=== PATIENT | male | born 1950 | race Caucasian/White ===

== ENCOUNTER 2017-04-10 00:20 | Inpatient (IN) | payer MEDICARE, OTHER ==
[~2017-04-10] VITALS: Ht 185.4 cm; Wt 66.2 kg
[2017-04-10] MEDS ORDERED: PROSCAR5 MG ORAL (00:21)
[2017-04-10] MEDS ORDERED: CRESTOR10 M2 ORAL (00:21)
[2017-04-10] MEDS ORDERED: DONEPEZIL HCL5 M2 ORAL (00:21)
[2017-04-10] MEDS ORDERED: CANDESARTAN CIL16 MG PO (00:21)
[2017-04-10] MEDS ORDERED: TAMSULOSIN HCL0.4 MG ORAL (00:21)
[2017-04-10] MEDS ORDERED: LEVETIRACETAM500 MG ORAL (00:21)
[2017-04-10] MEDS ORDERED: LEXAPRO10 MG ORAL (00:21)
[2017-04-10 00:22] VITALS: BP 146/58
--- NOTE | 2017-04-10 00:45 | Emergency Room Report ---
History of Present Illness General Chief Complaint: Altered Mental Status Source: Family Member, EMS Present Illness HPI 58-year-old male, history of hypertension hyperlipidemia, history of seizures, presenting with altered mental status. Patient currently only oriented to person, history is obtained by his sister at bedside. Patient lives with his sister, there is no industrial services worker, baseline is ANO x4, ambulatory, performs ADLs on his own, sister stated that she witnessed him sliding down the couch, having some upper extremity shaking, possible seizure-like activity, lasted for 3-4 minutes, patient altered afterwards and continues to be altered at this time. No head trauma. No tongue biting or urinary or fecal incontinence. Patient's sister states that he maybe had a seizure 6 years ago, is on keppra, does not otherwise know when his last one was as he just moved in to her apt. Otherwise sister states that he has been in his usual state of health today. Eating and drinking normally, no nausea vomiting diarrhea Allergies: Coded Allergies: No Known Allergies (Unverified , 04/10/17) Patient History Past Medical History: see triage record Past Surgical History: unable to obtain Pertinent Family History: unable to obtain Reviewed Nursing Documentation: PMH: Agreed, PSxH: Agreed Nursing Documentation-PMH Hx Seizures: Yes Review of Systems All Other Systems: limited - not giving hx at this time Physical Exam Vital Signs Date Time Temp Pulse Resp B/P (MAP) Pulse Ox O2 Delivery O2 Flow Rate FiO2 04/10/17 00:09 97.9 72 16 146/58 98 Room Air Sp02 EP Interpretation: reviewed, normal General Appearance: mild distress, other - Away, however appears drowsy, can say his name and random phrases, however not giving appropriate history Head: normocephalic, atraumatic Eyes: bilateral eye normal inspection, bilateral eye PERRL, bilateral eye EOMI ENT: normal ENT inspection, normal pharynx, normal voice, moist mucus membranes Neck: normal inspection, full range of motion, supple Respiratory: normal inspection, lungs clear, normal breath sounds, no respiratory distress, no retraction, no wheezing, speaking full sentences, chest symmetrical Cardiovascular #1: normal inspection, regular rate, rhythm, normal capillary refill Cardiovascular #2: 2+ radial (R), 2+ radial (L) Gastrointestinal: normal inspection, non tender, soft, non-distended, no guarding Musculoskeletal: normal inspection, back normal, normal range of motion, non- tender Neurologic: other - Awake, looking around, oriented to person only, motor strength is intact throughout, Babinski negative bilaterally, sensory is intact , cranial nerves are grossly intact, unable to assess gait Psychiatric: other - Not providing history Skin: normal inspection, normal color, no rash, warm/dry, well hydrated, normal turgor Medical Decision Making Diagnostic Impression: Primary Impression: Altered mental status Additional Impressions: Seizure Bradycardia UTI (urinary tract infection) ER Course 66-year-old male with p/w seizure DDX: Primary seizure, triggered by infection UTI/PNA vs. dehydration vs. medication non compliance Electrolyte disturbance: hypoglycemia vs. hyponatremia vs. hypocalcemia vs. hypomagnesemia Cardiac: Arrythmia/acs Intracranial pathology: intracranial bleed, stroke Plan: BGM EKG Labs, seizure medication levels Consider CT Ativan PRN / anti seizure meds ER course: Patient noted to have 2 episodes of bradycardia, heart rate in the 30s to 40s, blood pressure normal, during that time he was sleeping, when he wakes up due to alarms HR cmoes back up to 60s-70s. patient has not quite come back to his baseline mental status per her sister CT head negative - pending final read +UTI - ceftriaxone given keppra given Disposition: Patient requires admission to telemetry. D/W hospitalist Dr Joseph Please note that this Emergency Department Report was dictated using [employer] helper technology software, occasionally this can lead to erroneous entry secondary to interpretation by the dictation equipment EKG Diagnostic Results EP Interpretation: Yes Rate: normal Rhythm: NSR ST Segments: Right bundle branch block, T wave inversion noted in lead 3 only ASA given to patient: No Rhythm Strip EP Interpretation: Yes Rate: 70 Rhythm: NSR, no PVCs, no ectopy Chest X-ray CXR: Ordered: Yes 1 view Indication: Altered mental status EP interpretation: Yes Interpretation: No consolidation, no effusion, no PTX, no acute cardiopulmonary disease Impression: No acute disease Electronically signed by Calista Ramires MD Laboratory Tests Test 04/10/17 00:35 04/10/17 00:42 Urine Color Pale yellow Urine Appearance Slightly cloudy Urine pH 7 (4.5-8.0) Urine Specific [place] 1.015 (1.005-1.035) Urine Protein 2+ (NEGATIVE) H Urine Glucose (UA) Negative (NEGATIVE) Urine Ketones Negative (NEGATIVE) Urine Occult Blood 3+ (NEGATIVE) H Urine Nitrite Positive (NEGATIVE) H Urine Bilirubin Negative (NEGATIVE) Urine Urobilinogen Normal MG/DL (0.0-1.0) Urine Leukocyte Esterase 3+ (NEGATIVE) H Urine RBC 5-10 /HPF (0 - 0) H Urine WBC Tntc /HPF (0 - 0) H Urine Squamous Epithelial Cells None /LPF (NONE/OCC) Urine Bacteria Many /HPF (NONE) H White Blood Count 5.9 K/UL (4.8-10.8) Red Blood Count 3.69 M/UL (4.70-6.10) L Hemoglobin 11.5 G/DL (14.2-18.0) L Hematocrit 35.4 % (42.0-52.0) L Mean Corpuscular Volume 96 FL (80-99) Mean Corpuscular Hemoglobin 31.0 PG (27.0-31.0) Mean Corpuscular Hemoglobin Concent 32.3 G/DL (32.0-36.0) Red Cell Distribution Width 16.4 % (11.6-14.8) H Platelet Count 316 K/UL (150-450) Mean Platelet Volume 5.3 FL (6.5-10.1) L Neutrophils (%) (Auto) % (45.0-75.0) Lymphocytes (%) (Auto) % (20.0-45.0) Monocytes (%) (Auto) % (1.0-10.0) Eosinophils (%) (Auto) % (0.0-3.0) Basophils (%) (Auto) % (0.0-2.0) Sodium Level 139 MMOL/L (136-145) Potassium Level 4.1 MMOL/L (3.5-5.1) Chloride Level 104 MMOL/L (98-107) Carbon Dioxide Level 28 MMOL/L (21-32) Anion Gap 7 mmol/L (5-15) Blood Urea Nitrogen 27 mg/dL (7-18) H Creatinine 1.5 MG/DL (0.55-1.30) H Estimate Glomerular Filtration Rate 46.5 mL/min (>60) Glucose Level 126 MG/DL (74-106) H Calcium Level 8.8 MG/DL (8.5-10.1) Total Bilirubin 0.3 MG/DL (0.2-1.0) Aspartate Amino Transferase (AST) 21 U/L (15-37) Alanine Aminotransferase (ALT) 23 U/L (12-78) Alkaline Phosphatase 78 U/L (46-116) Total Creatine Kinase 52 U/L (26-308) Troponin I 0.007 ng/mL (0.000-0.056) Pro-B-Type Natriuretic Peptide 408 pg/mL (0-125) H Total Protein 7.1 G/DL (6.4-8.2) Albumin 3.3 G/DL (3.4-5.0) L Globulin 3.8 g/dL Albumin/Globulin Ratio 0.9 (1.0-2.7) L Last Vital Signs Date Time Temp Pulse Resp B/P (MAP) Pulse Ox O2 Delivery O2 Flow Rate FiO2 04/10/17 00:22 97.9 66 17 146/58 95 Room Air Disposition: ADMITTED INPATIENT Condition: Serious Calista Ramires M.D. Apr 10, 2017 00:45
[2017-04-10 00:56] LABS: HEMATOCRIT 35.4 % (42.0-52.0); HEMOGLOBIN 11.5 G/DL (14.2-18.0); MEAN CORPUSCULAR VOLUME 96 FL (80-99); PLATELET COUNT 316 K/UL (150-450); RED BLOOD COUNT 3.69 M/UL (4.70-6.10); RED CELL DISTRIBUTION WIDTH 16.4 % (11.6-14.8); WHITE BLOOD COUNT 5.9 K/UL (4.8-10.8)
[2017-04-10 01:11] LABS: ANION GAP 7 mmol/L (5-15); BLOOD UREA NITROGEN 27 mg/dL (7-18); CALCIUM 8.8 MG/DL (8.5-10.1); CARBON DIOXIDE 28 MMOL/L (21-32); CHLORIDE 104 MMOL/L (98-107); CREATININE 1.5 MG/DL (0.55-1.30); POTASSIUM 4.1 MMOL/L (3.5-5.1); SODIUM 139 MMOL/L (136-145)
[2017-04-10 01:22] LABS: ALANINE AMINOTRANSFERASE 23 U/L (12-78); ALBUMIN 3.3 G/DL (3.4-5.0); ALBUMIN/GLOBULIN RATIO 0.9 (1.0-2.7); ALKALINE PHOSPHATASE 78 U/L (46-116); ASPARTATE AMINO TRANSFERASE 21 U/L (15-37); BILIRUBIN,TOTAL 0.3 MG/DL (0.2-1.0); CREATINE KINASE 52 U/L (26-308)
[2017-04-10 01:47] LABS: APPEARANCE,URINE SLIGHTLY CLOUDY; BILIRUBIN, URINE NEGATIVE (NEGATIVE); COLOR,URINE PALE YELLOW; GLUCOSE, URINE (UA) NEGATIVE (NEGATIVE); KETONES,URINE NEGATIVE (NEGATIVE); LEUKOCYTE ESTERASE ,URINE 3+ (NEGATIVE); NITRITE,URINE POSITIVE (NEGATIVE); PH,URINE 7 (4.5-8.0); PROTEIN,URINE 2+ (NEGATIVE); UROBILINOGEN,URINE NORMAL MG/DL (0.0-1.0)
[2017-04-10] MEDS ORDERED: cefTRIAXone 1 GM in NS 55 ML IVPB ONE (02:00)
[2017-04-10] MEDS ORDERED: levETIRAcetam 1,500 MG in D5W 95 ML IVPB ONE (02:15)
[2017-04-10 02:22] VITALS: BP 125/68
[2017-04-10] MEDS ORDERED: levETIRAcetam 500mg vial IV ONE (02:38)
[2017-04-10] MEDS: LORazepam Inj 2mg/ml 1ml IV PRN ×2 (06:25→16:17)
[2017-04-10 08:24] VITALS: BP 105/54
[2017-04-10 08:51] LABS: HEMATOCRIT 34.2 % (42.0-52.0); HEMOGLOBIN 10.5 G/DL (14.2-18.0); MEAN CORPUSCULAR VOLUME 96 FL (80-99); PLATELET COUNT 197 K/UL (150-450); RED BLOOD COUNT 3.57 M/UL (4.70-6.10); WHITE BLOOD COUNT 9.6 K/UL (4.8-10.8)
[2017-04-10 09:07] LABS: ALANINE AMINOTRANSFERASE 17 U/L (12-78); ALBUMIN 2.8 G/DL (3.4-5.0); ALBUMIN/GLOBULIN RATIO 0.8 (1.0-2.7); ALKALINE PHOSPHATASE 66 U/L (46-116); ANION GAP 10 mmol/L (5-15); ASPARTATE AMINO TRANSFERASE 22 U/L (15-37); BILIRUBIN,TOTAL 0.5 MG/DL (0.2-1.0); BLOOD UREA NITROGEN 23 mg/dL (7-18); CALCIUM 8.3 MG/DL (8.5-10.1); CARBON DIOXIDE 24 MMOL/L (21-32); CHLORIDE 107 MMOL/L (98-107); CREATININE 1.5 MG/DL (0.55-1.30); POTASSIUM 3.6 MMOL/L (3.5-5.1); SODIUM 141 MMOL/L (136-145)
--- NOTE | 2017-04-10 10:45 | Diagnostic Imaging Report ---
Indication: Shortness of breath Technique: One view of the chest Comparison: none Findings: The heart size is normal. The lungs and pleural spaces are clear. The aorta is ectatic and tortuous and calcified Impression: No acute process
--- NOTE | 2017-04-10 10:48 | Diagnostic Imaging Report ---
Indications: Altered mental status Technique: Spiral acquisitions obtained through the brain. Angled axial and coronal 5 x 5 mm slices were reconstructed. Total dose length product 1407 mGycm. CTDI vol(s) 70 mGy. Dose reduction achieved using automated exposure control Comparison: None. Findings: No acute intracranial hemorrhage or edema. No mass effect or midline shift. There is encephalomalacia of the right occipital lobe. There is some focal deep subcortical white matter low attenuation in the left anterior parietal lobe. There is extensive chronic periosteal thickening of the right maxillary sinus. There is some ethmoid sinus disease. The mastoids are clear. The visualized orbits are unremarkable except for evidence of prior bilateral cataract surgery. 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 The CT scanner at [facility] is accredited by the [employer] and the scans are performed using protocols designed to limit radiation exposure to as low as reasonably achievable to attain images of sufficient resolution adequate for diagnostic evaluation.
--- NOTE | 2017-04-10 10:59 | Neurology Progress Note ---
Objective Physical Exam Last Vital Signs Date Time Temp Pulse Resp B/P (MAP) Pulse Ox O2 Delivery O2 Flow Rate FiO2 04/10/17 08:24 97.6 102 20 105/54 91 Room Air Laboratory Tests Test 04/10/17 00:35 04/10/17 00:42 04/10/17 08:45 Urine Color Pale yellow Urine Appearance Slightly cloudy Urine pH 7 (4.5-8.0) Urine Specific [place] 1.015 (1.005-1.035) Urine Protein 2+ (NEGATIVE) H Urine Glucose (UA) Negative (NEGATIVE) Urine Ketones Negative (NEGATIVE) Urine Occult Blood 3+ (NEGATIVE) H Urine Nitrite Positive (NEGATIVE) H Urine Bilirubin Negative (NEGATIVE) Urine Urobilinogen Normal MG/DL (0.0-1.0) Urine Leukocyte Esterase 3+ (NEGATIVE) H Urine RBC 5-10 /HPF (0 - 0) H Urine WBC Tntc /HPF (0 - 0) H Urine Squamous Epithelial Cells None /LPF (NONE/OCC) Urine Bacteria Many /HPF (NONE) H White Blood Count 5.9 K/UL (4.8-10.8) 9.6 K/UL (4.8-10.8) # Red Blood Count 3.69 M/UL (4.70-6.10) L 3.57 M/UL (4.70-6.10) L Hemoglobin 11.5 G/DL (14.2-18.0) L 10.5 G/DL (14.2-18.0) L Hematocrit 35.4 % (42.0-52.0) L 34.2 % (42.0-52.0) L Mean Corpuscular Volume 96 FL (80-99) 96 FL (80-99) Mean Corpuscular Hemoglobin 31.0 PG (27.0-31.0) 29.4 PG (27.0-31.0) Mean Corpuscular Hemoglobin Concent 32.3 G/DL (32.0-36.0) 30.7 G/DL (32.0-36.0) L Red Cell Distribution Width 16.4 % (11.6-14.8) H 16.0 % (11.6-14.8) H Platelet Count 316 K/UL (150-450) 197 K/UL (150-450) Mean Platelet Volume 5.3 FL (6.5-10.1) L 5.5 FL (6.5-10.1) L Neutrophils (%) (Auto) % (45.0-75.0) % (45.0-75.0) Lymphocytes (%) (Auto) % (20.0-45.0) % (20.0-45.0) Monocytes (%) (Auto) % (1.0-10.0) % (1.0-10.0) Eosinophils (%) (Auto) % (0.0-3.0) % (0.0-3.0) Basophils (%) (Auto) % (0.0-2.0) % (0.0-2.0) Sodium Level 139 MMOL/L (136-145) 141 MMOL/L (136-145) Potassium Level 4.1 MMOL/L (3.5-5.1) 3.6 MMOL/L (3.5-5.1) Chloride Level 104 MMOL/L (98-107) 107 MMOL/L (98-107) Carbon Dioxide Level 28 MMOL/L (21-32) 24 MMOL/L (21-32) Anion Gap 7 mmol/L (5-15) 10 mmol/L (5-15) Blood Urea Nitrogen 27 mg/dL (7-18) H 23 mg/dL (7-18) H Creatinine 1.5 MG/DL (0.55-1.30) H 1.5 MG/DL (0.55-1.30) H Estimat Glomerular Filtration Rate 46.5 mL/min (>60) 46.5 mL/min (>60) Glucose Level 126 MG/DL (74-106) H 122 MG/DL (74-106) H Calcium Level 8.8 MG/DL (8.5-10.1) 8.3 MG/DL (8.5-10.1) L Total Bilirubin 0.3 MG/DL (0.2-1.0) 0.5 MG/DL (0.2-1.0) Aspartate Amino Transf (AST/SGOT) 21 U/L (15-37) 22 U/L (15-37) Alanine Aminotransferase (ALT/SGPT) 23 U/L (12-78) 17 U/L (12-78) Alkaline Phosphatase 78 U/L (46-116) 66 U/L (46-116) Total Creatine Kinase 52 U/L (26-308) Troponin I 0.007 ng/mL (0.000-0.056) Pro-B-Type Natriuretic Peptide 408 pg/mL (0-125) H Total Protein 7.1 G/DL (6.4-8.2) 6.2 G/DL (6.4-8.2) L Albumin 3.3 G/DL (3.4-5.0) L 2.8 G/DL (3.4-5.0) L Globulin 3.8 g/dL 3.4 g/dL Albumin/Globulin Ratio 0.9 (1.0-2.7) L 0.8 (1.0-2.7) L Differential Total Cells Counted 100 Neutrophils % (Manual) 77 % (45-75) H Lymphocytes % (Manual) 3 % (20-45) L Monocytes % (Manual) 2 % (1-10) Eosinophils % (Manual) 0 % (0-3) Basophils % (Manual) 0 % (0-2) Band Neutrophils 18 % (0-8) H Platelet Estimate Adequate Platelet Morphology Normal Hypochromasia 1+ Anisocytosis 1+ Impression/Recommendations Problems: (1) seizure disorder, exacerbation (2) persistant unresponciveness, r/o urosepsis r/o nonconvulsive sz activity (3) UTI (urinary tract infection) (4) Bradycardia Status: unchanged Recommendations # [id number] NICKI CALLAHAN Apr 10, 2017 10:59
[2017-04-10 11:25] LABS: CHOLESTEROL 242 MG/DL (< 200); HDL CHOLESTEROL 78 MG/DL (40-60); TRIGLYCERIDES 44 MG/DL (30-150)
[2017-04-10] MEDS ORDERED: cefTRIAXone 1 GM in D5W 55 ML IVPB SCH (12:00)
[2017-04-10 12:03] VITALS: BP 125/67
[2017-04-10 16:00] VITALS: BP 110/70
--- NOTE | 2017-04-10 18:00 | Consultation ---
DATE OF CONSULTATION: 04/10/2017 INFECTIOUS DISEASES CONSULTATION CONSULTING PHYSICIAN: Stefano Kline M.D. PRIMARY ATTENDING PHYSICIAN: Nicolle Guerra M.D. REASON FOR CONSULTATION: Pyuria and urinary tract infection. HISTORY OF PRESENT ILLNESS: This 66-year-old white male is admitted today from home with altered mental status. According to family member, he was sliding along the couch with a seizure-like activity for 3 to 4 minutes. He was confused in the ER. According to the ER doctor, he was bradycardic with heart rate decreasing from 30 to 40 during sleep. The patient is not a source of the history. PAST MEDICAL HISTORY: He has a history of hypertension and dyslipidemia. MEDICATIONS: Home medications are none known, but he is currently getting Ativan and sodium chloride. He received a dose of Keppra and ceftriaxone. ALLERGIES: No known drug allergy. SOCIAL HISTORY: The patient is single. No other history was obtainable from the patient. Currently sedated and sleeping. PHYSICAL EXAMINATION: VITAL SIGNS: Temperature 97.6, pulse 102, and blood pressure 105/54. HEAD AND NECK: Slightly dry mouth. HEART: Tachycardic. LUNGS: Clear. ABDOMEN: Soft and nontender. EXTREMITIES: Has no edema. GENITOURINARY: Has a condom catheter. LABORATORY AND DIAGNOSTIC DATA: WBC 9.6, hemoglobin 10.5, hematocrit 34.2, and platelets 197. Sodium 141, potassium 3.6, chloride 107, bicarbonate 24, BUN 23, creatinine 1.5, and glucose 122. Albumin is 2.8. Chest x-ray was negative. CT scan of the head shows chronic changes including chronic right maxillary sinus disease. UA showed WBC too numerous to count, RBCs 5 to 10, leukocyte esterase 3+ and nitrite positive. IMPRESSION: Pyuria, likely urinary tract infection. The patient was symptomatic with altered mental status and seizure-like activity. He has a history of hypertension. He had bradycardia and dyslipidemia. RECOMMENDATION: Continue with Rocephin. At the end of my exam, I thank Dr. Guerra for involving me in the care of this patient. We will follow up the cultures. Stefano Kline M.D. DR: ORALIA JOB#: [id number] CC:
--- NOTE | 2017-04-10 18:31 | Consultation ---
DATE OF CONSULTATION: 04/10/2017 NEUROLOGICAL CONSULTATION CONSULTING PHYSICIAN: Rudy Vasquez M.D. REQUESTING PHYSICIAN: Nicolle Guerra M.D. HISTORY OF PRESENT ILLNESS: This 66-year-old man seen in neurological consultation to evaluate the recurrence of seizure activity, persistent unresponsiveness. The patient is unable to provide with history. This was obtained from medical records. Apparently since admission till present time, the patient was in the presence of a sitter, who described that he remained unresponsive. No seizure activities noted since his admission. Apparently, the patient, who has a baseline of being oriented x4, ambulatory, performing all activities of daily living, lives with his sister and has no health care marketing specialist, witnessed to have an episode when he was sitting in his couch. He started to slide down with upper extremity shaking. It lasted three or four minutes. He became alert afterwards. There was no tongue biting. No urine or bowel incontinence. Following event, he was eating and drinking normal. He had no nausea, vomiting, or diarrhea. He was brought to emergency room being confused, oriented to his name only. He was drowsy. He would say random phrases, but not able to give any appropriate history. His blood pressure was 146/58 and temperature 97.9 degrees. There were no lateralizing deficits otherwise. His laboratory studies included CBC with mild anemia, hemoglobin 11.5 and hematocrit 35.4. There were 18 bands. His chemistry panel with BUN of 27, creatinine 1.5, and blood sugar 126. BNP of 408. Normal troponin. Urinalysis with WBC too numerous to count, 3+ leukocyte esterase, and 2+ protein. CAT scan of the brain was obtained and reported with no intracranial abnormalities, no bleed, no evidence of stroke. His EKG, normal sinus rhythm, right bundle-branch block. No PVC. No ectopy. Chest x-ray, no acute disease noted. While under observation, he had two episodes of bradycardia with heart rate down to 30-40 while blood pressure remained normal. While this occurred, he was sleeping. His heart rate went back to normal 60 to 70. PAST MEDICAL HISTORY: The patient has a history of seizure disorder for the last six years. He is on Keppra 500 mg b.i.d. His sister indicated that he just moved to her apartment and she is not sure if he had some other seizures recently. MEDICATIONS: His treatment prior to admission included Keppra 500 mg b.i.d., Crestor 10 mg daily, tamsulosin, Proscar, Lexapro, Aricept 5 mg at bedtime, and candesartan. ALLERGIES: None reported. SOCIAL HISTORY: As mentioned, the patient lives with his sister. No evidence of previous alcohol or drug abuse. FAMILY HISTORY: Unavailable. REVIEW OF SYMPTOMS: Unable to obtain due to the patient's status. PHYSICAL EXAMINATION: GENERAL: He is a well-developed, somewhat malnourished, pale, and ill-appearing man, not in acute distress. VITAL SIGNS: Stable. Blood pressure 105/54 and heart rate of 102. He is afebrile. HEENT: Head, normocephalic. There are no visible signs of trauma. NECK: Rigid in all directions. MUSCULOSKELETAL: Unremarkable. There are no deformities. SKIN: Unremarkable. No rash. No petechia. Carotids are 1+, bilaterally symmetric. MENTAL STATUS: The patient is unresponsive to voice or stimulation. Does not open eyes. Does not follow commands. CRANIAL NERVES II: 2 mm on the right and 3 mm on the left, sluggishly responding to the light on the left. The patient has history of "blind eye". Extraocular movements, full range on doll maneuver. CRANIAL NERVES V: Normal corneal responses. CRANIAL NERVES VII: No facial asymmetry. CRANIAL NERVES VIII: Unable to test. The patient was not responding to voice command. CRANIAL NERVES IX THROUGH XII: Reduced gag response. Tongue is in midline. MOTOR EXAMINATION: Slight diffuse rigidity, but unable to hold arms and legs against the gravity. No asymmetry in responses. Deep tendon reflexes depressed bilaterally. Plantar response is mute. No pathological responses noted. SENSORY EXAMINATION: No response to pin stimulation. IMPRESSION: 1. Persistent verbal unresponsiveness. Rule out postictal state. Rule out urosepsis. Rule out nonconvulsive seizure activity. 2. History of chronic seizure disorder exacerbation. 3. Incomplete data. 4. Paroxysmal bradycardia. 5. Sinus tachycardia. 6. Renal insufficiency. 7. Urinary tract infection, rule out urosepsis. RECOMMENDATIONS: 1. Stat MRI of the brain without contrast. 2. Reload with Keppra 1000 mg now, followed by 1000 mg b.i.d. 3. EEG. 4. IV fluids, antibiotics to cover underlying infection. 5. Monitored bed. 6. If no improvement, we will obtain spinal tap. Rudy Lin Vasquez DR: Esdras JOB#: [id number] CC:
--- NOTE | 2017-04-10 19:31 | Consultation ---
History of Present Illness General Chief Complaint: Altered Mental Status Present Illness HPI 66-year-old white male is admitted from home with altered mental status. According to family member, he was sliding along the couch with a seizure-like activity for 3 to 4 minutes. He was confused in the ER. the pt was agitated and was given medications. the pt pw waxing and waning of consciousness. Allergies: Coded Allergies: No Known Allergies (Unverified , 04/10/17) Medication History Scheduled Candesartan Cilexetil (Candesartan Cilexetil), 16 MG PO DAILY, (Reported) Donepezil Hcl* (Donepezil Hcl*), 5 MG ORAL BEDTIME, (Reported) Escitalopram Oxalate* (Lexapro*), 5 MG ORAL DAILY, (Reported) Finasteride* (Proscar*), 1 MG ORAL DAILY, (Reported) Levetiracetam* (Levetiracetam*), 500 MG ORAL TWICE A DAY, (Reported) Rosuvastatin Calcium* (Crestor*), 10 MG ORAL DAILY, (Reported) Tamsulosin Hcl (Tamsulosin Hcl*), 0.4 MG ORAL BEDTIME, (Reported) Patient History Limited by: medical condition History Provided By: Patient, Significant Other, PMD Healthcare decision maker Resuscitation status Full Code Advanced Directive on File Past Medical/Surgical History Past Medical/Surgical History: (1) UTI (urinary tract infection) (2) Bradycardia (3) Seizure (4) Altered mental status (5) seizure disorder, exacerbation (6) persistant unresponciveness, r/o urosepsis r/o nonconvulsive sz activity Review of Systems Psychiatric: Reports: prior hx, anxiety, depressed feelings, emotional problems Physical Exam General Appearance: WD/WN, no apparent distress, alert, confused, agitated Neurologic: disoriented, depressed affect Last 24 Hour Vital Signs Date Time Temp Pulse Resp B/P (MAP) Pulse Ox O2 Delivery O2 Flow Rate FiO2 04/10/17 16:00 98.2 82 20 110/70 94 Room Air 04/10/17 16:00 86 04/10/17 12:03 98.0 94 21 125/67 94 Room Air 04/10/17 12:00 95 04/10/17 08:24 97.6 102 20 105/54 91 Room Air 04/10/17 08:00 102 12/13/17 04:00 111 04/10/17 03:25 97.9 80 21 115/63 99 Room Air 04/10/17 02:22 98.1 78 20 125/68 98 Room Air 04/10/17 00:22 97.9 66 17 146/58 95 Room Air 04/10/17 00:09 97.9 72 16 146/58 98 Room Air Intake and Output 04/10/17 04/11/17 19:00 07:00 Intake Total 700 ml Balance 700 ml IV Total 700 ml # Voids 3 Laboratory Tests Test 04/10/17 00:35 04/10/17 00:42 04/10/17 08:45 Urine Color Pale yellow Urine Appearance Slightly cloudy Urine pH 7 (4.5-8.0) Urine Specific [place] 1.015 (1.005-1.035) Urine Protein 2+ (NEGATIVE) H Urine Glucose (UA) Negative (NEGATIVE) Urine Ketones Negative (NEGATIVE) Urine Occult Blood 3+ (NEGATIVE) H Urine Nitrite Positive (NEGATIVE) H Urine Bilirubin Negative (NEGATIVE) Urine Urobilinogen Normal MG/DL (0.0-1.0) Urine Leukocyte Esterase 3+ (NEGATIVE) H Urine RBC 5-10 /HPF (0 - 0) H Urine WBC Tntc /HPF (0 - 0) H Urine Squamous Epithelial Cells None /LPF (NONE/OCC) Urine Bacteria Many /HPF (NONE) H White Blood Count 5.9 K/UL (4.8-10.8) 9.6 K/UL (4.8-10.8) # Red Blood Count 3.69 M/UL (4.70-6.10) L 3.57 M/UL (4.70-6.10) L Hemoglobin 11.5 G/DL (14.2-18.0) L 10.5 G/DL (14.2-18.0) L Hematocrit 35.4 % (42.0-52.0) L 34.2 % (42.0-52.0) L Mean Corpuscular Volume 96 FL (80-99) 96 FL (80-99) Mean Corpuscular Hemoglobin 31.0 PG (27.0-31.0) 29.4 PG (27.0-31.0) Mean Corpuscular Hemoglobin Concent 32.3 G/DL (32.0-36.0) 30.7 G/DL (32.0-36.0) L Red Cell Distribution Width 16.4 % (11.6-14.8) H 16.0 % (11.6-14.8) H Platelet Count 316 K/UL (150-450) 197 K/UL (150-450) Mean Platelet Volume 5.3 FL (6.5-10.1) L 5.5 FL (6.5-10.1) L Neutrophils (%) (Auto) % (45.0-75.0) % (45.0-75.0) Lymphocytes (%) (Auto) % (20.0-45.0) % (20.0-45.0) Monocytes (%) (Auto) % (1.0-10.0) % (1.0-10.0) Eosinophils (%) (Auto) % (0.0-3.0) % (0.0-3.0) Basophils (%) (Auto) % (0.0-2.0) % (0.0-2.0) Sodium Level 139 MMOL/L (136-145) 141 MMOL/L (136-145) Potassium Level 4.1 MMOL/L (3.5-5.1) 3.6 MMOL/L (3.5-5.1) Chloride Level 104 MMOL/L (98-107) 107 MMOL/L (98-107) Carbon Dioxide Level 28 MMOL/L (21-32) 24 MMOL/L (21-32) Anion Gap 7 mmol/L (5-15) 10 mmol/L (5-15) Blood Urea Nitrogen 27 mg/dL (7-18) H 23 mg/dL (7-18) H Creatinine 1.5 MG/DL (0.55-1.30) H 1.5 MG/DL (0.55-1.30) H Estimat Glomerular Filtration Rate 46.5 mL/min (>60) 46.5 mL/min (>60) Glucose Level 126 MG/DL (74-106) H 122 MG/DL (74-106) H Calcium Level 8.8 MG/DL (8.5-10.1) 8.3 MG/DL (8.5-10.1) L Total Bilirubin 0.3 MG/DL (0.2-1.0) 0.5 MG/DL (0.2-1.0) Aspartate Amino Transf (AST/SGOT) 21 U/L (15-37) 22 U/L (15-37) Alanine Aminotransferase (ALT/SGPT) 23 U/L (12-78) 17 U/L (12-78) Alkaline Phosphatase 78 U/L (46-116) 66 U/L (46-116) Total Creatine Kinase 52 U/L (26-308) Troponin I 0.007 ng/mL (0.000-0.056) Pro-B-Type Natriuretic Peptide 408 pg/mL (0-125) H Total Protein 7.1 G/DL (6.4-8.2) 6.2 G/DL (6.4-8.2) L Albumin 3.3 G/DL (3.4-5.0) L 2.8 G/DL (3.4-5.0) L Globulin 3.8 g/dL 3.4 g/dL Albumin/Globulin Ratio 0.9 (1.0-2.7) L 0.8 (1.0-2.7) L Differential Total Cells Counted 100 Neutrophils % (Manual) 77 % (45-75) H Lymphocytes % (Manual) 3 % (20-45) L Monocytes % (Manual) 2 % (1-10) Eosinophils % (Manual) 0 % (0-3) Basophils % (Manual) 0 % (0-2) Band Neutrophils 18 % (0-8) H Platelet Estimate Adequate Platelet Morphology Normal Hypochromasia 1+ Anisocytosis 1+ Triglycerides Level 44 MG/DL (30-150) Cholesterol Level 242 MG/DL (< 200) H LDL Cholesterol 161 mg/dL (<100) H HDL Cholesterol 78 MG/DL (40-60) H Cholesterol/HDL Ratio 3.1 (3.3-4.4) L Vitamin B12 Level 445 PG/ML (193-986) Height (Feet): 6 Height (Inches): 1.00 Weight (Pounds): 146 Medications Current Medications Medications (Trade) Dose Ordered Sig/Miguel Angel Route PRN Reason Start Time Stop Time Status Last Admin Dose Admin Acetaminophen (Tylenol) 650 mg Q4H PRN ORAL Mild Pain/Temp > 100.5 04/10/17 13:45 05/10/17 13:44 Ceftriaxone Sodium 1 gm/ Dextrose 55 ml @ 110 mls/hr Q24H IVPB 04/10/17 12:00 04/17/17 11:59 04/10/17 13:01 Levetiracetam 1500 mg/Dextrose 110 ml @ 440 mls/hr Q12HR IV 04/10/17 21:00 05/10/17 20:59 Lorazepam (Ativan 2mg/ml 1ml) 1 mg Q4H PRN IV For Anxiety 04/10/17 06:15 04/17/17 06:14 04/10/17 16:17 Sodium Chloride 1,000 ml @ 70 mls/hr [id number] IV 04/10/17 06:15 05/10/17 06:14 04/10/17 06:30 Assessment/Plan Status: not improved, unchanged Assessment/Plan encephalopathy low dose antipsychotics Fiordaliza Koehler M.D. Apr 10, 2017 19:31
[2017-04-10] MEDS ORDERED: Haloperidol 5mg/ml Inj IM PRN (19:45)
[2017-04-10 20:28] VITALS: BP 115/56
[2017-04-10] MEDS ORDERED: levETIRAcetam 1,500 MG in D5W 95 ML IV SCH (21:00)
--- NOTE | 2017-04-10 22:02 | History and Physical Report ---
DATE OF ADMISSION: 04/10/2017 HISTORY OF PRESENT ILLNESS: The patient has had a 10-day witnessed seizure, on Keppra, likely triggering factor could be also UTI. The patient is kind of lethargic, however, responsive to noxious stimuli. He is altered and a sitter has already been ordered due to confusion and altered mental status. According to the ER doctor, CT scan initially was grossly negative. The patient is nonverbal, very confused, cannot give any history. PAST MEDICAL HISTORY: We cannot obtain much history. We are not sure whether the patient has dementia at baseline or whether had seizure at baseline. We will try to contact family member. According to medications that the patient takes, apparently the patient does have dementia and seizures. Hyperlipidemia, dementia, depression, BPH, and seizure disorder. MEDICATIONS: Benazepril, Lexapro, finasteride, Keppra, Crestor, and Flomax. ALLERGIES: No known allergies. FAMILY HISTORY: Unable to obtain. SOCIAL HISTORY: Unable to obtain. REVIEW OF SYSTEMS: Unable to obtain. PHYSICAL EXAMINATION: VITAL SIGNS: Temperature 97.9, pulse is 80, and blood pressure 115/63. HEENT: PERRLA. NECK: Supple. No lymphadenopathy. CHEST: Clear to auscultation. GASTROINTESTINAL: Soft and nontender. No organomegaly. EXTREMITIES: No edema. Reflexes in both sides. Opens eyes to noxious stimuli, otherwise, sleeping for most of the day, postictal most likely. He is able to move extremities. However, he does not follow neurological exam. LABORATORY DATA: WBC of 5.9, hemoglobin 11.5, and platelets of 316. Sodium 139, potassium 4.1, BUN of 27, and creatinine 1.5. The patient has UTI. ASSESSMENT AND PLAN: 1. Breakthrough seizure. 2. Urinary tract infection. 3. Azotemia. 4. Dehydration. 5. I have asked Dr. Vasquez, Dr. Aguilera, Dr. Horvath, and Dr. Koehler to see the patient for the agitation and the above-mentioned diagnoses and treatment. Nicolle Guerra M.D. DR: PETE JOB#: [id number] CC:
[2017-04-11] VITALS: BP 114/55
[2017-04-11 04:00] VITALS: BP 106/57
[2017-04-11 08:15] VITALS: BP 108/59
--- NOTE | 2017-04-11 08:50 | Infectious Diseases Prog Note ---
Assessment/Plan Assessment/Plan A; UTI AMS Encephalopathy Seizure disorder HPN P; Continue Rocephin will f/u MRI will try to contact family for more information Subjective ROS Limited/Unobtainable: Yes Allergies: Coded Allergies: No Known Allergies (Unverified , 04/10/17) Objective Vital Signs Last 24 Hour Vital Signs Date Time Temp Pulse Resp B/P (MAP) Pulse Ox O2 Delivery O2 Flow Rate FiO2 04/11/17 08:15 97.2 65 18 108/59 96 Room Air 04/11/17 04:00 71 04/11/17 04:00 98.4 82 20 106/57 97 Room Air 04/11/17 00:00 98.7 80 20 114/55 96 Room Air 04/11/17 00:00 78 04/10/17 20:28 99.0 77 20 115/56 97 Room Air 04/10/17 20:00 77 04/10/17 16:00 98.2 82 20 110/70 94 Room Air 04/10/17 16:00 86 04/10/17 12:03 98.0 94 21 125/67 94 Room Air 04/10/17 12:00 95 Height (Feet): 6 Height (Inches): 1.00 Weight (Pounds): 146 General Appearance: no acute distress HEENT: mucous membranes moist Respiratory/Chest: lungs clear Cardiovascular: normal rate Abdomen: soft, non tender Extremities: no edema Neurologic/Psychiatric: other - opens eyes, sleeps Microbiology Date/Time Source Procedure Growth Status 04/10/17 00:35 Urine,Clean Catch Urine Culture - Preliminary Gram Negative Bacillus 1 Resulted Laboratory Tests Test 04/10/17 08:45 White Blood Count 9.6 K/UL (4.8-10.8) # Red Blood Count 3.57 M/UL (4.70-6.10) L Hemoglobin 10.5 G/DL (14.2-18.0) L Hematocrit 34.2 % (42.0-52.0) L Mean Corpuscular Volume 96 FL (80-99) Mean Corpuscular Hemoglobin 29.4 PG (27.0-31.0) Mean Corpuscular Hemoglobin Concent 30.7 G/DL (32.0-36.0) L Red Cell Distribution Width 16.0 % (11.6-14.8) H Platelet Count 197 K/UL (150-450) Mean Platelet Volume 5.5 FL (6.5-10.1) L Neutrophils (%) (Auto) % (45.0-75.0) Lymphocytes (%) (Auto) % (20.0-45.0) Monocytes (%) (Auto) % (1.0-10.0) Eosinophils (%) (Auto) % (0.0-3.0) Basophils (%) (Auto) % (0.0-2.0) Differential Total Cells Counted 100 Neutrophils % (Manual) 77 % (45-75) H Lymphocytes % (Manual) 3 % (20-45) L Monocytes % (Manual) 2 % (1-10) Eosinophils % (Manual) 0 % (0-3) Basophils % (Manual) 0 % (0-2) Band Neutrophils 18 % (0-8) H Platelet Estimate Adequate Platelet Morphology Normal Hypochromasia 1+ Anisocytosis 1+ Sodium Level 141 MMOL/L (136-145) Potassium Level 3.6 MMOL/L (3.5-5.1) Chloride Level 107 MMOL/L (98-107) Carbon Dioxide Level 24 MMOL/L (21-32) Anion Gap 10 mmol/L (5-15) Blood Urea Nitrogen 23 mg/dL (7-18) H Creatinine 1.5 MG/DL (0.55-1.30) H Estimat Glomerular Filtration Rate 46.5 mL/min (>60) Glucose Level 122 MG/DL (74-106) H Calcium Level 8.3 MG/DL (8.5-10.1) L Total Bilirubin 0.5 MG/DL (0.2-1.0) Aspartate Amino Transf (AST/SGOT) 22 U/L (15-37) Alanine Aminotransferase (ALT/SGPT) 17 U/L (12-78) Alkaline Phosphatase 66 U/L (46-116) Total Protein 6.2 G/DL (6.4-8.2) L Albumin 2.8 G/DL (3.4-5.0) L Globulin 3.4 g/dL Albumin/Globulin Ratio 0.8 (1.0-2.7) L Triglycerides Level 44 MG/DL (30-150) Cholesterol Level 242 MG/DL (< 200) H LDL Cholesterol 161 mg/dL (<100) H HDL Cholesterol 78 MG/DL (40-60) H Cholesterol/HDL Ratio 3.1 (3.3-4.4) L Vitamin B12 Level 445 PG/ML (193-986) Current Medications Medications (Trade) Dose Ordered Sig/Miguel Angel Route PRN Reason Start Time Stop Time Status Last Admin Dose Admin Acetaminophen (Tylenol) 650 mg Q4H PRN ORAL Mild Pain/Temp > 100.5 04/11/17 01:45 05/10/17 13:44 Ceftriaxone Sodium 1 gm/ Dextrose 55 ml @ 110 mls/hr Q24H IVPB 04/11/17 12:00 04/17/17 11:59 Haloperidol Lactate (Haldol) 5 mg Q8H PRN IM Agitation 04/11/17 03:45 05/10/17 19:44 Levetiracetam 1500 mg/Dextrose 110 ml @ 440 mls/hr Q12HR IV 04/11/17 10:00 05/10/17 09:59 Olanzapine (ZyPREXA) 5 mg BEDTIME ORAL 04/11/17 21:00 05/10/17 20:59 Sodium Chloride 1,000 ml @ 70 mls/hr [id number] IV 04/11/17 00:00 05/10/17 06:14 04/11/17 00:03 LUCRETIA MURPHY Apr 11, 2017 08:50
[2017-04-11] MEDS ORDERED: NORVASC10 MG ORAL (09:18)
[2017-04-11] MEDS: levETIRAcetam 1,500 MG in D5W 95 ML IV SCH ×2 (11:00→21:20)
--- NOTE | 2017-04-11 11:00 | Cardiology Report ---
APPROVED REPORT EKG Measurement Heart [id number] Normal sinus rhythm Right bundle branch block Voltage criteria for left ventricular hypertrophy Abnormal ECG
[2017-04-11] MEDS ORDERED: cefTRIAXone 1 GM in D5W 55 ML IVPB SCH (12:00)
[2017-04-11] MEDS: Haloperidol 5mg/ml Inj IM PRN ×2 (12:19→21:21)
[2017-04-11 12:49] VITALS: BP 135/62
[2017-04-11] MEDS ORDERED: Haloperidol 5mg/ml Inj IM ONE ×3 (15:15→18:30)
[2017-04-11 16:04] VITALS: BP 141/56
[2017-04-11] MEDS ORDERED: 1/2 NS 1000ml IV ONE (17:24)
[2017-04-11] MEDS ORDERED: DiphenhydrAMINE 50mg/ml Inj IM ONE (18:30)
[2017-04-11] MEDS ORDERED: LORazepam 1mg tab ORAL ONE (18:30)
[2017-04-11] MEDS ORDERED: LORazepam Inj 2mg/ml 1ml IM ONE (18:45)
[2017-04-11 20:00] VITALS: BP 140/69
--- NOTE | 2017-04-11 21:13 | General Progress Note ---
Assessment/Plan Problem List: (1) UTI (urinary tract infection) ICD Codes: N39.0 - Urinary tract infection, site not specified SNOMED: 54804841 (2) Seizure ICD Codes: R56.9 - Unspecified convulsions SNOMED: 04727324 (3) persistant unresponciveness, r/o urosepsis r/o nonconvulsive sz activity (4) Altered mental status ICD Codes: R41.82 - Altered mental status, unspecified SNOMED: 689864326 Status: progressing Assessment/Plan confused seizure disorder anti epliptic per neurologist afeberile uti and sepsis improving Subjective ROS Limited/Unobtainable: Yes Allergies: Coded Allergies: No Known Allergies (Unverified , 04/10/17) Objective Last 24 Hour Vital Signs Date Time Temp Pulse Resp B/P (MAP) Pulse Ox O2 Delivery O2 Flow Rate FiO2 04/11/17 20:00 97.5 69 21 140/69 96 04/11/17 16:04 97.5 72 20 141/56 94 Room Air 04/11/17 16:00 78 04/11/17 12:49 98.0 77 18 135/62 98 Room Air 04/11/17 12:00 64 04/11/17 08:15 97.2 65 18 108/59 96 Room Air 04/11/17 08:00 67 04/11/17 04:00 71 04/11/17 04:00 98.4 82 20 106/57 97 Room Air 04/11/17 00:00 98.7 80 20 114/55 96 Room Air 04/11/17 00:00 78 Intake and Output 04/11/17 04/12/17 19:00 07:00 Intake Total 165 ml Balance 165 ml IV Total 165 ml # Voids 2 Height (Feet): 6 Height (Inches): 1.00 Weight (Pounds): 146 Respiratory/Chest: lungs clear Nicolle Guerra MD Apr 11, 2017 21:13
[2017-04-12] VITALS: BP 156/73
[2017-04-12] MEDS: Haloperidol 5mg/ml Inj IM PRN ×4 (02:44→23:20)
[2017-04-12 04:00] VITALS: BP 147/67
--- NOTE | 2017-04-12 06:45 | Progress Note ---
DATE: 04/11/2017 SUBJECTIVE: The patient continues to be confused, easily agitated. He received multiple shots of Haldol and has not been calmed down. The patient is easily agitated, pulling on his IV. MENTAL STATUS EXAMINATION: The patient is confused, disoriented, not able to be engaged during the evaluation. Mood is agitated. Affect is constricted. Congruent with mood. Thought process is concrete. Thought content, no suicidal or homicidal ideation. ASSESSMENT: 1. Encephalopathy. 2. Agitation. PLAN: 1. We will increase the Haldol to 5 mg every six hours p.r.n. for agitation. 2. We will increase the olanzapine to 10 mg p.o. nightly. 3. Discontinue the Ativan. 4. We will continue to follow and readjust the medications. Fiordaliza Koehler M.D. DR: Angelica JOB#: [id number] CC:
[2017-04-12 08:00] VITALS: BP 125/57
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
[2017-04-12] MEDS: levETIRAcetam 1,500 MG in D5W 95 ML IV SCH ×2 (09:30→21:10)
[2017-04-12 09:59] LABS: HEMOGLOBIN 11.2 G/DL (14.2-18.0); MEAN CORPUSCULAR VOLUME 95 FL (80-99); PLATELET COUNT 191 K/UL (150-450); RED BLOOD COUNT 3.69 M/UL (4.70-6.10); RED CELL DISTRIBUTION WIDTH 15.8 % (11.6-14.8); WHITE BLOOD COUNT 17.4 K/UL (4.8-10.8)
[2017-04-12 10:10] LABS: ANION GAP 9 mmol/L (5-15); BLOOD UREA NITROGEN 28 mg/dL (7-18); CALCIUM 8.4 MG/DL (8.5-10.1); CARBON DIOXIDE 25 MMOL/L (21-32); CHLORIDE 111 MMOL/L (98-107); CREATININE 1.5 MG/DL (0.55-1.30); POTASSIUM 3.3 MMOL/L (3.5-5.1); SODIUM 145 MMOL/L (136-145)
[2017-04-12 12:00] VITALS: BP 140/91
[2017-04-12] MEDS: Meropenem 500 MG in NS 55 ML IVPB SCH ×2 (12:25→17:15)
--- NOTE | 2017-04-12 12:35 | Neurology Progress Note ---
Interim History Interim History ROS Limited/Unobtainable: Yes Complaints: sedated with [id number] Events: episodes of agitation , psychotic behavior Objective Physical Exam Last Vital Signs Date Time Temp Pulse Resp B/P (MAP) Pulse Ox O2 Delivery O2 Flow Rate FiO2 04/12/17 08:00 64 04/12/17 08:00 97.3 20 125/57 94 04/11/17 16:04 Room Air Laboratory Tests Test 04/12/17 09:28 White Blood Count 17.4 K/UL (4.8-10.8) H Red Blood Count 3.69 M/UL (4.70-6.10) L Hemoglobin 11.2 G/DL (14.2-18.0) L Hematocrit 35.0 % (42.0-52.0) L Mean Corpuscular Volume 95 FL (80-99) Mean Corpuscular Hemoglobin 30.5 PG (27.0-31.0) Mean Corpuscular Hemoglobin Concent 32.2 G/DL (32.0-36.0) Red Cell Distribution Width 15.8 % (11.6-14.8) H Platelet Count 191 K/UL (150-450) Mean Platelet Volume 6.2 FL (6.5-10.1) L Neutrophils (%) (Auto) % (45.0-75.0) Lymphocytes (%) (Auto) % (20.0-45.0) Monocytes (%) (Auto) % (1.0-10.0) Eosinophils (%) (Auto) % (0.0-3.0) Basophils (%) (Auto) % (0.0-2.0) Differential Total Cells Counted 100 Neutrophils % (Manual) 93 % (45-75) H Lymphocytes % (Manual) 3 % (20-45) L Monocytes % (Manual) 3 % (1-10) Eosinophils % (Manual) 0 % (0-3) Basophils % (Manual) 0 % (0-2) Band Neutrophils 1 % (0-8) Platelet Estimate Adequate Platelet Morphology Normal Hypochromasia 1+ Anisocytosis 1+ Sodium Level 145 MMOL/L (136-145) Potassium Level 3.3 MMOL/L (3.5-5.1) L Chloride Level 111 MMOL/L (98-107) H Carbon Dioxide Level 25 MMOL/L (21-32) Anion Gap 9 mmol/L (5-15) Blood Urea Nitrogen 28 mg/dL (7-18) H Creatinine 1.5 MG/DL (0.55-1.30) H Estimat Glomerular Filtration Rate 46.5 mL/min (>60) Glucose Level 74 MG/DL (74-106) Calcium Level 8.4 MG/DL (8.5-10.1) L General: well developed, well nourished, no acute distress, other - asleep Head: normocophalic, atraumatic Neck: no rigidity Neurologic Exam Mental Status: other - sedated Speech: other Language: other Cranial Nerve II: no papilledema Cranial Nerves III, IV, : pupils Cranial Nerve V: masseters function normal Cranial Nerve VII: normal facial expressions Cranial Nerve VIII: no nystagmus Cranial Nerve IX: gag response Cranial Nerve XI: trapezii function normal Cranial Nerve XII: no tongue atrophy/fasciculations Motor System: no involuntary movement, no muscle wasting Sensory: other Coordination: other Deep Tendon Reflexes: 0 bicep (L), 0 bicep (R), 0 tricep (L), 0 tricep (R), 0 brachioradialis (L), 0 brachioradialis (R), 0 knee (L), 0 knee (R), 0 ankle (L) , 0 ankle (R) Reflexes: mute plantar (L), mute plantar (R) Impression/Recommendations Problems: (1) seizure disorder, exacerbation (2) persistant unresponciveness, r/o urosepsis r/o nonconvulsive sz activity (3) UTI (urinary tract infection) (4) Bradycardia Status: progressing, not improved, unchanged Recommendations # [id number] sz activity R T/P lobe add Depakote 500mg bid ivpb [id number] per ID --- get LP MRI brain NICKI CALLAHAN Apr 12, 2017 12:35
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
[2017-04-12] MEDS ORDERED: LORazepam Inj 2mg/ml 1ml IV ONE (13:45)
[2017-04-12] MEDS: Valproate Sodium INJ 500 MG in D5W 55 ML IVPB SCH ×2 (14:47→21:09)
--- NOTE | 2017-04-12 15:57 | General Progress Note ---
Assessment/Plan Assessment/Plan confused seizure disorder anti epliptic per neurologist uti sepsis assuming care per insurance MRI just done start clears ST eval cont abx Subjective ROS Limited/Unobtainable: Yes Allergies: Coded Allergies: No Known Allergies (Unverified , 04/10/17) Objective Last 24 Hour Vital Signs Date Time Temp Pulse Resp B/P (MAP) Pulse Ox O2 Delivery O2 Flow Rate FiO2 04/12/17 12:00 97.5 70 20 140/91 95 04/12/17 12:00 64 04/12/17 08:00 64 04/12/17 08:00 97.3 72 20 125/57 94 04/12/17 04:00 69 04/12/17 04:00 97.5 65 21 147/67 97 04/12/17 00:00 97.3 77 21 156/73 97 04/12/17 00:00 70 04/11/17 20:00 97.5 69 21 140/69 96 04/11/17 20:00 73 04/11/17 16:04 97.5 72 20 141/56 94 Room Air 04/11/17 16:00 78 Intake and Output 04/12/17 04/13/17 19:00 07:00 Intake Total 497 ml Balance 497 ml IV Total 497 ml Laboratory Tests 04/12/17 09:28: White Blood Count 17.4H, Red Blood Count 3.69L, Hemoglobin 11.2L, Hematocrit 35.0L, Mean Corpuscular Volume 95, Mean Corpuscular Hemoglobin 30.5, Mean Corpuscular Hemoglobin Concent 32.2, Red Cell Distribution Width 15.8H, Platelet Count 191, Mean Platelet Volume 6.2L, Neutrophils (%) (Auto) , Lymphocytes (%) (Auto) , Monocytes (%) (Auto) , Eosinophils (%) (Auto) , Basophils (%) (Auto) , Differential Total Cells Counted 100, Neutrophils % ( Manual) 93H, Lymphocytes % (Manual) 3L, Monocytes % (Manual) 3, Eosinophils % ( Manual) 0, Basophils % (Manual) 0, Band Neutrophils 1, Platelet Estimate Adequate, Platelet Morphology Normal, Hypochromasia 1+, Anisocytosis 1+, Sodium Level 145, Potassium Level 3.3L, Chloride Level 111H, Carbon Dioxide Level 25, Anion Gap 9, Blood Urea Nitrogen 28H, Creatinine 1.5H, Estimat Glomerular Filtration Rate 46.5, Glucose Level 74, Calcium Level 8.4L Height (Feet): 6 Height (Inches): 1.00 Weight (Pounds): 146 General Appearance: no apparent distress, confused, agitated Neck: supple Cardiovascular: normal rate Respiratory/Chest: lungs clear Abdomen: normal bowel sounds, non tender, soft Edema: no edema noted Generalized Neurologic: head control clerk II-XII grossly normal, alert, responsive, disoriented DOLORES GARCIA Apr 12, 2017 15:57
[2017-04-12 16:00] VITALS: BP 135/86
--- NOTE | 2017-04-12 16:26 | Diagnostic Imaging Report ---
Indication: Altered mental status Technique: sagittal T1 fast spin echo, axial T1 FLAIR, axial T2 FLAIR, axial T2 FS PROPELLER, axial T2* GRE, axial diffusion weighted images. ADC and exponential ADC maps generated Comparison: Brain CT 04/10/2017 Findings: Small focus of restricted diffusion is seen in the left posterior parietal deep white matter. No definite associated abnormal T2 signal. There is questionably a tiny focus posterior to this of the toth-white junction. No other foci restricted diffusion to suggest acute infarction. No acute hemorrhage or edema. There is a focus of susceptibility artifact in the left posterior parasagittal parietal lobe, consistent with an old bleed. Only minimal adjacent T2 abnormality seen on the T2-weighted images and equivocal subtle attenuation abnormalities seen in this area on the prior CT scan. There is an area of encephalomalacia of the right occipital lobe, also described on recent CT, which likewise contains some areas of susceptibility artifact consistent with prior hemorrhage. No mass effect nor midline shift. There is age-related enlargement of the ventricles and extra-axial CSF spaces. There are bilateral deep white matter right T2 foci, consistent with chronic ischemic changes. Larger foci in the right anterior frontal and left anterior parietal lobes may indicate old deep white matter infarcts There is right maxillary and left sphenoid sinus disease. The orbits demonstrate evidence of likely prior cataract surgery. The vascular flow voids are preserved. Impression: Small focus of restricted diffusion in the left parietal deep white matter, consistent with a small deep white matter lacunar infarct. Equivocal second tiny focus seen posterior to this Negative for acute intracranial bleed or mass effect Areas of old hemorrhage is in the left posterior parietal and right occipital lobe, both corresponding to areas of encephalomalacia Age-related volume loss Chronic periventricular deep white matter ischemic changes and possible old deep white matter lacunar infarcts Sinus disease Critical value findings phoned to Dr. Barreto at the time of interpretation
[2017-04-12 20:00] VITALS: BP 152/71
--- NOTE | 2017-04-12 20:45 | Electroencephalogram ---
DATE OF PROCEDURE: 04/10/2017 ELECTROENCEPHALOGRAPHY REPORT REQUESTING PHYSICIAN: Nicolle Guerra M.D. READING PHYSICIAN: Rudy Vasquez M.D. HISTORY: This is a 66-year-old male with a history of seizure disorder, now presenting with continuous changes in mental status. EEG was requested to assess ongoing seizure event. The patient's treatment now include Keppra. His head CT revealed old left anterior parietal and right occipital encephalomalacia. During the recording, the patient described as being predominantly asleep or drowsy and poorly cooperative. Brief epochs of awakening, low to medium voltage, 6 to 8 cycles per second activities were noted. Throughout the recording, periodic every 1 to 3 seconds high voltage sharply contoured slow wave or sharp and slow wave transients noted predominantly in the right temporal parietal area with occasional generalization. No external evidence of seizure activity noted. IMPRESSION: Abnormal EEG in presence of mild diffuse slowing with evidence of epileptiform activity emanating from right temporoparietal area. COMMENT: Above abnormality indicate a mild global cerebral dysfunction with lateralizing epileptiform activity, emanating in the right temporal parietal area suggestive of underlying structural lesion, high risk of seizure transformation exist. Clinical correlation is necessary. Rudy Vasquez M.D. DR: KAREN JOB#: [id number] CC:
--- NOTE | 2017-04-12 21:45 | Progress Note ---
DATE: 04/12/2017 SUBJECTIVE: The patient still has episodes of agitation. The patient is being calm and currently lethargic. Not able to be engaged during the evaluation. MENTAL STATUS EXAMINATION: The patient is confused. Mood is neutral. Affect is flat. Congruent with mood. Thought process is concrete. Thought content, no suicidal or homicidal ideations. ASSESSMENT: Encephalopathy. PLAN: 1. We will continue the olanzapine 10 mg at bedtime. 2. We will start the patient on Depakote. 3. We will continue to follow and readjust the medications. Fiordaliza Koehler M.D. DR: DOMO JOB#: [id number] CC:
[2017-04-13] VITALS (7 sets, daily range): BP systolic 138–154; BP diastolic 66–82
[2017-04-13] MEDS: Meropenem 500 MG in NS 55 ML IVPB SCH ×3 (02:01→17:13)
[2017-04-13] MEDS ORDERED: Haloperidol 5mg/ml Inj IM ONE (06:15)
[2017-04-13] MEDS ORDERED: LORazepam Inj 2mg/ml 1ml IM ONE (06:15)
[2017-04-13] MEDS ORDERED: DiphenhydrAMINE 50mg/ml Inj IM ONE ×2 (06:15→08:30)
[2017-04-13 07:55] LABS: HEMOGLOBIN 11.7 G/DL (14.2-18.0); MEAN CORPUSCULAR VOLUME 94 FL (80-99); PLATELET COUNT 197 K/UL (150-450); RED BLOOD COUNT 3.73 M/UL (4.70-6.10); WHITE BLOOD COUNT 11.6 K/UL (4.8-10.8)
[2017-04-13 08:21] LABS: ALANINE AMINOTRANSFERASE 24 U/L (12-78); ALBUMIN 2.7 G/DL (3.4-5.0); ALBUMIN/GLOBULIN RATIO 0.8 (1.0-2.7); ALKALINE PHOSPHATASE 80 U/L (46-116); ANION GAP 7 mmol/L (5-15); ASPARTATE AMINO TRANSFERASE 43 U/L (15-37); BILIRUBIN,TOTAL 0.6 MG/DL (0.2-1.0); BLOOD UREA NITROGEN 20 mg/dL (7-18); CALCIUM 8.5 MG/DL (8.5-10.1); CARBON DIOXIDE 28 MMOL/L (21-32); CHLORIDE 111 MMOL/L (98-107); CREATININE 1.3 MG/DL (0.55-1.30); POTASSIUM 3.5 MMOL/L (3.5-5.1); SODIUM 146 MMOL/L (136-145)
[2017-04-13] MEDS: Valproate Sodium INJ 500 MG in D5W 55 ML IVPB SCH ×2 (08:47→21:21)
[2017-04-13] MEDS: levETIRAcetam 1,500 MG in D5W 95 ML IV SCH ×2 (08:47→21:21)
--- NOTE | 2017-04-13 10:27 | Infectious Diseases Prog Note ---
Assessment/Plan Assessment/Plan antibiotics : meropenem - 04.12.17 - A 1. e.coli UTI on meropenem day 2 2. leucocytosis improving 3. renal failure improving 4. HTN 5. seizures P 1. continue meropenem 2. will follow up cultures Subjective ROS Limited/Unobtainable: Yes Allergies: Coded Allergies: No Known Allergies (Unverified , 04/10/17) Objective Vital Signs Last 24 Hour Vital Signs Date Time Temp Pulse Resp B/P (MAP) Pulse Ox O2 Delivery O2 Flow Rate FiO2 04/13/17 08:14 97.9 81 21 154/67 96 04/13/17 08:00 92 04/13/17 04:00 99 04/13/17 04:00 97.3 80 20 149/72 96 Room Air 04/13/17 00:00 79 04/13/17 00:00 97.9 79 20 149/78 95 Room Air 04/12/17 20:00 75 04/12/17 20:00 97.3 69 20 152/71 96 Room Air 04/12/17 16:00 97.7 75 20 135/86 95 04/12/17 16:00 67 04/12/17 12:00 97.5 70 20 140/91 95 04/12/17 12:00 64 Height (Feet): 6 Height (Inches): 1.00 Weight (Pounds): 146 Respiratory/Chest: lungs clear Cardiovascular: normal rate, regular rhythm, no gallop/murmur Abdomen: soft, non tender Extremities: no edema Laboratory Tests Test 04/13/17 06:35 White Blood Count 11.6 K/UL (4.8-10.8) H Red Blood Count 3.73 M/UL (4.70-6.10) L Hemoglobin 11.7 G/DL (14.2-18.0) L Hematocrit 35.0 % (42.0-52.0) L Mean Corpuscular Volume 94 FL (80-99) Mean Corpuscular Hemoglobin 31.4 PG (27.0-31.0) H Mean Corpuscular Hemoglobin Concent 33.5 G/DL (32.0-36.0) Red Cell Distribution Width 16.0 % (11.6-14.8) H Platelet Count 197 K/UL (150-450) Mean Platelet Volume 5.7 FL (6.5-10.1) L Neutrophils (%) (Auto) % (45.0-75.0) Lymphocytes (%) (Auto) % (20.0-45.0) Monocytes (%) (Auto) % (1.0-10.0) Eosinophils (%) (Auto) % (0.0-3.0) Basophils (%) (Auto) % (0.0-2.0) Differential Total Cells Counted 100 Neutrophils % (Manual) 85 % (45-75) H Lymphocytes % (Manual) 3 % (20-45) L Monocytes % (Manual) 6 % (1-10) Eosinophils % (Manual) 0 % (0-3) Basophils % (Manual) 0 % (0-2) Band Neutrophils 6 % (0-8) Platelet Estimate Adequate Platelet Morphology Normal Hypochromasia 1+ Anisocytosis 1+ Sodium Level 146 MMOL/L (136-145) H Potassium Level 3.5 MMOL/L (3.5-5.1) Chloride Level 111 MMOL/L (98-107) H Carbon Dioxide Level 28 MMOL/L (21-32) Anion Gap 7 mmol/L (5-15) Blood Urea Nitrogen 20 mg/dL (7-18) H Creatinine 1.3 MG/DL (0.55-1.30) Estimat Glomerular Filtration Rate 54.9 mL/min (>60) Glucose Level 81 MG/DL (74-106) Calcium Level 8.5 MG/DL (8.5-10.1) Total Bilirubin 0.6 MG/DL (0.2-1.0) Aspartate Amino Transf (AST/SGOT) 43 U/L (15-37) H Alanine Aminotransferase (ALT/SGPT) 24 U/L (12-78) Alkaline Phosphatase 80 U/L (46-116) Total Protein 6.3 G/DL (6.4-8.2) L Albumin 2.7 G/DL (3.4-5.0) L Globulin 3.6 g/dL Albumin/Globulin Ratio 0.8 (1.0-2.7) L Thyroid Stimulating Hormone (TSH) 1.420 uiU/mL (0.358-3.740) TYESHA FLOOD Apr 13, 2017 10:27
[2017-04-13] MEDS ORDERED: Tubing IV Secondary IV ONE ×3 (16:04→16:22)
[2017-04-13] MEDS ORDERED: 1/2 NS 1000ml IV ONE ×2 (16:04→16:22)
--- NOTE | 2017-04-13 16:42 | Pulmonology Progress Note ---
Assessment/Plan Assessment/Plan Assessment/Plan confused MRI with deep white matter lacuar infarct seizure disorder anti epliptic per neurologist uti e coli sepsis nebs and suction medication for agitation start clears ST eval fu with neuro recs cont abx Subjective ROS Limited/Unobtainable: Yes Constitutional: Reports: fever Allergies: Coded Allergies: No Known Allergies (Unverified , 04/10/17) Subjective sleeping agitated at times positive cough no reports of cp nv or bleeding nonmabulation Objective Last 24 Hour Vital Signs Date Time Temp Pulse Resp B/P (MAP) Pulse Ox O2 Delivery O2 Flow Rate FiO2 04/13/17 16:11 98.0 69 20 140/69 96 Room Air 04/13/17 16:00 96.8 89 19 138/82 95 Room Air 04/13/17 12:04 97.8 65 20 141/66 95 Room Air 04/13/17 12:00 62 04/13/17 08:14 97.9 81 21 154/67 96 04/13/17 08:00 92 04/13/17 04:00 99 04/13/17 04:00 97.3 80 20 149/72 96 Room Air 04/13/17 00:00 79 04/13/17 00:00 97.9 79 20 149/78 95 Room Air 04/12/17 20:00 75 04/12/17 20:00 97.3 69 20 152/71 96 Room Air Intake and Output 04/13/17 04/14/17 19:00 07:00 Intake Total 1035 ml Output Total 300 ml Balance 735 ml Intake Oral 360 ml IV Total 675 ml Output Urine Total 300 ml # Voids 1 General Appearance: cachetic HEENT: atraumatic, anicteric Respiratory/Chest: rhonchi Abdomen: soft, non tender, no organomegaly Skin: lesions Neurologic/Psychiatric: disoriented Lymphatic: no neck adenopathy, no groin adenopathy Laboratory Tests 04/13/17 06:35: White Blood Count 11.6H, Red Blood Count 3.73L, Hemoglobin 11.7L, Hematocrit 35.0L, Mean Corpuscular Volume 94, Mean Corpuscular Hemoglobin 31.4H, Mean Corpuscular Hemoglobin Concent 33.5, Red Cell Distribution Width 16.0H, Platelet Count 197, Mean Platelet Volume 5.7L, Neutrophils (%) (Auto) , Lymphocytes (%) (Auto) , Monocytes (%) (Auto) , Eosinophils (%) (Auto) , Basophils (%) (Auto) , Differential Total Cells Counted 100, Neutrophils % ( Manual) 85H, Lymphocytes % (Manual) 3L, Monocytes % (Manual) 6, Eosinophils % ( Manual) 0, Basophils % (Manual) 0, Band Neutrophils 6, Platelet Estimate Adequate, Platelet Morphology Normal, Hypochromasia 1+, Anisocytosis 1+, Sodium Level 146H, Potassium Level 3.5, Chloride Level 111H, Carbon Dioxide Level 28, Anion Gap 7, Blood Urea Nitrogen 20H, Creatinine 1.3, Estimat Glomerular Filtration Rate 54.9, Glucose Level 81, Calcium Level 8.5, Total Bilirubin 0.6, Aspartate Amino Transf (AST/SGOT) 43H, Alanine Aminotransferase (ALT/SGPT) 24, Alkaline Phosphatase 80, Total Protein 6.3L, Albumin 2.7L, Globulin 3.6, Albumin /Globulin Ratio 0.8L, Thyroid Stimulating Hormone (TSH) 1.420 Current Medications Medications (Trade) Dose Ordered Sig/Miguel Angel Route PRN Reason Start Time Stop Time Status Last Admin Dose Admin Acetaminophen (Tylenol) 650 mg Q4H PRN ORAL Mild Pain/Temp > 100.5 04/11/17 01:45 05/10/17 13:44 Chlorpromazine (Thorazine) 50 mg Q5H PRN IM Agitation 04/13/17 15:15 05/13/17 15:14 Levetiracetam 1500 mg/Dextrose 110 ml @ 440 mls/hr Q12HR IV 04/11/17 10:00 05/10/17 09:59 04/13/17 08:47 Meropenem 500 mg/ Sodium Chloride 55 ml @ 110 mls/hr Q8H IVPB 04/12/17 10:00 04/17/17 09:59 04/13/17 10:31 Olanzapine (ZyPREXA) 10 mg BEDTIME ORAL 04/12/17 21:00 05/12/17 20:59 04/12/17 21:09 Sodium Chloride 1,000 ml @ 70 mls/hr [id number] IV 04/11/17 00:00 05/10/17 06:14 04/13/17 08:47 Valproate Sodium 500 mg/Dextrose 60 ml @ 60 mls/hr Q12HR IVPB 04/12/17 14:00 05/12/17 13:59 04/13/17 08:47 TOMASZ YUSUF DO Apr 13, 2017 16:42
[2017-04-14] VITALS: BP 150/82
[2017-04-14] MEDS: Meropenem 500 MG in NS 55 ML IVPB SCH ×3 (02:49→17:46)
[2017-04-14 04:00] VITALS: BP 140/82
[2017-04-14 08:00] VITALS: BP 149/63
--- NOTE | 2017-04-14 09:30 | Pulmonology Progress Note ---
Assessment/Plan Assessment/Plan Assessment/Plan confused MRI with deep white matter lacuar infarct seizure disorder uti e coli sepsis nebs and suction medication for agitation anti epliptic per neurologist start clears if awake only, fu with ST eval fu with neuro recs cont abx Subjective ROS Limited/Unobtainable: Yes Allergies: Coded Allergies: No Known Allergies (Unverified , 04/10/17) Subjective sleeping agitated at times positive cough no reports of cp nv or bleeding nonambulation 1:1 sitter present Objective Last 24 Hour Vital Signs Date Time Temp Pulse Resp B/P (MAP) Pulse Ox O2 Delivery O2 Flow Rate FiO2 04/14/17 08:00 96.3 80 22 149/63 98 Room Air 04/14/17 04:00 122 04/14/17 04:00 97.2 69 20 140/82 97 Room Air 04/14/17 00:00 97.0 74 20 150/82 97 Room Air 04/14/17 00:00 63 04/13/17 20:00 62 04/13/17 20:00 98.6 70 20 139/69 97 Room Air 04/13/17 16:11 98.0 69 20 140/69 96 Room Air 04/13/17 16:00 62 04/13/17 16:00 96.8 89 19 138/82 95 Room Air 04/13/17 12:04 97.8 65 20 141/66 95 Room Air 04/13/17 12:00 62 General Appearance: cachetic HEENT: atraumatic, anicteric Respiratory/Chest: rhonchi Cardiovascular: normal rate, regular rhythm Abdomen: soft, non tender, no organomegaly Extremities: no edema Neurologic/Psychiatric: disoriented, unresponsiveness Current Medications Medications (Trade) Dose Ordered Sig/Miguel Angel Route PRN Reason Start Time Stop Time Status Last Admin Dose Admin Acetaminophen (Tylenol) 650 mg Q4H PRN ORAL Mild Pain/Temp > 100.5 04/11/17 01:45 05/10/17 13:44 Chlorpromazine (Thorazine) 75 mg Q5H PRN IM Agitation 04/14/17 09:00 05/14/17 08:59 Levetiracetam 1500 mg/Dextrose 110 ml @ 440 mls/hr Q12HR IV 04/11/17 10:00 05/10/17 09:59 04/13/17 21:21 Meropenem 500 mg/ Sodium Chloride 55 ml @ 110 mls/hr Q8H IVPB 04/12/17 10:00 04/17/17 09:59 04/14/17 02:49 Olanzapine (ZyPREXA) 10 mg BEDTIME ORAL 04/12/17 21:00 05/12/17 20:59 04/13/17 21:22 Sodium Chloride 1,000 ml @ 70 mls/hr [id number] IV 04/11/17 00:00 05/10/17 06:14 04/13/17 08:47 Valproate Sodium 500 mg/Dextrose 60 ml @ 60 mls/hr Q12HR IVPB 04/12/17 14:00 05/12/17 13:59 04/13/17 21:21 TOMASZ YUSUF DO Apr 14, 2017 09:30
[2017-04-14] MEDS: levETIRAcetam 1,500 MG in D5W 95 ML IV SCH (10:19)
[2017-04-14] MEDS: Valproate Sodium INJ 500 MG in D5W 55 ML IVPB SCH (10:19)
[2017-04-14 12:04] VITALS: BP 150/62
--- NOTE | 2017-04-14 12:33 | Infectious Diseases Prog Note ---
Assessment/Plan Assessment/Plan A; UTI with ESBL E. coli AMS Encephalopathy Seizure disorder HPN P; Continue Meropenem Subjective Neurologic: Reports: confusion Allergies: Coded Allergies: No Known Allergies (Unverified , 04/10/17) Objective Vital Signs Last 24 Hour Vital Signs Date Time Temp Pulse Resp B/P (MAP) Pulse Ox O2 Delivery O2 Flow Rate FiO2 04/14/17 12:04 97.0 64 22 150/62 97 Room Air 04/14/17 08:00 96.3 80 22 149/63 98 Room Air 04/14/17 04:00 122 04/14/17 04:00 97.2 69 20 140/82 97 Room Air 04/14/17 00:00 97.0 74 20 150/82 97 Room Air 04/14/17 00:00 63 04/13/17 20:00 62 04/13/17 20:00 98.6 70 20 139/69 97 Room Air 04/13/17 16:11 98.0 69 20 140/69 96 Room Air 04/13/17 16:00 62 04/13/17 16:00 96.8 89 19 138/82 95 Room Air Height (Feet): 6 Height (Inches): 1.00 Weight (Pounds): 146 General Appearance: no acute distress HEENT: mucous membranes moist Respiratory/Chest: lungs clear Cardiovascular: normal rate Abdomen: soft, non tender Extremities: no edema Neurologic/Psychiatric: other - sleeping Current Medications Medications (Trade) Dose Ordered Sig/Miguel Angel Route PRN Reason Start Time Stop Time Status Last Admin Dose Admin Acetaminophen (Tylenol) 650 mg Q4H PRN ORAL Mild Pain/Temp > 100.5 04/11/17 01:45 05/10/17 13:44 Chlorpromazine (Thorazine) 75 mg Q5H PRN IM Agitation 04/14/17 10:00 05/14/17 09:59 04/14/17 10:19 Levetiracetam 1500 mg/Dextrose 110 ml @ 440 mls/hr Q12HR IV 04/11/17 10:00 05/10/17 09:59 04/14/17 10:19 Meropenem 500 mg/ Sodium Chloride 55 ml @ 110 mls/hr Q8H IVPB 04/12/17 10:00 04/17/17 09:59 04/14/17 11:32 Olanzapine (ZyPREXA) 10 mg BEDTIME ORAL 04/12/17 21:00 05/12/17 20:59 04/13/17 21:22 Sodium Chloride 1,000 ml @ 70 mls/hr [id number] IV 04/11/17 00:00 05/10/17 06:14 04/13/17 08:47 Valproate Sodium 500 mg/Dextrose 60 ml @ 60 mls/hr Q12HR IVPB 04/12/17 14:00 05/12/17 13:59 04/14/17 10:19 LUCRETIA MURPHY Apr 14, 2017 12:33
--- NOTE | 2017-04-14 13:52 | Neurology Progress Note ---
Interim History Interim History ROS Limited/Unobtainable: Yes Complaints: sedated Events: episodes of agitation , psychotic behavior Objective Physical Exam Last Vital Signs Date Time Temp Pulse Resp B/P (MAP) Pulse Ox O2 Delivery O2 Flow Rate FiO2 04/14/17 12:04 97.0 64 22 150/62 97 Room Air General: well developed, well nourished, no acute distress, other - asleep Head: normocophalic, atraumatic Neck: no rigidity Neurologic Exam Mental Status: other - sedated Speech: other Language: other Cranial Nerve II: no papilledema Cranial Nerves III, IV, : pupils Cranial Nerve V: masseters function normal Cranial Nerve VII: normal facial expressions Cranial Nerve VIII: no nystagmus Cranial Nerve IX: gag response Cranial Nerve XI: trapezii function normal Cranial Nerve XII: no tongue atrophy/fasciculations Motor System: no involuntary movement, no muscle wasting Sensory: other Coordination: other Deep Tendon Reflexes: 0 bicep (L), 0 bicep (R), 0 tricep (L), 0 tricep (R), 0 brachioradialis (L), 0 brachioradialis (R), 0 knee (L), 0 knee (R), 0 ankle (L) , 0 ankle (R) Reflexes: mute plantar (L), mute plantar (R) Impression/Recommendations Problems: (1) acute ischemic lacunar stroke in L MCA (2) seizure disorder, exacerbation (3) persistant unresponciveness, r/o urosepsis r/o nonconvulsive sz activity (4) UTI (urinary tract infection) (5) Bradycardia Status: progressing, not improved, unchanged Recommendations # [id number] sz activity R T/P lobe add Depakote 500mg bid ivpb [id number] per ID --- get LP MRI brain noted asa 81 NICKI CALLAHAN Apr 14, 2017 13:52
[2017-04-14 16:00] VITALS: BP 160/72
[2017-04-14 20:12] VITALS: BP 160/100
--- NOTE | 2017-04-14 22:59 | General Progress Note ---
Assessment/Plan Status: unchanged Assessment/Plan encephalopathy agitation thorazine zyprexa Subjective Date patient seen: Apr 13, 2017 Neurologic/Psychiatric: Reports: anxiety Allergies: Coded Allergies: No Known Allergies (Unverified , 04/10/17) Objective Last 24 Hour Vital Signs Date Time Temp Pulse Resp B/P (MAP) Pulse Ox O2 Delivery O2 Flow Rate FiO2 04/14/17 20:12 96.8 77 20 160/100 96 Room Air 04/14/17 16:00 96.8 71 20 160/72 96 Room Air 04/14/17 16:00 68 04/14/17 12:04 97.0 64 22 150/62 97 Room Air 04/14/17 12:00 69 04/14/17 08:00 76 04/14/17 08:00 96.3 80 22 149/63 98 Room Air 04/14/17 04:00 122 04/14/17 04:00 97.2 69 20 140/82 97 Room Air 04/14/17 00:00 97.0 74 20 150/82 97 Room Air 04/14/17 00:00 63 Intake and Output 04/14/17 04/15/17 19:00 07:00 Intake Total 1165 ml Output Total 550 ml Balance 615 ml Intake Oral 240 ml IV Total 925 ml Output Urine Total 550 ml Height (Feet): 6 Height (Inches): 1.00 Weight (Pounds): 146 General Appearance: WD/WN, lethargic, confused, agitated Neurologic: disoriented, depressed affect Fiordaliza Koehler M.D. Apr 14, 2017 22:59
[2017-04-15] MEDS: Valproate Sodium INJ 500 MG in D5W 55 ML IVPB SCH ×3 (00:13→21:25)
[2017-04-15] MEDS: levETIRAcetam 1,500 MG in D5W 95 ML IV SCH ×3 (00:14→21:24)
[2017-04-15 00:40] VITALS: BP 156/82
[2017-04-15] MEDS: Meropenem 500 MG in NS 55 ML IVPB SCH ×3 (02:00→17:32)
[2017-04-15 04:00] VITALS: BP 135/100
[2017-04-15 08:05] VITALS: BP 168/70
[2017-04-15] MEDS ORDERED: Aspirin Baby 81mg ORAL SCH (09:00)
[2017-04-15 09:09] LABS: ANION GAP 8 mmol/L (5-15); BLOOD UREA NITROGEN 13 mg/dL (7-18); CALCIUM 8.7 MG/DL (8.5-10.1); CARBON DIOXIDE 27 MMOL/L (21-32); CHLORIDE 108 MMOL/L (98-107); CREATININE 1.1 MG/DL (0.55-1.30); POTASSIUM 3.2 MMOL/L (3.5-5.1); SODIUM 143 MMOL/L (136-145)
[2017-04-15 09:15] LABS: BASOPHILS % (AUTO) 1.3 % (0.0-2.0); HEMATOCRIT 35.4 % (42.0-52.0); HEMOGLOBIN 11.6 G/DL (14.2-18.0); LYMPHOCYTES % (AUTO) 24.2 % (20.0-45.0); MEAN CORPUSCULAR VOLUME 92 FL (80-99); NEUTROPHILS % (AUTO) 57.5 % (45.0-75.0); PLATELET COUNT 224 K/UL (150-450); RED BLOOD COUNT 3.84 M/UL (4.70-6.10); RED CELL DISTRIBUTION WIDTH 15.3 % (11.6-14.8); WHITE BLOOD COUNT 5.8 K/UL (4.8-10.8)
[2017-04-15] MEDS ORDERED: Potassium Chloride 40 MEQ in Sodium Chloride 500ML 550 ML IVPB ONE (11:00)
[2017-04-15 12:00] VITALS: BP 163/70
--- NOTE | 2017-04-15 12:43 | General Progress Note ---
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 sepsis MRI reviewed consistent with acute infarct very agitated requiring injectable Thorazine. cont abx will likely need nursing home facility on discharge Subjective ROS Limited/Unobtainable: Yes Allergies: Coded Allergies: No Known Allergies (Unverified , 04/10/17) Objective Last 24 Hour Vital Signs Date Time Temp Pulse Resp B/P (MAP) Pulse Ox O2 Delivery O2 Flow Rate FiO2 04/15/17 08:05 96.0 80 20 168/70 95 Room Air 04/15/17 08:00 86 04/15/17 04:00 97.0 80 24 135/100 97 Room Air 04/15/17 04:00 69 04/15/17 00:40 96.8 76 20 156/82 99 Room Air 04/15/17 00:00 80 04/14/17 20:12 96.8 77 20 160/100 96 Room Air 04/14/17 20:00 79 04/14/17 16:00 96.8 71 20 160/72 96 Room Air 04/14/17 16:00 68 Intake and Output 04/15/17 04/16/17 19:00 07:00 Intake Total 240 ml Balance 240 ml Intake Oral 240 ml Laboratory Tests 04/15/17 08:30: White Blood Count 5.8, Red Blood Count 3.84L, Hemoglobin 11.6L, Hematocrit 35.4L , Mean Corpuscular Volume 92, Mean Corpuscular Hemoglobin 30.3, Mean Corpuscular Hemoglobin Concent 32.9, Red Cell Distribution Width 15.3H, Platelet Count 224, Mean Platelet Volume 6.3L, Neutrophils (%) (Auto) 57.5, Lymphocytes (%) (Auto) 24.2, Monocytes (%) (Auto) 13.0H, Eosinophils (%) (Auto) 4.0H, Basophils (%) (Auto) 1.3, Sodium Level 143, Potassium Level 3.2L, Chloride Level 108H, Carbon Dioxide Level 27, Anion Gap 8, Blood Urea Nitrogen 13, Creatinine 1.1, Estimat Glomerular Filtration Rate > 60, Glucose Level 117H , Calcium Level 8.7 Height (Feet): 6 Height (Inches): 1.00 Weight (Pounds): 146 General Appearance: no apparent distress, agitated, combative, cachetic Cardiovascular: normal rate Respiratory/Chest: lungs clear DOLORES GARCIA Apr 15, 2017 12:43
[2017-04-15] MEDS ORDERED: ZyPREXA Zydis 10mg tab ORAL SCH (13:00)
--- NOTE | 2017-04-15 13:06 | Infectious Diseases Prog Note ---
Assessment/Plan Assessment/Plan A; UTI with ESBL E. coli Acute lacunar CVA AMS Encephalopathy Seizure disorder HPN P; Continue Meropenem Subjective ROS Limited/Unobtainable: Yes Neurologic: Reports: confusion Allergies: Coded Allergies: No Known Allergies (Unverified , 04/10/17) Objective Vital Signs Last 24 Hour Vital Signs Date Time Temp Pulse Resp B/P (MAP) Pulse Ox O2 Delivery O2 Flow Rate FiO2 04/15/17 12:00 97.0 76 20 163/70 94 Room Air 04/15/17 08:05 96.0 80 20 168/70 95 Room Air 04/15/17 08:00 86 04/15/17 04:00 97.0 80 24 135/100 97 Room Air 04/15/17 04:00 69 04/15/17 00:40 96.8 76 20 156/82 99 Room Air 04/15/17 00:00 80 04/14/17 20:12 96.8 77 20 160/100 96 Room Air 04/14/17 20:00 79 04/14/17 16:00 96.8 71 20 160/72 96 Room Air 04/14/17 16:00 68 Height (Feet): 6 Height (Inches): 1.00 Weight (Pounds): 146 General Appearance: no acute distress HEENT: mucous membranes moist Respiratory/Chest: lungs clear Cardiovascular: normal rate Abdomen: soft, non tender Extremities: no edema Neurologic/Psychiatric: alert, responsive Laboratory Tests Test 04/15/17 08:30 White Blood Count 5.8 K/UL (4.8-10.8) Red Blood Count 3.84 M/UL (4.70-6.10) L Hemoglobin 11.6 G/DL (14.2-18.0) L Hematocrit 35.4 % (42.0-52.0) L Mean Corpuscular Volume 92 FL (80-99) Mean Corpuscular Hemoglobin 30.3 PG (27.0-31.0) Mean Corpuscular Hemoglobin Concent 32.9 G/DL (32.0-36.0) Red Cell Distribution Width 15.3 % (11.6-14.8) H Platelet Count 224 K/UL (150-450) Mean Platelet Volume 6.3 FL (6.5-10.1) L Neutrophils (%) (Auto) 57.5 % (45.0-75.0) Lymphocytes (%) (Auto) 24.2 % (20.0-45.0) Monocytes (%) (Auto) 13.0 % (1.0-10.0) H Eosinophils (%) (Auto) 4.0 % (0.0-3.0) H Basophils (%) (Auto) 1.3 % (0.0-2.0) Sodium Level 143 MMOL/L (136-145) Potassium Level 3.2 MMOL/L (3.5-5.1) L Chloride Level 108 MMOL/L (98-107) H Carbon Dioxide Level 27 MMOL/L (21-32) Anion Gap 8 mmol/L (5-15) Blood Urea Nitrogen 13 mg/dL (7-18) Creatinine 1.1 MG/DL (0.55-1.30) Estimat Glomerular Filtration Rate > 60 mL/min (>60) Glucose Level 117 MG/DL (74-106) H Calcium Level 8.7 MG/DL (8.5-10.1) Current Medications Medications (Trade) Dose Ordered Sig/Miguel Angel Route PRN Reason Start Time Stop Time Status Last Admin Dose Admin Acetaminophen (Tylenol) 650 mg Q4H PRN ORAL Mild Pain/Temp > 100.5 04/11/17 01:45 05/10/17 13:44 Aspirin (ASA) 81 mg DAILY ORAL 04/15/17 09:00 05/15/17 08:59 04/15/17 08:55 Levetiracetam 1500 mg/Dextrose 110 ml @ 440 mls/hr Q12HR IV 04/11/17 10:00 05/10/17 09:59 04/15/17 09:35 Meropenem 500 mg/ Sodium Chloride 55 ml @ 110 mls/hr Q8H IVPB 04/12/17 10:00 04/17/17 09:59 04/15/17 10:47 Olanzapine (ZyPREXA Zydis) 10 mg Q8HR ORAL 04/15/17 13:00 05/15/17 12:59 04/15/17 12:47 Potassium Chloride 40 meq/ Sodium Chloride 570 ml @ 142.5 mls/ hr ONCE ONCE IVPB 04/15/17 11:00 04/15/17 14:59 04/15/17 10:54 Potassium Chloride (K-Dur) 20 meq TWICE A DAY ORAL 04/15/17 12:45 05/15/17 12:44 04/15/17 13:01 Sodium Chloride 1,000 ml @ 70 mls/hr [id number] IV 04/11/17 00:00 05/10/17 06:14 04/14/17 13:18 Valproate Sodium 500 mg/Dextrose 60 ml @ 60 mls/hr Q12HR IVPB 04/12/17 14:00 05/12/17 13:59 04/15/17 09:36 LUCRETIA MURPHY Apr 15, 2017 13:06
--- NOTE | 2017-04-15 13:45 | Diagnostic Imaging Report ---
Indication: Cough Comparison: 04/10/2017 A single view chest radiograph was obtained. Findings: New patchy density at the left lung base demonstrated. Heart size remains enlarged slightly. Pulmonary vascularity is normal. IMPRESSION: New infiltrate versus atelectasis left lung base. Please correlate clinically. Follow-up recommended
[2017-04-15 16:00] VITALS: BP 159/92
[2017-04-15 20:12] VITALS: BP 165/82
[2017-04-15] MEDS: ZyPREXA Zydis 10mg tab ORAL SCH ×2 (22:00→23:06)
--- NOTE | 2017-04-15 22:53 | General Progress Note ---
Assessment/Plan Status: not improved, unchanged Assessment/Plan encephalopathy agitation dc thorazine zyprexa Subjective Date patient seen: Apr 15, 2017 Neurologic/Psychiatric: Reports: anxiety Allergies: Coded Allergies: No Known Allergies (Unverified , 04/10/17) Subjective severe agitation, not controlled with thorazine. changed to zyprexa standing the pt is not taking meds Objective Last 24 Hour Vital Signs Date Time Temp Pulse Resp B/P (MAP) Pulse Ox O2 Delivery O2 Flow Rate FiO2 04/15/17 20:12 98.1 82 20 165/82 100 Room Air 04/15/17 16:00 98.2 76 20 159/92 100 Room Air 04/15/17 12:00 97.0 76 20 163/70 94 Room Air 04/15/17 12:00 69 04/15/17 08:05 96.0 80 20 168/70 95 Room Air 04/15/17 08:00 86 04/15/17 04:00 97.0 80 24 135/100 97 Room Air 04/15/17 04:00 69 04/15/17 00:40 96.8 76 20 156/82 99 Room Air 04/15/17 00:00 80 Intake and Output 04/15/17 04/16/17 19:00 07:00 Intake Total 722.5 ml Output Total 650 ml Balance 72.5 ml Intake Oral 240 ml IV Total 482.5 ml Output Urine Total 650 ml Laboratory Tests 04/15/17 08:30: White Blood Count 5.8, Red Blood Count 3.84L, Hemoglobin 11.6L, Hematocrit 35.4L , Mean Corpuscular Volume 92, Mean Corpuscular Hemoglobin 30.3, Mean Corpuscular Hemoglobin Concent 32.9, Red Cell Distribution Width 15.3H, Platelet Count 224, Mean Platelet Volume 6.3L, Neutrophils (%) (Auto) 57.5, Lymphocytes (%) (Auto) 24.2, Monocytes (%) (Auto) 13.0H, Eosinophils (%) (Auto) 4.0H, Basophils (%) (Auto) 1.3, Sodium Level 143, Potassium Level 3.2L, Chloride Level 108H, Carbon Dioxide Level 27, Anion Gap 8, Blood Urea Nitrogen 13, Creatinine 1.1, Estimat Glomerular Filtration Rate > 60, Glucose Level 117H , Calcium Level 8.7 Height (Feet): 6 Height (Inches): 1.00 Weight (Pounds): 146 General Appearance: lethargic, confused, agitated Neurologic: disoriented, depressed affect Fiordaliza Koehler M.D. Apr 15, 2017 22:53
--- NOTE | 2017-04-15 22:55 | Geriatric Progress Note ---
Assessment/Plan Assessment/Plan encephalopathy stroke uti -zyprexa -ativan Discussed with: patient Subjective Interval Events 04/14/17 the pt cont to be agitated and confused Mood/Memory: Reports: prior hx, anxiety Geriatric Geriatric Last 24 Hour Vital Signs Date Time Temp Pulse Resp B/P (MAP) Pulse Ox O2 Delivery O2 Flow Rate FiO2 04/15/17 20:12 98.1 82 20 165/82 100 Room Air 04/15/17 16:00 98.2 76 20 159/92 100 Room Air 04/15/17 12:00 97.0 76 20 163/70 94 Room Air 04/15/17 12:00 69 04/15/17 08:05 96.0 80 20 168/70 95 Room Air 04/15/17 08:00 86 04/15/17 04:00 97.0 80 24 135/100 97 Room Air 04/15/17 04:00 69 04/15/17 00:40 96.8 76 20 156/82 99 Room Air 04/15/17 00:00 80 Intake and Output 04/15/17 04/16/17 19:00 07:00 Intake Total 722.5 ml Output Total 650 ml Balance 72.5 ml Intake Oral 240 ml IV Total 482.5 ml Output Urine Total 650 ml Laboratory Tests Test 04/15/17 08:30 White Blood Count 5.8 K/UL (4.8-10.8) Red Blood Count 3.84 M/UL (4.70-6.10) L Hemoglobin 11.6 G/DL (14.2-18.0) L Hematocrit 35.4 % (42.0-52.0) L Mean Corpuscular Volume 92 FL (80-99) Mean Corpuscular Hemoglobin 30.3 PG (27.0-31.0) Mean Corpuscular Hemoglobin Concent 32.9 G/DL (32.0-36.0) Red Cell Distribution Width 15.3 % (11.6-14.8) H Platelet Count 224 K/UL (150-450) Mean Platelet Volume 6.3 FL (6.5-10.1) L Neutrophils (%) (Auto) 57.5 % (45.0-75.0) Lymphocytes (%) (Auto) 24.2 % (20.0-45.0) Monocytes (%) (Auto) 13.0 % (1.0-10.0) H Eosinophils (%) (Auto) 4.0 % (0.0-3.0) H Basophils (%) (Auto) 1.3 % (0.0-2.0) Sodium Level 143 MMOL/L (136-145) Potassium Level 3.2 MMOL/L (3.5-5.1) L Chloride Level 108 MMOL/L (98-107) H Carbon Dioxide Level 27 MMOL/L (21-32) Anion Gap 8 mmol/L (5-15) Blood Urea Nitrogen 13 mg/dL (7-18) Creatinine 1.1 MG/DL (0.55-1.30) Estimat Glomerular Filtration Rate > 60 mL/min (>60) Glucose Level 117 MG/DL (74-106) H Calcium Level 8.7 MG/DL (8.5-10.1) Current Medications Medications (Trade) Dose Ordered Sig/Miguel Angel Route PRN Reason Start Time Stop Time Status Last Admin Dose Admin Acetaminophen (Tylenol) 650 mg Q4H PRN ORAL Mild Pain/Temp > 100.5 04/15/17 17:45 05/10/17 13:44 Aspirin (ASA) 81 mg DAILY ORAL 04/16/17 09:00 05/15/17 08:59 Levetiracetam 1500 mg/Dextrose 110 ml @ 440 mls/hr Q12HR IV 04/15/17 21:00 05/10/17 09:59 04/15/17 21:24 Meropenem 500 mg/ Sodium Chloride 55 ml @ 110 mls/hr Q8H IVPB 04/15/17 18:00 04/17/17 09:59 04/15/17 17:32 Olanzapine (ZyPREXA Zydis) 10 mg Q8HR ORAL 04/15/17 22:00 05/15/17 12:59 Potassium Chloride (K-Dur) 20 meq TWICE A DAY ORAL 04/15/17 18:00 05/15/17 12:44 04/15/17 17:33 Sodium Chloride 1,000 ml @ 70 mls/hr [id number] IV 04/15/17 16:30 05/10/17 06:14 04/15/17 17:30 Valproate Sodium 500 mg/Dextrose 60 ml @ 60 mls/hr Q12HR IVPB 04/15/17 21:00 05/12/17 13:59 04/15/17 21:25 Height (Feet): 6 Height (Inches): 1.00 Weight (Pounds): 146 Psychiatric Behavior: uncooperative, psychomotor agitation Orientation: disoriented Fiordaliza Koehler M.D. Apr 15, 2017 22:55
[2017-04-16] VITALS (7 sets, daily range): BP systolic 134–155; BP diastolic 59–85
[2017-04-16] MEDS: Meropenem 500 MG in NS 55 ML IVPB SCH ×3 (02:23→18:37)
[2017-04-16] MEDS: ZyPREXA Zydis 10mg tab ORAL SCH ×3 (05:52→21:56)
[2017-04-16 07:04] LABS: BASOPHILS % (AUTO) 1.1 % (0.0-2.0); EOSINOPHILS % (AUTO) 3.2 % (0.0-3.0); HEMOGLOBIN 10.6 G/DL (14.2-18.0); LYMPHOCYTES % (AUTO) 22.9 % (20.0-45.0); MEAN CORPUSCULAR VOLUME 92 FL (80-99); MONOCYTES % (AUTO) 13.6 % (1.0-10.0); NEUTROPHILS % (AUTO) 59.3 % (45.0-75.0); PLATELET COUNT 208 K/UL (150-450); RED BLOOD COUNT 3.47 M/UL (4.70-6.10); RED CELL DISTRIBUTION WIDTH 15.5 % (11.6-14.8); WHITE BLOOD COUNT 5.8 K/UL (4.8-10.8)
[2017-04-16 07:20] LABS: ALANINE AMINOTRANSFERASE 28 U/L (12-78); ALBUMIN 2.5 G/DL (3.4-5.0); ALBUMIN/GLOBULIN RATIO 0.8 (1.0-2.7); ALKALINE PHOSPHATASE 60 U/L (46-116); ANION GAP 6 mmol/L (5-15); ASPARTATE AMINO TRANSFERASE 63 U/L (15-37); BILIRUBIN,TOTAL 0.6 MG/DL (0.2-1.0); BLOOD UREA NITROGEN 10 mg/dL (7-18); CALCIUM 8.2 MG/DL (8.5-10.1); CARBON DIOXIDE 27 MMOL/L (21-32); CHLORIDE 111 MMOL/L (98-107); POTASSIUM 3.3 MMOL/L (3.5-5.1); SODIUM 144 MMOL/L (136-145)
[2017-04-16] MEDS: levETIRAcetam 1,500 MG in D5W 95 ML IV SCH ×2 (08:50→21:55)
[2017-04-16] MEDS: Aspirin Baby 81mg ORAL SCH (09:00)
[2017-04-16] MEDS: Valproate Sodium INJ 500 MG in D5W 55 ML IVPB SCH ×2 (09:27→21:55)
--- NOTE | 2017-04-16 11:28 | Infectious Diseases Prog Note ---
Assessment/Plan Assessment/Plan A; UTI with ESBL E. coli Acute lacunar CVA AMS Encephalopathy Seizure disorder HPN P; Continue Meropenem until tomorrow Subjective ROS Limited/Unobtainable: Yes Allergies: Coded Allergies: No Known Allergies (Unverified , 04/10/17) Objective Vital Signs Last 24 Hour Vital Signs Date Time Temp Pulse Resp B/P (MAP) Pulse Ox O2 Delivery O2 Flow Rate FiO2 04/16/17 07:48 97.1 70 20 138/59 95 Room Air 04/16/17 05:01 96.5 72 20 143/78 100 Room Air 04/16/17 04:00 Room Air 04/16/17 04:00 97.2 72 20 143/78 100 Room Air 04/16/17 00:26 97.2 75 20 155/73 98 Room Air 04/16/17 00:00 Room Air 04/15/17 20:12 98.1 82 20 165/82 100 Room Air 04/15/17 20:00 Room Air 04/15/17 16:00 98.2 76 20 159/92 100 Room Air 04/15/17 12:00 97.0 76 20 163/70 94 Room Air 04/15/17 12:00 69 Height (Feet): 6 Height (Inches): 1.00 Weight (Pounds): 146 General Appearance: no acute distress HEENT: mucous membranes moist Respiratory/Chest: lungs clear Cardiovascular: normal rate Abdomen: soft, non tender Extremities: no edema Neurologic/Psychiatric: other - sleeping Laboratory Tests Test 04/16/17 05:30 White Blood Count 5.8 K/UL (4.8-10.8) Red Blood Count 3.47 M/UL (4.70-6.10) L Hemoglobin 10.6 G/DL (14.2-18.0) L Hematocrit 32.0 % (42.0-52.0) L Mean Corpuscular Volume 92 FL (80-99) Mean Corpuscular Hemoglobin 30.5 PG (27.0-31.0) Mean Corpuscular Hemoglobin Concent 33.0 G/DL (32.0-36.0) Red Cell Distribution Width 15.5 % (11.6-14.8) H Platelet Count 208 K/UL (150-450) Mean Platelet Volume 6.2 FL (6.5-10.1) L Neutrophils (%) (Auto) 59.3 % (45.0-75.0) Lymphocytes (%) (Auto) 22.9 % (20.0-45.0) Monocytes (%) (Auto) 13.6 % (1.0-10.0) H Eosinophils (%) (Auto) 3.2 % (0.0-3.0) H Basophils (%) (Auto) 1.1 % (0.0-2.0) Sodium Level 144 MMOL/L (136-145) Potassium Level 3.3 MMOL/L (3.5-5.1) L Chloride Level 111 MMOL/L (98-107) H Carbon Dioxide Level 27 MMOL/L (21-32) Anion Gap 6 mmol/L (5-15) Blood Urea Nitrogen 10 mg/dL (7-18) Creatinine 1.0 MG/DL (0.55-1.30) Estimat Glomerular Filtration Rate > 60 mL/min (>60) Glucose Level 86 MG/DL (74-106) Calcium Level 8.2 MG/DL (8.5-10.1) L Total Bilirubin 0.6 MG/DL (0.2-1.0) Aspartate Amino Transf (AST/SGOT) 63 U/L (15-37) H Alanine Aminotransferase (ALT/SGPT) 28 U/L (12-78) Alkaline Phosphatase 60 U/L (46-116) Total Protein 5.6 G/DL (6.4-8.2) L Albumin 2.5 G/DL (3.4-5.0) L Globulin 3.1 g/dL Albumin/Globulin Ratio 0.8 (1.0-2.7) L Current Medications Medications (Trade) Dose Ordered Sig/Miguel Angel Route PRN Reason Start Time Stop Time Status Last Admin Dose Admin Acetaminophen (Tylenol) 650 mg Q4H PRN ORAL Mild Pain/Temp > 100.5 04/15/17 17:45 05/10/17 13:44 Aspirin (ASA) 81 mg DAILY ORAL 04/16/17 09:00 05/15/17 08:59 Levetiracetam 1500 mg/Dextrose 110 ml @ 440 mls/hr Q12HR IV 04/15/17 21:00 05/10/17 09:59 04/16/17 08:50 Lorazepam (Ativan) 2 mg Q6H PRN ORAL Agitation 04/15/17 23:00 04/22/17 22:59 Meropenem 500 mg/ Sodium Chloride 55 ml @ 110 mls/hr Q8H IVPB 04/15/17 18:00 04/17/17 09:59 04/16/17 11:03 Olanzapine (ZyPREXA Zydis) 10 mg Q8HR ORAL 04/15/17 22:00 05/15/17 12:59 04/16/17 05:52 Potassium Chloride 100 ml @ 100 mls/hr Q1H IVPB 04/16/17 09:30 04/16/17 11:29 Potassium Chloride (K-Dur) 20 meq TWICE A DAY ORAL 04/15/17 18:00 05/15/17 12:44 04/15/17 17:33 Sodium Chloride 1,000 ml @ 70 mls/hr [id number] IV 04/15/17 16:30 05/10/17 06:14 04/15/17 17:30 Valproate Sodium 500 mg/Dextrose 60 ml @ 60 mls/hr Q12HR IVPB 04/15/17 21:00 05/12/17 13:59 04/16/17 09:27 LUCRETIA MURPHY Apr 16, 2017 11:28
--- NOTE | 2017-04-16 12:53 | General Progress Note ---
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 cont abx not able to take PO swallow eval possible PEG Subjective ROS Limited/Unobtainable: Yes Allergies: Coded Allergies: No Known Allergies (Unverified , 04/10/17) Objective Last 24 Hour Vital Signs Date Time Temp Pulse Resp B/P (MAP) Pulse Ox O2 Delivery O2 Flow Rate FiO2 04/16/17 11:52 97.9 75 22 134/69 99 Room Air 04/16/17 07:48 97.1 70 20 138/59 95 Room Air 04/16/17 05:01 96.5 72 20 143/78 100 Room Air 04/16/17 04:00 Room Air 04/16/17 04:00 97.2 72 20 143/78 100 Room Air 04/16/17 00:26 97.2 75 20 155/73 98 Room Air 04/16/17 00:00 Room Air 04/15/17 20:12 98.1 82 20 165/82 100 Room Air 04/15/17 20:00 Room Air 04/15/17 16:00 98.2 76 20 159/92 100 Room Air Intake and Output 04/16/17 04/17/17 19:00 07:00 Intake Total 295 ml Balance 295 ml IV Total 295 ml Laboratory Tests 04/16/17 05:30: White Blood Count 5.8, Red Blood Count 3.47L, Hemoglobin 10.6L, Hematocrit 32.0L , Mean Corpuscular Volume 92, Mean Corpuscular Hemoglobin 30.5, Mean Corpuscular Hemoglobin Concent 33.0, Red Cell Distribution Width 15.5H, Platelet Count 208, Mean Platelet Volume 6.2L, Neutrophils (%) (Auto) 59.3, Lymphocytes (%) (Auto) 22.9, Monocytes (%) (Auto) 13.6H, Eosinophils (%) (Auto) 3.2H, Basophils (%) (Auto) 1.1, Sodium Level 144, Potassium Level 3.3L, Chloride Level 111H, Carbon Dioxide Level 27, Anion Gap 6, Blood Urea Nitrogen 10, Creatinine 1.0, Estimat Glomerular Filtration Rate > 60, Glucose Level 86, Calcium Level 8.2L, Total Bilirubin 0.6, Aspartate Amino Transf (AST/SGOT) 63H, Alanine Aminotransferase (ALT/SGPT) 28, Alkaline Phosphatase 60, Total Protein 5.6L, Albumin 2.5L, Globulin 3.1, Albumin/Globulin Ratio 0.8L Height (Feet): 6 Height (Inches): 1.00 Weight (Pounds): 146 General Appearance: lethargic, agitated Cardiovascular: normal rate Respiratory/Chest: lungs clear DOLORES GARCIA Apr 16, 2017 12:53
--- NOTE | 2017-04-16 23:10 | General Progress Note ---
Assessment/Plan Assessment/Plan encephalopathy agitation dc thorazine zyprexa Subjective Neurologic/Psychiatric: Reports: anxiety, depressed, emotional problems Allergies: Coded Allergies: No Known Allergies (Unverified , 04/10/17) Subjective calm during my eval. became agitated during the evening. Objective Last 24 Hour Vital Signs Date Time Temp Pulse Resp B/P (MAP) Pulse Ox O2 Delivery O2 Flow Rate FiO2 04/16/17 20:00 97.9 77 21 135/71 97 04/16/17 16:00 97.5 75 18 147/85 96 04/16/17 11:52 97.9 75 22 134/69 99 Room Air 04/16/17 07:48 97.1 70 20 138/59 95 Room Air 04/16/17 05:01 96.5 72 20 143/78 100 Room Air 04/16/17 04:00 Room Air 04/16/17 04:00 97.2 72 20 143/78 100 Room Air 04/16/17 00:26 97.2 75 20 155/73 98 Room Air 04/16/17 00:00 Room Air Intake and Output 04/16/17 04/17/17 19:00 07:00 Intake Total 1015 ml Balance 1015 ml Intake Oral 240 ml IV Total 775 ml # Voids 4 Laboratory Tests 04/16/17 05:30: White Blood Count 5.8, Red Blood Count 3.47L, Hemoglobin 10.6L, Hematocrit 32.0L , Mean Corpuscular Volume 92, Mean Corpuscular Hemoglobin 30.5, Mean Corpuscular Hemoglobin Concent 33.0, Red Cell Distribution Width 15.5H, Platelet Count 208, Mean Platelet Volume 6.2L, Neutrophils (%) (Auto) 59.3, Lymphocytes (%) (Auto) 22.9, Monocytes (%) (Auto) 13.6H, Eosinophils (%) (Auto) 3.2H, Basophils (%) (Auto) 1.1, Sodium Level 144, Potassium Level 3.3L, Chloride Level 111H, Carbon Dioxide Level 27, Anion Gap 6, Blood Urea Nitrogen 10, Creatinine 1.0, Estimat Glomerular Filtration Rate > 60, Glucose Level 86, Calcium Level 8.2L, Total Bilirubin 0.6, Aspartate Amino Transf (AST/SGOT) 63H, Alanine Aminotransferase (ALT/SGPT) 28, Alkaline Phosphatase 60, Total Protein 5.6L, Albumin 2.5L, Globulin 3.1, Albumin/Globulin Ratio 0.8L Height (Feet): 6 Height (Inches): 1.00 Weight (Pounds): 146 General Appearance: no apparent distress, lethargic, confused, agitated Fiordaliza Koehler M.D. Apr 16, 2017 23:10
[2017-04-17] VITALS: BP 127/73
[2017-04-17] MEDS: Meropenem 500 MG in NS 55 ML IVPB SCH ×2 (01:27→10:00)
[2017-04-17 04:09] VITALS: BP 131/79
[2017-04-17] MEDS: ZyPREXA Zydis 10mg tab ORAL SCH ×3 (05:32→21:23)
[2017-04-17 08:00] VITALS: BP 142/76
[2017-04-17] MEDS: Aspirin Baby 81mg ORAL SCH (08:24)
[2017-04-17] MEDS: Valproate Sodium INJ 500 MG in D5W 55 ML IVPB SCH ×2 (08:29→21:22)
[2017-04-17] MEDS: levETIRAcetam 1,500 MG in D5W 95 ML IV SCH ×2 (10:17→21:22)
--- NOTE | 2017-04-17 11:15 | Infectious Diseases Prog Note ---
Assessment/Plan Assessment/Plan A; UTI with ESBL E. coli treated Acute lacunar CVA AMS Encephalopathy Seizure disorder HPN P; discontinue Meropenem Subjective ROS Limited/Unobtainable: Yes Neurologic: Reports: confusion Allergies: Coded Allergies: No Known Allergies (Unverified , 04/10/17) Objective Vital Signs Last 24 Hour Vital Signs Date Time Temp Pulse Resp B/P (MAP) Pulse Ox O2 Delivery O2 Flow Rate FiO2 04/17/17 08:00 98.2 76 20 142/76 98 04/17/17 04:09 97.7 79 20 131/79 97 Room Air 04/17/17 04:00 Room Air 04/17/17 00:00 Room Air 04/17/17 00:00 97.6 82 21 127/73 98 04/16/17 20:00 Room Air 04/16/17 20:00 97.9 77 21 135/71 97 04/16/17 16:00 97.5 75 18 147/85 96 04/16/17 11:52 97.9 75 22 134/69 99 Room Air Height (Feet): 6 Height (Inches): 1.00 Weight (Pounds): 146 General Appearance: no acute distress HEENT: mucous membranes moist Respiratory/Chest: lungs clear Cardiovascular: normal rate Abdomen: soft, non tender Extremities: no edema Neurologic/Psychiatric: alert, disoriented Current Medications Medications (Trade) Dose Ordered Sig/Miguel Angel Route PRN Reason Start Time Stop Time Status Last Admin Dose Admin Acetaminophen (Tylenol) 650 mg Q4H PRN ORAL Mild Pain/Temp > 100.5 04/15/17 17:45 05/10/17 13:44 Aspirin (ASA) 81 mg DAILY ORAL 04/16/17 09:00 05/15/17 08:59 04/17/17 08:24 Levetiracetam 1500 mg/Dextrose 110 ml @ 440 mls/hr Q12HR IV 04/15/17 21:00 05/10/17 09:59 04/17/17 10:17 Lorazepam (Ativan) 2 mg Q6H PRN ORAL Agitation 04/15/17 23:00 04/22/17 22:59 Meropenem 500 mg/ Sodium Chloride 55 ml @ 110 mls/hr Q8H IVPB 04/15/17 18:00 04/17/17 23:59 04/17/17 01:27 Olanzapine (ZyPREXA Zydis) 10 mg Q8HR ORAL 04/15/17 22:00 05/15/17 12:59 04/17/17 05:32 Sodium Chloride 1,000 ml @ 70 mls/hr [id number] IV 04/15/17 16:30 05/10/17 06:14 04/16/17 21:56 Valproate Sodium 500 mg/Dextrose 60 ml @ 60 mls/hr Q12HR IVPB 04/15/17 21:00 05/12/17 13:59 04/17/17 08:29 LUCRETIA MURPHY Apr 17, 2017 11:15
[2017-04-17 12:00] VITALS: BP 153/59
[2017-04-17] MEDS ORDERED: Tubing IV Secondary IV ONE (14:55)
[2017-04-17] MEDS ORDERED: 1/2 NS 1000ml IV ONE (14:55)
[2017-04-17 16:00] VITALS: BP 155/89
[2017-04-17] MEDS: LORazepam 1mg tab ORAL PRN (16:12)
--- NOTE | 2017-04-17 17:19 | General Progress Note ---
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 sepsis, resolved MRI w CVA Looks better, more alert and calmer discontinue abx per ID ST rec video swallow possible PEG Subjective ROS Limited/Unobtainable: Yes Allergies: Coded Allergies: No Known Allergies (Unverified , 04/10/17) Objective Last 24 Hour Vital Signs Date Time Temp Pulse Resp B/P (MAP) Pulse Ox O2 Delivery O2 Flow Rate FiO2 04/17/17 12:00 97.7 65 20 153/59 96 04/17/17 08:00 98.2 76 20 142/76 98 04/17/17 04:09 97.7 79 20 131/79 97 Room Air 04/17/17 04:00 Room Air 04/17/17 00:00 Room Air 04/17/17 00:00 97.6 82 21 127/73 98 04/16/17 20:00 Room Air 04/16/17 20:00 97.9 77 21 135/71 97 Intake and Output 04/16/17 04/17/17 19:00 07:00 Intake Total 1015 ml 475 ml Balance 1015 ml 475 ml Intake Oral 240 ml IV Total 775 ml 475 ml # Voids 4 3 Height (Feet): 6 Height (Inches): 1.00 Weight (Pounds): 146 General Appearance: no apparent distress, confused, agitated Neck: supple Cardiovascular: normal rate Respiratory/Chest: lungs clear DOLORES GARCIA Apr 17, 2017 17:19
[2017-04-17 19:27] VITALS: BP 169/90
--- NOTE | 2017-04-17 21:15 | Progress Note ---
DATE: 04/17/2017 SUBJECTIVE: The patient is much improved. Today, he opens his eyes. He was able to follow directions. Less agitated and calmer. Compliant with medications. MENTAL STATUS EXAMINATION: The patient is alert and oriented to time, self, place, and situation he is in. Mood is neutral. Affect is constricted. Congruent with mood. Thought process, there was a paucity of thought content. Thought content, no suicidal or homicidal ideations. ASSESSMENT: 1. Encephalopathy. 2. Urinary tract infection. 3. Acute stroke. PLAN: We will continue current medications. Fiordaliza Koehler M.D. DR: DOMO JOB#: [id number] CC:
[2017-04-18] VITALS (7 sets, daily range): BP systolic 148–170; BP diastolic 65–91
[2017-04-18] MEDS: ZyPREXA Zydis 10mg tab ORAL SCH ×3 (06:32→21:12)
[2017-04-18 07:13] LABS: BASOPHILS % (AUTO) 1.3 % (0.0-2.0); EOSINOPHILS % (AUTO) 3.6 % (0.0-3.0); HEMOGLOBIN 12.4 G/DL (14.2-18.0); MEAN CORPUSCULAR VOLUME 93 FL (80-99); MONOCYTES % (AUTO) 9.7 % (1.0-10.0); NEUTROPHILS % (AUTO) 62.5 % (45.0-75.0); PLATELET COUNT 306 K/UL (150-450); RED CELL DISTRIBUTION WIDTH 15.5 % (11.6-14.8); WHITE BLOOD COUNT 4.8 K/UL (4.8-10.8)
[2017-04-18 07:57] LABS: ALANINE AMINOTRANSFERASE 35 U/L (12-78); ALBUMIN/GLOBULIN RATIO 0.8 (1.0-2.7); ALKALINE PHOSPHATASE 71 U/L (46-116); ANION GAP 12 mmol/L (5-15); ASPARTATE AMINO TRANSFERASE 53 U/L (15-37); BLOOD UREA NITROGEN 10 mg/dL (7-18); CALCIUM 8.5 MG/DL (8.5-10.1); CARBON DIOXIDE 27 MMOL/L (21-32); CHLORIDE 103 MMOL/L (98-107); CREATININE 1.1 MG/DL (0.55-1.30); POTASSIUM 3.1 MMOL/L (3.5-5.1); SODIUM 142 MMOL/L (136-145)
[2017-04-18] MEDS: LORazepam 1mg tab ORAL PRN ×2 (08:34→15:02)
[2017-04-18] MEDS: Aspirin Baby 81mg ORAL SCH (08:34)
[2017-04-18 10:10] LABS: BILIRUBIN,TOTAL 0.7 MG/DL (0.2-1.0)
[2017-04-18] MEDS: levETIRAcetam 1,500 MG in D5W 95 ML IV SCH ×2 (10:28→21:11)
--- NOTE | 2017-04-18 10:39 | Infectious Diseases Prog Note ---
Assessment/Plan Assessment/Plan A; UTI with ESBL E. coli treated Acute lacunar CVA AMS Encephalopathy Seizure disorder HPN P; observe off antibiotic Subjective ROS Limited/Unobtainable: Yes Constitutional: Reports: other - poor appetite Neurologic: Reports: confusion Allergies: Coded Allergies: No Known Allergies (Unverified , 04/10/17) Objective Vital Signs Last 24 Hour Vital Signs Date Time Temp Pulse Resp B/P (MAP) Pulse Ox O2 Delivery O2 Flow Rate FiO2 04/18/17 08:27 68 20 148/75 97 Room Air 04/18/17 08:01 97.0 66 20 170/76 92 Room Air 04/18/17 04:33 96.7 74 20 168/89 96 Room Air 04/18/17 00:49 97.6 76 20 160/91 96 Room Air 04/17/17 19:27 97.6 74 20 169/90 96 Room Air 04/17/17 16:00 98.2 82 20 155/89 97 04/17/17 12:00 97.7 65 20 153/59 96 Height (Feet): 6 Height (Inches): 1.00 Weight (Pounds): 146 General Appearance: no acute distress HEENT: mucous membranes moist Respiratory/Chest: lungs clear Cardiovascular: normal rate Abdomen: soft, non tender Neurologic/Psychiatric: disoriented Laboratory Tests Test 04/18/17 06:00 White Blood Count 4.8 K/UL (4.8-10.8) Red Blood Count 4.10 M/UL (4.70-6.10) L Hemoglobin 12.4 G/DL (14.2-18.0) L Hematocrit 38.0 % (42.0-52.0) L Mean Corpuscular Volume 93 FL (80-99) Mean Corpuscular Hemoglobin 30.2 PG (27.0-31.0) Mean Corpuscular Hemoglobin Concent 32.6 G/DL (32.0-36.0) Red Cell Distribution Width 15.5 % (11.6-14.8) H Platelet Count 306 K/UL (150-450) Mean Platelet Volume 6.4 FL (6.5-10.1) L Neutrophils (%) (Auto) 62.5 % (45.0-75.0) Lymphocytes (%) (Auto) 23.0 % (20.0-45.0) Monocytes (%) (Auto) 9.7 % (1.0-10.0) Eosinophils (%) (Auto) 3.6 % (0.0-3.0) H Basophils (%) (Auto) 1.3 % (0.0-2.0) Sodium Level 142 MMOL/L (136-145) Potassium Level 3.1 MMOL/L (3.5-5.1) L Chloride Level 103 MMOL/L (98-107) Carbon Dioxide Level 27 MMOL/L (21-32) Anion Gap 12 mmol/L (5-15) Blood Urea Nitrogen 10 mg/dL (7-18) Creatinine 1.1 MG/DL (0.55-1.30) Estimat Glomerular Filtration Rate > 60 mL/min (>60) Glucose Level 78 MG/DL (74-106) Calcium Level 8.5 MG/DL (8.5-10.1) Total Bilirubin 0.7 MG/DL (0.2-1.0) Aspartate Amino Transf (AST/SGOT) 53 U/L (15-37) H Alanine Aminotransferase (ALT/SGPT) 35 U/L (12-78) Alkaline Phosphatase 71 U/L (46-116) Total Protein 6.7 G/DL (6.4-8.2) Albumin 3.0 G/DL (3.4-5.0) L Globulin 3.7 g/dL Albumin/Globulin Ratio 0.8 (1.0-2.7) L Current Medications Medications (Trade) Dose Ordered Sig/Miguel Angel Route PRN Reason Start Time Stop Time Status Last Admin Dose Admin Acetaminophen (Tylenol) 650 mg Q4H PRN ORAL Mild Pain/Temp > 100.5 04/15/17 17:45 05/10/17 13:44 Aspirin (ASA) 81 mg DAILY ORAL 04/16/17 09:00 05/15/17 08:59 04/18/17 08:34 Levetiracetam 1500 mg/Dextrose 110 ml @ 440 mls/hr Q12HR IV 04/15/17 21:00 05/10/17 09:59 04/18/17 10:28 Lorazepam (Ativan) 2 mg Q6H PRN ORAL Agitation 04/15/17 23:00 04/22/17 22:59 04/18/17 08:34 Olanzapine (ZyPREXA Zydis) 10 mg Q8HR ORAL 04/15/17 22:00 05/15/17 12:59 04/18/17 06:32 Sodium Chloride 1,000 ml @ 70 mls/hr [id number] IV 04/15/17 16:30 05/10/17 06:14 04/18/17 04:05 Valproate Sodium 500 mg/Dextrose 60 ml @ 60 mls/hr Q12HR IVPB 04/15/17 21:00 05/12/17 13:59 04/17/17 21:22 LUCRETIA MURPHY Apr 18, 2017 10:39
[2017-04-18] MEDS: Valproate Sodium INJ 500 MG in D5W 55 ML IVPB SCH ×2 (11:00→21:12)
--- NOTE | 2017-04-18 15:44 | General Progress Note ---
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 sepsis, resolved MRI w CVA will need PEG called GI SNF after above Subjective ROS Limited/Unobtainable: Yes Allergies: Coded Allergies: No Known Allergies (Unverified , 04/10/17) Objective Last 24 Hour Vital Signs Date Time Temp Pulse Resp B/P (MAP) Pulse Ox O2 Delivery O2 Flow Rate FiO2 04/18/17 12:00 98.2 68 20 159/65 98 04/18/17 08:27 68 20 148/75 97 Room Air 04/18/17 08:01 97.0 66 20 170/76 92 Room Air 04/18/17 04:33 96.7 74 20 168/89 96 Room Air 04/18/17 00:49 97.6 76 20 160/91 96 Room Air 04/17/17 19:27 97.6 74 20 169/90 96 Room Air 04/17/17 16:00 98.2 82 20 155/89 97 Intake and Output 04/17/17 04/18/17 19:00 07:00 Intake Total 870 ml 1060 ml Balance 870 ml 1060 ml Intake Oral 140 ml IV Total 730 ml 1060 ml # Voids 6 Laboratory Tests 04/18/17 06:00: White Blood Count 4.8, Red Blood Count 4.10L, Hemoglobin 12.4L, Hematocrit 38.0L , Mean Corpuscular Volume 93, Mean Corpuscular Hemoglobin 30.2, Mean Corpuscular Hemoglobin Concent 32.6, Red Cell Distribution Width 15.5H, Platelet Count 306, Mean Platelet Volume 6.4L, Neutrophils (%) (Auto) 62.5, Lymphocytes (%) (Auto) 23.0, Monocytes (%) (Auto) 9.7, Eosinophils (%) (Auto) 3.6H, Basophils (%) (Auto) 1.3, Sodium Level 142, Potassium Level 3.1L, Chloride Level 103, Carbon Dioxide Level 27, Anion Gap 12, Blood Urea Nitrogen 10, Creatinine 1.1, Estimat Glomerular Filtration Rate > 60, Glucose Level 78, Calcium Level 8.5, Total Bilirubin 0.7, Aspartate Amino Transf (AST/SGOT) 53H, Alanine Aminotransferase (ALT/SGPT) 35, Alkaline Phosphatase 71, Total Protein 6.7, Albumin 3.0L, Globulin 3.7, Albumin/Globulin Ratio 0.8L Height (Feet): 6 Height (Inches): 1.00 Weight (Pounds): 146 General Appearance: no apparent distress, lethargic, confused, agitated, combative Neck: supple Cardiovascular: normal rate Respiratory/Chest: lungs clear DOLORES GARCIA Apr 18, 2017 15:44
[2017-04-18] MEDS ORDERED: NS 500ML ONE (16:28)
[2017-04-18] MEDS ORDERED: Tubing IV Secondary IV ONE (16:28)
[2017-04-18] MEDS ORDERED: 1/2 NS 1000ml IV ONE (16:28)
[2017-04-18 18:02] LABS: BASOPHILS % (AUTO) 1.2 % (0.0-2.0); EOSINOPHILS % (AUTO) 2.6 % (0.0-3.0); HEMATOCRIT 36.9 % (42.0-52.0); HEMOGLOBIN 11.5 G/DL (14.2-18.0); MEAN CORPUSCULAR VOLUME 92 FL (80-99); MONOCYTES % (AUTO) 8.7 % (1.0-10.0); NEUTROPHILS % (AUTO) 71.5 % (45.0-75.0); PLATELET COUNT 266 K/UL (150-450); RED CELL DISTRIBUTION WIDTH 15.1 % (11.6-14.8); WHITE BLOOD COUNT 5.7 K/UL (4.8-10.8)
[2017-04-18] MEDS: Potassium Chloride 40 MEQ in 1/2 NS 1000ml 1,000 ML IV SCH (18:51)
[2017-04-18 19:15] LABS: ANION GAP 7 mmol/L (5-15); BLOOD UREA NITROGEN 11 mg/dL (7-18); CALCIUM 7.5 MG/DL (8.5-10.1); CARBON DIOXIDE 28 MMOL/L (21-32); CHLORIDE 107 MMOL/L (98-107); CREATININE 0.9 MG/DL (0.55-1.30); POTASSIUM 3.6 MMOL/L (3.5-5.1); SODIUM 142 MMOL/L (136-145)
--- NOTE | 2017-04-18 20:17 | General Progress Note ---
Assessment/Plan Assessment/Plan GI CONSULT ATSP for PEG placement Chart reviewed and discussed with sister and PMD Assessment - CVA - Encephalopathy Plans - PEG in am Thank you Abram Sifuentes MD Subjective Allergies: Coded Allergies: No Known Allergies (Unverified , 04/10/17) Objective Last 24 Hour Vital Signs Date Time Temp Pulse Resp B/P (MAP) Pulse Ox O2 Delivery O2 Flow Rate FiO2 04/18/17 16:00 98.6 61 20 163/73 96 04/18/17 12:00 98.2 68 20 159/65 98 04/18/17 08:27 68 20 148/75 97 Room Air 04/18/17 08:01 97.0 66 20 170/76 92 Room Air 04/18/17 04:33 96.7 74 20 168/89 96 Room Air 04/18/17 00:49 97.6 76 20 160/91 96 Room Air Intake and Output 04/17/17 04/18/17 19:00 07:00 Intake Total 870 ml 1060 ml Balance 870 ml 1060 ml Intake Oral 140 ml IV Total 730 ml 1060 ml # Voids 6 Laboratory Tests 04/18/17 06:00: White Blood Count 4.8, Red Blood Count 4.10L, Hemoglobin 12.4L, Hematocrit 38.0L , Mean Corpuscular Volume 93, Mean Corpuscular Hemoglobin 30.2, Mean Corpuscular Hemoglobin Concent 32.6, Red Cell Distribution Width 15.5H, Platelet Count 306, Mean Platelet Volume 6.4L, Neutrophils (%) (Auto) 62.5, Lymphocytes (%) (Auto) 23.0, Monocytes (%) (Auto) 9.7, Eosinophils (%) (Auto) 3.6H, Basophils (%) (Auto) 1.3, Sodium Level 142, Potassium Level 3.1L, Chloride Level 103, Carbon Dioxide Level 27, Anion Gap 12, Blood Urea Nitrogen 10, Creatinine 1.1, Estimat Glomerular Filtration Rate > 60, Glucose Level 78, Calcium Level 8.5, Total Bilirubin 0.7, Aspartate Amino Transf (AST/SGOT) 53H, Alanine Aminotransferase (ALT/SGPT) 35, Alkaline Phosphatase 71, Total Protein 6.7, Albumin 3.0L, Globulin 3.7, Albumin/Globulin Ratio 0.8L 12/21/17 17:30: White Blood Count 5.7, Red Blood Count 4.00L, Hemoglobin 11.5L, Hematocrit 36.9L , Mean Corpuscular Volume 92, Mean Corpuscular Hemoglobin 28.6, Mean Corpuscular Hemoglobin Concent 31.1L, Red Cell Distribution Width 15.1H, Platelet Count 266, Mean Platelet Volume 5.6L, Neutrophils (%) (Auto) 71.5, Lymphocytes (%) (Auto) 16.0L, Monocytes (%) (Auto) 8.7, Eosinophils (%) (Auto) 2.6, Basophils (%) (Auto) 1.2, Sodium Level 142, Potassium Level 3.6, Chloride Level 107, Carbon Dioxide Level 28, Anion Gap 7, Blood Urea Nitrogen 11, Creatinine 0.9, Estimat Glomerular Filtration Rate > 60, Glucose Level 83, Calcium Level 7.5L, Prothrombin Time 10.8, Prothromb Time International Ratio 1.0, Activated Partial Thromboplast Time 29 Height (Feet): 6 Height (Inches): 1.00 Weight (Pounds): 146 ABRAM SIFUENTES Apr 18, 2017 20:17
[2017-04-19] VITALS (9 sets, daily range): BP systolic 153–179; BP diastolic 69–99
[2017-04-19] MEDS: ZyPREXA Zydis 10mg tab ORAL SCH ×3 (05:29→21:08)
[2017-04-19] MEDS ORDERED: ceFAZolin sod 1 GM in D5W 55 ML IVPB ONE (05:30)
[2017-04-19] MEDS ORDERED: LR 1000ml 1,000 ML IVLG SCH (06:47)
--- NOTE | 2017-04-19 06:47 | Anethesia Preoperative Eval ---
Anesthesia Pre-op PMH/ROS General Date of Evaluation: Apr 19, 2017 Time of Evaluation: 06:44 Anesthesiologist: jessica ASA Score: ASA 3 Mallampati Score Class I : Soft palate, uvula, fauces, pillars visible Class II: Soft palate, uvula, fauces visible Class III: Soft palate, base of uvula visible Class IV: Only hard plate visible Mallampati Classification: Class II Surgeon: krystian Diagnosis: dysphagia Surgical Procedure: egd/ped Anesthesia History: none Social History: smoking - nonsmoker Allergies: Coded Allergies: No Known Allergies (Unverified , 04/10/17) Past Medical History Cardiovascular: Reports: arrhythmia Neurologic/Psychiatric: Reports: dementia, CVA, other - seizure, blind right eye Anesthesia Pre-op Phys. Exam Physician Exam Last Vital Signs Date Time Temp Pulse Resp B/P (MAP) Pulse Ox O2 Delivery O2 Flow Rate FiO2 04/19/17 03:59 97.6 72 20 170/69 93 Room Air Constitutional: NAD Neurologic: other Cardiovascular: RRR Respiratory: CTA Gastrointestinal: S/NT/ND Airway Exam Mallampati Score: Class II MO: full Neck: supple TMD: 2fb ROM: limited Anesthesia Pre-op A/P Labs Hematology Test 04/18/17 17:30 White Blood Count 5.7 K/UL (4.8-10.8) Red Blood Count 4.00 M/UL (4.70-6.10) L Hemoglobin 11.5 G/DL (14.2-18.0) L Hematocrit 36.9 % (42.0-52.0) L Mean Corpuscular Volume 92 FL (80-99) Mean Corpuscular Hemoglobin 28.6 PG (27.0-31.0) Mean Corpuscular Hemoglobin Concent 31.1 G/DL (32.0-36.0) L Red Cell Distribution Width 15.1 % (11.6-14.8) H Platelet Count 266 K/UL (150-450) Mean Platelet Volume 5.6 FL (6.5-10.1) L Neutrophils (%) (Auto) 71.5 % (45.0-75.0) Lymphocytes (%) (Auto) 16.0 % (20.0-45.0) L Monocytes (%) (Auto) 8.7 % (1.0-10.0) Eosinophils (%) (Auto) 2.6 % (0.0-3.0) Basophils (%) (Auto) 1.2 % (0.0-2.0) Coagulation Test 04/18/17 17:30 Prothrombin Time 10.8 SEC (9.30-11.50) Prothromb Time International Ratio 1.0 (0.9-1.1) Activated Partial Thromboplast Time 29 SEC (23-33) Chemistry Test 04/18/17 17:30 Sodium Level 142 MMOL/L (136-145) Potassium Level 3.6 MMOL/L (3.5-5.1) Chloride Level 107 MMOL/L (98-107) Carbon Dioxide Level 28 MMOL/L (21-32) Anion Gap 7 mmol/L (5-15) Blood Urea Nitrogen 11 mg/dL (7-18) Creatinine 0.9 MG/DL (0.55-1.30) Estimat Glomerular Filtration Rate > 60 mL/min (>60) Glucose Level 83 MG/DL (74-106) Calcium Level 7.5 MG/DL (8.5-10.1) L Studies Pre-op Studies: EKG - nsr, rbbb Risk Assessment & Plan Assessment: asa3 Plan: mac Status Change Before Surgery: No Pre-Antibiotics Drug: MARTI Mcgill Apr 19, 2017 06:47
[2017-04-19] MEDS ORDERED: NS 500ML IV ONE (06:55)
[2017-04-19] MEDS ORDERED: NS Irrig 1000ml ONE (07:00)
[2017-04-19] MEDS ORDERED: Midazolam 2mg/2ml Inj IVP PRN (07:00)
[2017-04-19] MEDS ORDERED: Propofol 200mg/20ml IV ONE (07:00)
[2017-04-19] MEDS ORDERED: fentaNYL 100 mcg/2 mL IV PRN (07:00)
[2017-04-19] MEDS ORDERED: Lidocaine 1% Plain 30 ml INJ ONE (07:00)
[2017-04-19] MEDS ORDERED: DiphenhydrAMINE 50mg/ml Inj IVP PRN (07:00)
[2017-04-19] MEDS ORDERED: Atropine Inj 1mg/10ml Syr IV PRN (07:00)
--- NOTE | 2017-04-19 07:07 | Pre-Procedure Note/Attestation ---
Pre-Procedure Note/Attestation Complete Prior to Procedure Planned Procedure: not applicable Procedure Narrative: EGD, PEG Indications for Procedure Pre-Operative Diagnosis: dysphagia, delirium Attestation I attest that I discussed the nature of the procedure; its benefits; risks and complications; and alternatives (and the risks and benefits of such alternatives ), prior to the procedure, with the patient (or the patient's legal access services representative). I attest that, if there was a reasonable possibility of needing a blood transfusion, the patient (or the patient's legal access services representative) was given the [facility] standardized written summary, pursuant to the [place] Blood Safety Act ([place] Health and Safety Code # 1645, as amended). I attest that I re-evaluated the patient just prior to the surgery and that there has been no change in the patient's H&P, except as documented below: SAMMI CRUM Apr 19, 2017 07:07
--- NOTE | 2017-04-19 07:10 | General Progress Note ---
Assessment/Plan Assessment/Plan Assessment - CVA - Encephalopathy - mild anemia - mild abnormal AST - likely from CVA Plans - check Hep serologies - PEG today - continue ASA Subjective Allergies: Coded Allergies: No Known Allergies (Unverified , 04/10/17) Subjective above noted d/w patient's sister last night re PEG confused, restless NPO for PEG Objective Last 24 Hour Vital Signs Date Time Temp Pulse Resp B/P (MAP) Pulse Ox O2 Delivery O2 Flow Rate FiO2 04/19/17 03:59 97.6 72 20 170/69 93 Room Air 04/19/17 00:08 97.6 76 20 164/71 97 Room Air 04/18/17 20:35 97.6 71 20 161/74 96 Room Air 04/18/17 16:00 98.6 61 20 163/73 96 04/18/17 12:00 98.2 68 20 159/65 98 04/18/17 08:27 68 20 148/75 97 Room Air 04/18/17 08:01 97.0 66 20 170/76 92 Room Air Intake and Output 04/18/17 04/19/17 19:00 07:00 Intake Total 830 ml 1270 ml Balance 830 ml 1270 ml Intake Oral 240 ml IV Total 590 ml 1270 ml # Voids 10 3 Laboratory Tests 04/18/17 17:30: White Blood Count 5.7, Red Blood Count 4.00L, Hemoglobin 11.5L, Hematocrit 36.9L , Mean Corpuscular Volume 92, Mean Corpuscular Hemoglobin 28.6, Mean Corpuscular Hemoglobin Concent 31.1L, Red Cell Distribution Width 15.1H, Platelet Count 266, Mean Platelet Volume 5.6L, Neutrophils (%) (Auto) 71.5, Lymphocytes (%) (Auto) 16.0L, Monocytes (%) (Auto) 8.7, Eosinophils (%) (Auto) 2.6, Basophils (%) (Auto) 1.2, Prothrombin Time 10.8, Prothromb Time International Ratio 1.0, Activated Partial Thromboplast Time 29, Sodium Level 142, Potassium Level 3.6, Chloride Level 107, Carbon Dioxide Level 28, Anion Gap 7, Blood Urea Nitrogen 11, Creatinine 0.9, Estimat Glomerular Filtration Rate > 60, Glucose Level 83, Calcium Level 7.5L Height (Feet): 6 Height (Inches): 1.00 Weight (Pounds): 146 Objective Thin WM NCAT Supple CTA RR Soft ND NT no edema confused, restless, moves all four SAMMI CRUM Apr 19, 2017 07:10
--- NOTE | 2017-04-19 07:39 | Endoscopy Procedure Note ---
Endoscopy Procedure Note Indication for Procedure: dysphagia, anemia Procedures Performed: EGD, other Operative Findings/Diagnosis: gastric polyp, PEG placed Specimen: yes Pt Tolerated Procedure Well: Yes Estimated Blood Loss: none Anesthesiologist: Rachna Anesthesia: MAC Medication Given: see anesthesia record PEG: yes Implant(s) used?: No 50 yrs or older w/o bx or poly: Not Applicable 10yrs. F/U not recommended: Not Applicable If not recommended, why?: SAMMI CRUM Apr 19, 2017 07:39
--- NOTE | 2017-04-19 07:40 | Brief Operative Note ---
Immediate Post Operative Note Operative Note Chief Complaint: dysphagia, anemia Pre-op Diagnosis: dysphagia, delirium Procedure: Ent, bx, PEG Post-op Diagnosis: gastric polyp, PEG Surgeon: krystian Anesthesiologist: Dheeraj Powell Anesthesia: MAC, moderate sedation Specimen: yes Complications: none Condition: stable Fluids: see record Estimated Blood Loss: none Drains: none Implant(s) used?: No SAMMI CRUM Apr 19, 2017 07:40
--- NOTE | 2017-04-19 08:01 | Immediate Post-Op Evaluation ---
Immediate Post-Op Evalulation Immediate Post-Op Evalulation Procedure: egd/peg Date of Evaluation: Apr 19, 2017 Time of Evaluation: 07:57 IV Fluids: 150ml 0.9ns Blood Products: none Estimated Blood Loss: negligible Blood Pressure Systolic: 168 Blood Pressure Diastolic: 72 Pulse Rate: 67 Respiratory Rate: 18 O2 Sat by Pulse Oximetry: 99 Temperature (Fahrenheit): 97.2 Pain Score (1-10): 0 Nausea: No Vomiting: No Complications none Patient Status: awake, reacts, patent Hydration Status: adequate Drug: MARTI Mcgill Apr 19, 2017 08:01
--- NOTE | 2017-04-19 08:02 | 48 Hour Post Anesthesia Eval ---
Post Anesthesia Evaluation Procedure: egd/peg Date of Evaluation: Apr 19, 2017 Time of Evaluation: 07:59 Blood Pressure Systolic: 166 0: 74 Pulse Rate: 66 Respiratory Rate: 18 Temperature (Fahrenheit): 97.2 O2 Sat by Pulse Oximetry: 99 Airway: patent Nausea: No Vomiting: No Pain Intensity: 0 Hydration Status: adequate Cardiopulmonary Status: stable Mental Status/LOC: patient returned to baseline Post-Anesthesia Complications: none Follow-up care needed: N/A MARTI RUIZ Apr 19, 2017 08:02
--- NOTE | 2017-04-19 09:18 | General Progress Note ---
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 sepsis, resolved MRI w CVA Placed PEG today add losartan for BP SNF tomorrow if stable and tolerates feeds Subjective Allergies: Coded Allergies: No Known Allergies (Unverified , 04/10/17) Objective Last 24 Hour Vital Signs Date Time Temp Pulse Resp B/P (MAP) Pulse Ox O2 Delivery O2 Flow Rate FiO2 04/19/17 08:10 97.6 72 15 168/81 97 Nasal Cannula 3.0 04/19/17 08:02 66 18 99 04/19/17 08:01 67 18 99 04/19/17 07:55 73 11 179/99 94 Nasal Cannula 3.0 04/19/17 07:50 69 15 162/73 95 Nasal Cannula 3.0 04/19/17 07:45 97.2 67 14 168/72 95 Nasal Cannula 3.0 04/19/17 03:59 97.6 72 20 170/69 93 Room Air 04/19/17 00:08 97.6 76 20 164/71 97 Room Air 04/18/17 20:35 97.6 71 20 161/74 96 Room Air 04/18/17 16:00 98.6 61 20 163/73 96 04/18/17 12:00 98.2 68 20 159/65 98 Intake and Output 04/18/17 04/19/17 19:00 07:00 Intake Total 830 ml 1270 ml Balance 830 ml 1270 ml Intake Oral 240 ml IV Total 590 ml 1270 ml # Voids 10 3 Laboratory Tests 04/18/17 17:30: White Blood Count 5.7, Red Blood Count 4.00L, Hemoglobin 11.5L, Hematocrit 36.9L , Mean Corpuscular Volume 92, Mean Corpuscular Hemoglobin 28.6, Mean Corpuscular Hemoglobin Concent 31.1L, Red Cell Distribution Width 15.1H, Platelet Count 266, Mean Platelet Volume 5.6L, Neutrophils (%) (Auto) 71.5, Lymphocytes (%) (Auto) 16.0L, Monocytes (%) (Auto) 8.7, Eosinophils (%) (Auto) 2.6, Basophils (%) (Auto) 1.2, Prothrombin Time 10.8, Prothromb Time International Ratio 1.0, Activated Partial Thromboplast Time 29, Sodium Level 142, Potassium Level 3.6, Chloride Level 107, Carbon Dioxide Level 28, Anion Gap 7, Blood Urea Nitrogen 11, Creatinine 0.9, Estimat Glomerular Filtration Rate > 60, Glucose Level 83, Calcium Level 7.5L Height (Feet): 6 Height (Inches): 1.00 Weight (Pounds): 146 DOLORES GARCIA Apr 19, 2017 09:18
[2017-04-19] MEDS: levETIRAcetam 1,500 MG in D5W 95 ML IV SCH ×2 (09:44→20:59)
[2017-04-19] MEDS: Aspirin Baby 81mg ORAL SCH (09:44)
[2017-04-19] MEDS: Valproate Sodium INJ 500 MG in D5W 55 ML IVPB SCH ×2 (10:12→21:08)
[2017-04-19] MEDS: Losartan 50mg tab ORAL SCH (10:15)
[2017-04-19] MEDS: Potassium Chloride 40 MEQ in 1/2 NS 1000ml 1,000 ML IV SCH ×2 (11:35→23:06)
--- NOTE | 2017-04-19 16:31 | Procedure Note ---
DATE OF PROCEDURE: 04/19/2017 GASTROENTEROLOGY PROCEDURE REPORT SURGEON: Abram Sifuentes M.D. ANESTHESIOLOGIST: Maris Angeles M.D. PROCEDURE: Upper gastrointestinal endoscopy with enteroscopy and biopsy as well as gastrostomy tube placement. PRE-ENDOSCOPIC DIAGNOSES: 1. Delirium and dysphagia. 2. Anemia. POST-ENDOSCOPIC DIAGNOSES: 1. Diminutive gastric polyps, status post biopsy. 2. Status post gastrostomy tube placement. DESCRIPTION OF PROCEDURE: The procedure, its risks, indications, alternatives, and possible complications were explained to the patient's sister and an informed consent was obtained. The patient was then sedated in the supine position and a diagnostic upper endoscope was introduced through the oropharynx and advanced to the third portion of duodenum without difficulty. The endoscope was then gradually withdrawn and mucosa examined carefully. Examination of the upper gastric mucosa revealed a diminutive gastric polyp in the midbody, which was removed with the biopsy forceps. No ulcers were seen. The location of the placement of the gastrostomy tube was then identified by palpation and transillumination technique, and the gastrostomy tube was placed using a standard pull technique. Position was verified endoscopically. The endoscope was removed and the patient was sent to recovery in good condition. COMPLICATIONS: None. RECOMMENDATIONS: 1. Observe overnight. 2. Gastrostomy site care. 3. Follow up biopsy results. 4. Begin tube feedings tomorrow. Thank you for asking me to participate in the care of this patient. Abram Sifuentes M.D. DR: LICO JOB#: [id number] CC:
--- NOTE | 2017-04-19 16:48 | Infectious Diseases Prog Note ---
Assessment/Plan Assessment/Plan A; UTI with ESBL E. coli treated Acute lacunar CVA AMS Encephalopathy Seizure disorder HPN Gastrostomy status P; observe off antibiotic Subjective ROS Limited/Unobtainable: Yes Gastrointestinal/Abdominal: Reports: other - had GT placement Neurologic: Reports: confusion Allergies: Coded Allergies: No Known Allergies (Unverified , 04/10/17) Objective Vital Signs Last 24 Hour Vital Signs Date Time Temp Pulse Resp B/P (MAP) Pulse Ox O2 Delivery O2 Flow Rate FiO2 04/19/17 12:00 97.5 68 17 153/79 100 Nasal Cannula 3.0 04/19/17 10:15 168/81 04/19/17 08:46 Nasal Cannula 2.0 28 04/19/17 08:46 98 Nasal Cannula 2.0 28 04/19/17 08:10 97.6 72 15 168/81 97 Nasal Cannula 3.0 04/19/17 08:02 66 18 99 04/19/17 08:01 67 18 99 04/19/17 07:55 73 11 179/99 94 Nasal Cannula 3.0 04/19/17 07:50 69 15 162/73 95 Nasal Cannula 3.0 04/19/17 07:45 97.2 67 14 168/72 95 Nasal Cannula 3.0 04/19/17 03:59 97.6 72 20 170/69 93 Room Air 04/19/17 00:08 97.6 76 20 164/71 97 Room Air 04/18/17 20:35 97.6 71 20 161/74 96 Room Air Height (Feet): 6 Height (Inches): 1.00 Weight (Pounds): 146 General Appearance: no acute distress HEENT: mucous membranes moist Respiratory/Chest: lungs clear Cardiovascular: normal rate Abdomen: soft, non tender Extremities: no edema Neurologic/Psychiatric: disoriented Laboratory Tests Test 04/18/17 17:30 White Blood Count 5.7 K/UL (4.8-10.8) Red Blood Count 4.00 M/UL (4.70-6.10) L Hemoglobin 11.5 G/DL (14.2-18.0) L Hematocrit 36.9 % (42.0-52.0) L Mean Corpuscular Volume 92 FL (80-99) Mean Corpuscular Hemoglobin 28.6 PG (27.0-31.0) Mean Corpuscular Hemoglobin Concent 31.1 G/DL (32.0-36.0) L Red Cell Distribution Width 15.1 % (11.6-14.8) H Platelet Count 266 K/UL (150-450) Mean Platelet Volume 5.6 FL (6.5-10.1) L Neutrophils (%) (Auto) 71.5 % (45.0-75.0) Lymphocytes (%) (Auto) 16.0 % (20.0-45.0) L Monocytes (%) (Auto) 8.7 % (1.0-10.0) Eosinophils (%) (Auto) 2.6 % (0.0-3.0) Basophils (%) (Auto) 1.2 % (0.0-2.0) Prothrombin Time 10.8 SEC (9.30-11.50) Prothromb Time International Ratio 1.0 (0.9-1.1) Activated Partial Thromboplast Time 29 SEC (23-33) Sodium Level 142 MMOL/L (136-145) Potassium Level 3.6 MMOL/L (3.5-5.1) Chloride Level 107 MMOL/L (98-107) Carbon Dioxide Level 28 MMOL/L (21-32) Anion Gap 7 mmol/L (5-15) Blood Urea Nitrogen 11 mg/dL (7-18) Creatinine 0.9 MG/DL (0.55-1.30) Estimat Glomerular Filtration Rate > 60 mL/min (>60) Glucose Level 83 MG/DL (74-106) Calcium Level 7.5 MG/DL (8.5-10.1) L Current Medications Medications (Trade) Dose Ordered Sig/Miguel Angel Route PRN Reason Start Time Stop Time Status Last Admin Dose Admin Acetaminophen (Tylenol) 650 mg Q4H PRN ORAL Mild Pain/Temp > 100.5 04/15/17 17:45 05/10/17 13:44 Aspirin (ASA) 81 mg DAILY ORAL 04/16/17 09:00 05/15/17 08:59 04/19/17 09:44 Levetiracetam 1500 mg/Dextrose 110 ml @ 440 mls/hr Q12HR IV 04/15/17 21:00 05/10/17 09:59 04/19/17 09:44 Lorazepam (Ativan) 2 mg Q6H PRN ORAL Agitation 04/15/17 23:00 04/22/17 22:59 04/18/17 15:02 Losartan Potassium (Cozaar) 100 mg DAILY ORAL 04/19/17 09:30 05/19/17 09:29 04/19/17 10:15 Olanzapine (ZyPREXA Zydis) 10 mg Q8HR ORAL 04/15/17 22:00 05/15/17 12:59 04/19/17 14:07 Potassium Chloride 40 meq/ Sodium Chloride 1,020 ml @ 70 mls/hr [id number] IV 04/18/17 17:00 05/18/17 16:59 04/19/17 11:35 Valproate Sodium 500 mg/Dextrose 60 ml @ 60 mls/hr Q12HR IVPB 04/15/17 21:00 05/12/17 13:59 04/19/17 10:12 LUCRETIA MURPHY Apr 19, 2017 16:48
[2017-04-19] MEDS: LORazepam 1mg tab ORAL PRN (17:10)
[2017-04-20] VITALS: BP 154/77
[2017-04-20 04:00] VITALS: BP 147/86
[2017-04-20] MEDS: ZyPREXA Zydis 10mg tab ORAL SCH ×3 (05:08→21:23)
[2017-04-20 08:00] VITALS: BP 152/78
--- NOTE | 2017-04-20 08:20 | General Progress Note ---
Assessment/Plan Problem List: (1) G tube feedings ICD Codes: Z93.1 - Gastrostomy status SNOMED: 303458279, 801520581 (2) UTI (urinary tract infection) ICD Codes: N39.0 - Urinary tract infection, site not specified SNOMED: 70329143 (3) Seizure ICD Codes: R56.9 - Unspecified convulsions SNOMED: 16714903 (4) Altered mental status ICD Codes: R41.82 - Altered mental status, unspecified SNOMED: 110712043 Assessment/Plan s/p PEG placement yesterday start GTF GT flush dc planning per primary team Subjective ROS Limited/Unobtainable: No Allergies: Coded Allergies: No Known Allergies (Unverified , 04/10/17) Objective Last 24 Hour Vital Signs Date Time Temp Pulse Resp B/P (MAP) Pulse Ox O2 Delivery O2 Flow Rate FiO2 04/20/17 04:00 97.3 88 21 147/86 100 04/20/17 00:00 97.5 87 21 154/77 99 04/19/17 20:20 Nasal Cannula 2.0 28 04/19/17 20:20 98 Nasal Cannula 2.0 28 04/19/17 20:00 97.9 96 22 168/87 100 04/19/17 16:00 98.2 71 22 157/73 Nasal Cannula 3.0 04/19/17 12:00 97.5 68 17 153/79 100 Nasal Cannula 3.0 04/19/17 10:15 168/81 04/19/17 08:46 Nasal Cannula 2.0 28 04/19/17 08:46 98 Nasal Cannula 2.0 28 Intake and Output 04/19/17 04/20/17 19:00 07:00 Intake Total 1090 ml 700 ml Balance 1090 ml 700 ml IV Total 1090 ml 700 ml # Voids 2 3 Laboratory Tests 04/20/17 05:57: Hepatitis A IgM Antibody [Pending], Hepatitis B Surface Antigen [Pending], Hepatitis B Core IgM Antibody [Pending], Hepatitis C Antibody [Pending] Height (Feet): 6 Height (Inches): 1.00 Weight (Pounds): 146 General Appearance: no apparent distress EENT: normal ENT inspection Neck: supple Cardiovascular: normal rate Respiratory/Chest: decreased breath sounds Abdomen: normal bowel sounds, non tender, soft Extremities: non-tender ROBYN CROFT Apr 20, 2017 08:20
[2017-04-20] MEDS ORDERED: LEVETIRACETAM IV ONE (09:00)
[2017-04-20] MEDS ORDERED: NS IV ONE (09:00)
[2017-04-20] MEDS: Aspirin Baby 81mg ORAL SCH (09:29)
[2017-04-20] MEDS: Losartan 50mg tab ORAL SCH (09:30)
[2017-04-20] MEDS: Valproate Sodium INJ 500 MG in D5W 55 ML IVPB SCH (09:46)
--- NOTE | 2017-04-20 10:42 | Infectious Diseases Prog Note ---
Assessment/Plan Assessment/Plan antibiotics : none A 1. e.coli UTI s/p rx 2. leucocytosis resolved 3. renal failure improving 4. HTN 5. seizures P 1. continue off antibiotics Subjective ROS Limited/Unobtainable: Yes Allergies: Coded Allergies: No Known Allergies (Unverified , 04/10/17) Objective Vital Signs Last 24 Hour Vital Signs Date Time Temp Pulse Resp B/P (MAP) Pulse Ox O2 Delivery O2 Flow Rate FiO2 04/20/17 09:30 152/78 04/20/17 08:18 97 Nasal Cannula 2.0 28 04/20/17 08:18 Nasal Cannula 2.0 28 04/20/17 08:00 97.3 75 20 152/78 99 04/20/17 04:00 97.3 88 21 147/86 100 04/20/17 00:00 97.5 87 21 154/77 99 04/19/17 20:20 Nasal Cannula 2.0 28 04/19/17 20:20 98 Nasal Cannula 2.0 28 04/19/17 20:00 97.9 96 22 168/87 100 04/19/17 16:00 98.2 71 22 157/73 Nasal Cannula 3.0 04/19/17 12:00 97.5 68 17 153/79 100 Nasal Cannula 3.0 Height (Feet): 6 Height (Inches): 1.00 Weight (Pounds): 146 Respiratory/Chest: lungs clear Cardiovascular: normal rate, regular rhythm, no gallop/murmur Abdomen: soft, non tender, other - GT Extremities: no edema Laboratory Tests Test 04/20/17 05:57 Hepatitis A IgM Antibody Pending Hepatitis B Surface Antigen Pending Hepatitis B Core IgM Antibody Pending Hepatitis C Antibody Pending TYESHA FLOOD Apr 20, 2017 10:42
[2017-04-20 12:00] VITALS: BP 164/77
[2017-04-20] MEDS: Potassium Chloride 40 MEQ in 1/2 NS 1000ml 1,000 ML IV SCH (13:35)
[2017-04-20] MEDS: LORazepam 1mg tab ORAL PRN ×2 (15:13→22:23)
[2017-04-20 16:00] VITALS: BP 162/88
--- NOTE | 2017-04-20 18:27 | Pulmonology Progress Note ---
Assessment/Plan 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 sepsis, resolved TF wound care sitter bp control cleared for DC but no bed available per nursing check labs saturday Subjective ROS Limited/Unobtainable: Yes Allergies: Coded Allergies: No Known Allergies (Unverified , 04/10/17) Subjective sleeping agitated at times, continued positive cough no reports of cp nv or bleeding nonambulation 1:1 sitter present SP GT tolerating Tf Objective Last 24 Hour Vital Signs Date Time Temp Pulse Resp B/P (MAP) Pulse Ox O2 Delivery O2 Flow Rate FiO2 04/20/17 17:17 86 162/88 04/20/17 16:00 97.0 86 20 162/88 95 04/20/17 12:00 97.9 72 21 164/77 98 04/20/17 09:30 152/78 04/20/17 08:18 97 Nasal Cannula 2.0 28 04/20/17 08:18 Nasal Cannula 2.0 28 04/20/17 08:00 97.3 75 20 152/78 99 04/20/17 04:00 97.3 88 21 147/86 100 04/20/17 00:00 97.5 87 21 154/77 99 04/19/17 20:20 Nasal Cannula 2.0 28 04/19/17 20:20 98 Nasal Cannula 2.0 28 04/19/17 20:00 97.9 96 22 168/87 100 Intake and Output 04/19/17 04/20/17 19:00 07:00 Intake Total 1090 ml 770 ml Balance 1090 ml 770 ml IV Total 1090 ml 770 ml # Voids 2 3 General Appearance: cachetic HEENT: atraumatic, anicteric Respiratory/Chest: rhonchi Cardiovascular: normal rate, regular rhythm Abdomen: soft, non tender, tender Extremities: no cyanosis, no clubbing Neurologic/Psychiatric: disoriented, unresponsiveness, aphasia Laboratory Tests 04/20/17 05:57: Hepatitis A IgM Antibody [Pending], Hepatitis B Surface Antigen [Pending], Hepatitis B Core IgM Antibody [Pending], Hepatitis C Antibody [Pending] Current Medications Medications (Trade) Dose Ordered Sig/Miguel Angel Route PRN Reason Start Time Stop Time Status Last Admin Dose Admin Acetaminophen (Tylenol) 650 mg Q4H PRN ORAL Mild Pain/Temp > 100.5 12/18/17 17:45 05/10/17 13:44 Amlodipine Besylate (Norvasc) 5 mg BID ORAL 04/20/17 18:00 05/20/17 17:59 04/20/17 17:17 Aspirin (ASA) 81 mg DAILY ORAL 04/16/17 09:00 05/15/17 08:59 04/20/17 09:29 Levetiracetam (Keppra) 1,500 mg Q12HR ORAL 04/20/17 21:00 05/20/17 20:59 Lorazepam (Ativan) 2 mg Q6H PRN ORAL Agitation 04/15/17 23:00 04/22/17 22:59 04/20/17 15:13 Losartan Potassium (Cozaar) 100 mg DAILY ORAL 04/19/17 09:30 05/19/17 09:29 04/20/17 09:30 Olanzapine (ZyPREXA Zydis) 10 mg Q8HR ORAL 04/15/17 22:00 05/15/17 12:59 04/20/17 13:35 Valproic Acid (Depakene) 500 mg TWICE A DAY ORAL 04/20/17 18:00 05/20/17 17:59 04/20/17 17:17 TOMASZ YUSUF DO Apr 20, 2017 18:27
[2017-04-20 20:08] VITALS: BP 155/67
[2017-04-20] MEDS ORDERED: D5W IV SCH (21:00)
[2017-04-20] MEDS ORDERED: LEVETIRACETAM IV SCH (21:00)
--- NOTE | 2017-04-20 21:15 | Progress Note ---
DATE: 04/20/2017 SUBJECTIVE: Tao is at bedside. He was asleep and calm. He still has episodes of anxiety and agitation. He has poor insight and judgment. He is disoriented and confused. MENTAL STATUS EXAMINATION: The patient is lethargic. Mood is agitated. Affect is constricted. Congruent with mood. Thought process is concrete. Thought content, no suicidal or homicidal ideations. ASSESSMENT: 1. Encephalopathy. 2. Acute stroke. 3. Urinary tract infection. PLAN: We will continue the Zyprexa. Fiordaliza Koehler M.D. DR: DOMO JOB#: [id number] CC:
[2017-04-21 00:09] VITALS: BP 142/69
[2017-04-21 04:11] VITALS: BP 146/80
[2017-04-21] MEDS: ZyPREXA Zydis 10mg tab ORAL SCH ×3 (05:02→21:28)
[2017-04-21 08:00] VITALS: BP 158/71
--- NOTE | 2017-04-21 08:08 | Infectious Diseases Prog Note ---
Assessment/Plan Assessment/Plan A; UTI with ESBL E. coli treated Acute lacunar CVA AMS Encephalopathy Seizure disorder HPN Gastrostomy status P; observe off antibiotic Waiting for bed in SNF Subjective ROS Limited/Unobtainable: Yes Allergies: Coded Allergies: No Known Allergies (Unverified , 04/10/17) Objective Vital Signs Last 24 Hour Vital Signs Date Time Temp Pulse Resp B/P (MAP) Pulse Ox O2 Delivery O2 Flow Rate FiO2 04/21/17 04:11 96.8 65 18 146/80 95 Nasal Cannula 04/21/17 04:00 Nasal Cannula 2.0 04/21/17 00:09 97.9 71 18 142/69 96 Nasal Cannula 04/21/17 00:00 Nasal Cannula 2.0 04/20/17 20:08 98.1 79 19 155/67 98 Nasal Cannula 04/20/17 20:00 Nasal Cannula 2.0 04/20/17 20:00 Nasal Cannula 2.0 04/20/17 17:17 86 162/88 04/20/17 16:00 97.0 86 20 162/88 95 04/20/17 12:00 97.9 72 21 164/77 98 04/20/17 09:30 152/78 04/20/17 08:18 97 Nasal Cannula 2.0 28 04/20/17 08:18 Nasal Cannula 2.0 28 Height (Feet): 6 Height (Inches): 1.00 Weight (Pounds): 146 General Appearance: no acute distress HEENT: other - dry mouth Respiratory/Chest: lungs clear Cardiovascular: normal rate Abdomen: soft, non tender, other - GT feeding Extremities: no edema Neurologic/Psychiatric: other - sleeping Current Medications Medications (Trade) Dose Ordered Sig/Miguel Angel Route PRN Reason Start Time Stop Time Status Last Admin Dose Admin Acetaminophen (Tylenol) 650 mg Q4H PRN ORAL Mild Pain/Temp > 100.5 04/15/17 17:45 05/10/17 13:44 Amlodipine Besylate (Norvasc) 5 mg BID ORAL 04/20/17 18:00 05/20/17 17:59 04/20/17 17:17 Aspirin (ASA) 81 mg DAILY ORAL 04/16/17 09:00 05/15/17 08:59 04/20/17 09:29 Levetiracetam (Keppra) 1,500 mg Q12HR ORAL 04/20/17 21:00 05/20/17 20:59 04/20/17 21:23 Lorazepam (Ativan) 2 mg Q6H PRN ORAL Agitation 04/15/17 23:00 04/22/17 22:59 04/20/17 22:23 Losartan Potassium (Cozaar) 100 mg DAILY ORAL 04/19/17 09:30 05/19/17 09:29 04/20/17 09:30 Olanzapine (ZyPREXA Zydis) 10 mg Q8HR ORAL 04/15/17 22:00 05/15/17 12:59 04/21/17 05:02 Valproic Acid (Depakene) 500 mg TWICE A DAY ORAL 04/20/17 18:00 05/20/17 17:59 04/20/17 17:17 LUCRETIA MURPHY Apr 21, 2017 08:08
--- NOTE | 2017-04-21 09:44 | General Progress Note ---
Assessment/Plan Problem List: (1) G tube feedings ICD Codes: Z93.1 - Gastrostomy status SNOMED: 592511134, 306126873 (2) UTI (urinary tract infection) ICD Codes: N39.0 - Urinary tract infection, site not specified SNOMED: 21467808 (3) Seizure ICD Codes: R56.9 - Unspecified convulsions SNOMED: 63782358 (4) Altered mental status ICD Codes: R41.82 - Altered mental status, unspecified SNOMED: 573687580 Assessment/Plan s/p PEG placement GTF GT flush dc planning per primary team Subjective ROS Limited/Unobtainable: No Allergies: Coded Allergies: No Known Allergies (Unverified , 04/10/17) Objective Last 24 Hour Vital Signs Date Time Temp Pulse Resp B/P (MAP) Pulse Ox O2 Delivery O2 Flow Rate FiO2 04/21/17 09:02 Nasal Cannula 2.0 28 04/21/17 09:01 95 Nasal Cannula 2.0 28 04/21/17 04:11 96.8 65 18 146/80 95 Nasal Cannula 04/21/17 04:00 Nasal Cannula 2.0 04/21/17 00:09 97.9 71 18 142/69 96 Nasal Cannula 04/21/17 00:00 Nasal Cannula 2.0 04/20/17 20:08 98.1 79 19 155/67 98 Nasal Cannula 04/20/17 20:00 Nasal Cannula 2.0 04/20/17 20:00 Nasal Cannula 2.0 04/20/17 17:17 86 162/88 04/20/17 16:00 97.0 86 20 162/88 95 04/20/17 12:00 97.9 72 21 164/77 98 Intake and Output 04/20/17 04/21/17 19:00 07:00 Intake Total 695 ml 810 ml Output Total 200 ml Balance 695 ml 610 ml Free Water 75 ml 190 ml IV Total 350 ml Tube Feeding 270 ml 620 ml Output Urine Total 200 ml Height (Feet): 6 Height (Inches): 1.00 Weight (Pounds): 146 General Appearance: no apparent distress EENT: normal ENT inspection Neck: supple Cardiovascular: normal rate Respiratory/Chest: decreased breath sounds Abdomen: normal bowel sounds, non tender, soft Extremities: non-tender ROBYN CROFT Apr 21, 2017 09:44
[2017-04-21] MEDS: Losartan 50mg tab ORAL SCH (10:01)
[2017-04-21] MEDS: Aspirin Baby 81mg ORAL SCH (10:02)
[2017-04-21 12:00] VITALS: BP 159/89
[2017-04-21] MEDS ORDERED: Sterile Water Irrig 1000ml IRRIG ONE (12:40)
--- NOTE | 2017-04-21 14:45 | Pulmonology Progress Note ---
Assessment/Plan 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 sepsis, resolved TF wound care sitter bp control cleared for DC but no bed available per nursing check labs saturday Subjective ROS Limited/Unobtainable: Yes Allergies: Coded Allergies: No Known Allergies (Unverified , 04/10/17) Subjective sleeping agitated at times, continued positive cough no reports of cp nv or bleeding nonambulation 1:1 sitter present SP GT tolerating Tf Objective Last 24 Hour Vital Signs Date Time Temp Pulse Resp B/P (MAP) Pulse Ox O2 Delivery O2 Flow Rate FiO2 04/21/17 12:00 97.0 74 16 159/89 98 Nasal Cannula 2.0 04/21/17 10:01 158/71 04/21/17 09:55 82 158/71 04/21/17 09:02 Nasal Cannula 2.0 28 04/21/17 09:01 95 Nasal Cannula 2.0 28 04/21/17 08:00 97.2 79 18 158/71 99 Nasal Cannula 2.0 04/21/17 04:11 96.8 65 18 146/80 95 Nasal Cannula 04/21/17 04:00 Nasal Cannula 2.0 04/21/17 00:09 97.9 71 18 142/69 96 Nasal Cannula 04/21/17 00:00 Nasal Cannula 2.0 04/20/17 20:08 98.1 79 19 155/67 98 Nasal Cannula 04/20/17 20:00 Nasal Cannula 2.0 04/20/17 20:00 Nasal Cannula 2.0 04/20/17 17:17 86 162/88 04/20/17 16:00 97.0 86 20 162/88 95 Intake and Output 04/20/17 04/21/17 19:00 07:00 Intake Total 695 ml 810 ml Output Total 200 ml Balance 695 ml 610 ml Free Water 75 ml 190 ml IV Total 350 ml Tube Feeding 270 ml 620 ml Output Urine Total 200 ml General Appearance: cachetic HEENT: atraumatic, anicteric Respiratory/Chest: rhonchi Cardiovascular: regular rhythm, murmur systolic Abdomen: soft, non tender, no organomegaly Extremities: no cyanosis Skin: no rash Neurologic/Psychiatric: disoriented, unresponsiveness, aphasia Current Medications Medications (Trade) Dose Ordered Sig/Miguel Angel Route PRN Reason Start Time Stop Time Status Last Admin Dose Admin Acetaminophen (Tylenol) 650 mg Q4H PRN ORAL Mild Pain/Temp > 100.5 04/15/17 17:45 05/10/17 13:44 Amlodipine Besylate (Norvasc) 5 mg BID ORAL 04/20/17 18:00 05/20/17 17:59 04/21/17 09:55 Aspirin (ASA) 81 mg DAILY ORAL 04/16/17 09:00 05/15/17 08:59 04/21/17 10:02 Levetiracetam (Keppra) 1,500 mg Q12HR ORAL 04/20/17 21:00 05/20/17 20:59 04/21/17 09:54 Lorazepam (Ativan) 2 mg Q6H PRN ORAL Agitation 04/15/17 23:00 04/22/17 22:59 04/20/17 22:23 Losartan Potassium (Cozaar) 100 mg DAILY ORAL 04/19/17 09:30 05/19/17 09:29 04/21/17 10:01 Olanzapine (ZyPREXA Zydis) 10 mg Q8HR ORAL 04/15/17 22:00 05/15/17 12:59 04/21/17 14:29 Valproic Acid (Depakene) 500 mg TWICE A DAY ORAL 04/20/17 18:00 05/20/17 17:59 04/21/17 09:54 TOMASZ YUSUF DO Apr 21, 2017 14:45
[2017-04-21] MEDS: LORazepam 1mg tab ORAL PRN ×2 (15:35→21:28)
[2017-04-21 16:00] VITALS: BP 132/84
[2017-04-21 20:29] VITALS: BP 170/85
[2017-04-22] VITALS (7 sets, daily range): BP systolic 137–164; BP diastolic 70–96
[2017-04-22] MEDS: ZyPREXA Zydis 10mg tab ORAL SCH ×3 (05:32→21:17)
[2017-04-22 07:04] LABS: BASOPHILS % (AUTO) 1.3 % (0.0-2.0); EOSINOPHILS % (AUTO) 3.4 % (0.0-3.0); HEMATOCRIT 38.4 % (42.0-52.0); HEMOGLOBIN 12.3 G/DL (14.2-18.0); LYMPHOCYTES % (AUTO) 19.6 % (20.0-45.0); MEAN CORPUSCULAR VOLUME 93 FL (80-99); MONOCYTES % (AUTO) 12.4 % (1.0-10.0); NEUTROPHILS % (AUTO) 63.4 % (45.0-75.0); PLATELET COUNT 309 K/UL (150-450); RED BLOOD COUNT 4.14 M/UL (4.70-6.10); RED CELL DISTRIBUTION WIDTH 15.6 % (11.6-14.8); WHITE BLOOD COUNT 5.5 K/UL (4.8-10.8)
[2017-04-22 07:40] LABS: ANION GAP 4 mmol/L (5-15); BLOOD UREA NITROGEN 17 mg/dL (7-18); CALCIUM 8.2 MG/DL (8.5-10.1); CARBON DIOXIDE 33 MMOL/L (21-32); CHLORIDE 108 MMOL/L (98-107); POTASSIUM 4.3 MMOL/L (3.5-5.1); SODIUM 145 MMOL/L (136-145)
[2017-04-22] MEDS: Aspirin Baby 81mg ORAL SCH (08:34)
[2017-04-22] MEDS: Losartan 50mg tab ORAL SCH (08:35)
--- NOTE | 2017-04-22 09:09 | Infectious Diseases Prog Note ---
Assessment/Plan Assessment/Plan A; UTI with ESBL E. coli treated Acute lacunar CVA AMS Encephalopathy Seizure disorder HPN Gastrostomy status P; observe off antibiotic Waiting for bed in SNF Subjective ROS Limited/Unobtainable: Yes Allergies: Coded Allergies: No Known Allergies (Unverified , 04/10/17) Objective Vital Signs Last 24 Hour Vital Signs Date Time Temp Pulse Resp B/P (MAP) Pulse Ox O2 Delivery O2 Flow Rate FiO2 04/22/17 08:38 97 Nasal Cannula 2.0 28 04/22/17 08:38 Nasal Cannula 2.0 28 04/22/17 08:35 164/94 04/22/17 08:33 85 164/94 04/22/17 08:00 97.3 85 18 164/94 98 Nasal Cannula 2.0 04/22/17 04:28 Nasal Cannula 2.0 04/22/17 04:04 97.9 83 20 154/83 99 04/22/17 02:17 Nasal Cannula 2.0 28 04/22/17 02:16 96 Nasal Cannula 2.0 28 04/22/17 00:26 97.9 80 20 145/70 98 04/22/17 00:00 Nasal Cannula 2.0 04/21/17 20:29 97.7 89 21 170/85 99 04/21/17 20:00 Nasal Cannula 2.0 04/21/17 18:35 87 132/84 04/21/17 16:00 97.7 87 20 132/84 99 Nasal Cannula 2.0 04/21/17 12:00 97.0 74 16 159/89 98 Nasal Cannula 2.0 04/21/17 10:01 158/71 04/21/17 09:55 82 158/71 Height (Feet): 6 Height (Inches): 1.00 Weight (Pounds): 146 General Appearance: no acute distress HEENT: mucous membranes moist Respiratory/Chest: lungs clear Cardiovascular: normal rate Abdomen: soft, non tender, other - GT feeding Extremities: no edema Neurologic/Psychiatric: other - sleeping Laboratory Tests Test 04/22/17 04:55 White Blood Count 5.5 K/UL (4.8-10.8) Red Blood Count 4.14 M/UL (4.70-6.10) L Hemoglobin 12.3 G/DL (14.2-18.0) L Hematocrit 38.4 % (42.0-52.0) L Mean Corpuscular Volume 93 FL (80-99) Mean Corpuscular Hemoglobin 29.7 PG (27.0-31.0) Mean Corpuscular Hemoglobin Concent 32.0 G/DL (32.0-36.0) Red Cell Distribution Width 15.6 % (11.6-14.8) H Platelet Count 309 K/UL (150-450) Mean Platelet Volume 6.3 FL (6.5-10.1) L Neutrophils (%) (Auto) 63.4 % (45.0-75.0) Lymphocytes (%) (Auto) 19.6 % (20.0-45.0) L Monocytes (%) (Auto) 12.4 % (1.0-10.0) H Eosinophils (%) (Auto) 3.4 % (0.0-3.0) H Basophils (%) (Auto) 1.3 % (0.0-2.0) Sodium Level 145 MMOL/L (136-145) Potassium Level 4.3 MMOL/L (3.5-5.1) Chloride Level 108 MMOL/L (98-107) H Carbon Dioxide Level 33 MMOL/L (21-32) H Anion Gap 4 mmol/L (5-15) L Blood Urea Nitrogen 17 mg/dL (7-18) Creatinine 1.0 MG/DL (0.55-1.30) Estimat Glomerular Filtration Rate > 60 mL/min (>60) Glucose Level 114 MG/DL (74-106) H Calcium Level 8.2 MG/DL (8.5-10.1) L Current Medications Medications (Trade) Dose Ordered Sig/Miguel Angel Route PRN Reason Start Time Stop Time Status Last Admin Dose Admin Acetaminophen (Tylenol) 650 mg Q4H PRN ORAL Mild Pain/Temp > 100.5 04/15/17 17:45 05/10/17 13:44 Amlodipine Besylate (Norvasc) 5 mg BID ORAL 04/20/17 18:00 05/20/17 17:59 04/22/17 08:33 Aspirin (ASA) 81 mg DAILY ORAL 04/16/17 09:00 05/15/17 08:59 04/22/17 08:34 Levetiracetam (Keppra) 1,500 mg Q12HR ORAL 04/20/17 21:00 05/20/17 20:59 04/22/17 08:34 Lorazepam (Ativan) 2 mg Q6H PRN ORAL Agitation 04/15/17 23:00 04/22/17 22:59 04/21/17 21:28 Losartan Potassium (Cozaar) 100 mg DAILY ORAL 04/19/17 09:30 05/19/17 09:29 04/22/17 08:35 Olanzapine (ZyPREXA Zydis) 10 mg Q8HR ORAL 04/15/17 22:00 05/15/17 12:59 04/22/17 05:32 Valproic Acid (Depakene) 500 mg TWICE A DAY ORAL 04/20/17 18:00 05/20/17 17:59 04/22/17 08:34 LUCRETIA MURPHY Apr 22, 2017 09:09
[2017-04-22] MEDS ORDERED: Sterile Water Irrig 1000ml IRRIG ONE (10:34)
--- NOTE | 2017-04-22 10:48 | General Progress Note ---
Assessment/Plan Problem List: (1) G tube feedings ICD Codes: Z93.1 - Gastrostomy status SNOMED: 262168020, 590990804 (2) UTI (urinary tract infection) ICD Codes: N39.0 - Urinary tract infection, site not specified SNOMED: 29171920 (3) Seizure ICD Codes: R56.9 - Unspecified convulsions SNOMED: 32251031 (4) Altered mental status ICD Codes: R41.82 - Altered mental status, unspecified SNOMED: 889929092 Assessment/Plan s/p PEG placement GTF GT flush dc planning per primary team Subjective ROS Limited/Unobtainable: No Allergies: Coded Allergies: No Known Allergies (Unverified , 04/10/17) Objective Last 24 Hour Vital Signs Date Time Temp Pulse Resp B/P (MAP) Pulse Ox O2 Delivery O2 Flow Rate FiO2 04/22/17 09:00 77 139/73 04/22/17 08:38 97 Nasal Cannula 2.0 28 04/22/17 08:38 Nasal Cannula 2.0 28 04/22/17 08:35 164/94 04/22/17 08:33 85 164/94 04/22/17 08:00 97.3 85 18 164/94 98 Nasal Cannula 2.0 04/22/17 04:28 Nasal Cannula 2.0 04/22/17 04:04 97.9 83 20 154/83 99 04/22/17 02:17 Nasal Cannula 2.0 28 04/22/17 02:16 96 Nasal Cannula 2.0 28 04/22/17 00:26 97.9 80 20 145/70 98 04/22/17 00:00 Nasal Cannula 2.0 04/21/17 20:29 97.7 89 21 170/85 99 04/21/17 20:00 Nasal Cannula 2.0 04/21/17 18:35 87 132/84 04/21/17 16:00 97.7 87 20 132/84 99 Nasal Cannula 2.0 04/21/17 12:00 97.0 74 16 159/89 98 Nasal Cannula 2.0 Intake and Output 04/21/17 04/22/17 19:00 07:00 Intake Total 640 ml 960 ml Output Total 117 ml 225 ml Balance 523 ml 735 ml Free Water 100 ml 300 ml Tube Feeding 540 ml 660 ml Post Void Residual 117 ml 225 ml Bladder Scan Volume Amount 385ml 201-300 ml # Voids 4 Laboratory Tests 04/22/17 04:55: White Blood Count 5.5, Red Blood Count 4.14L, Hemoglobin 12.3L, Hematocrit 38.4L , Mean Corpuscular Volume 93, Mean Corpuscular Hemoglobin 29.7, Mean Corpuscular Hemoglobin Concent 32.0, Red Cell Distribution Width 15.6H, Platelet Count 309, Mean Platelet Volume 6.3L, Neutrophils (%) (Auto) 63.4, Lymphocytes (%) (Auto) 19.6L, Monocytes (%) (Auto) 12.4H, Eosinophils (%) (Auto ) 3.4H, Basophils (%) (Auto) 1.3, Sodium Level 145, Potassium Level 4.3, Chloride Level 108H, Carbon Dioxide Level 33H, Anion Gap 4L, Blood Urea Nitrogen 17, Creatinine 1.0, Estimat Glomerular Filtration Rate > 60, Glucose Level 114H, Calcium Level 8.2L Height (Feet): 6 Height (Inches): 1.00 Weight (Pounds): 146 General Appearance: no apparent distress EENT: normal ENT inspection Neck: supple Cardiovascular: normal rate Respiratory/Chest: decreased breath sounds Abdomen: normal bowel sounds, non tender, soft Extremities: non-tender ROBYN CROFT Apr 22, 2017 10:48
--- NOTE | 2017-04-22 11:30 | General Progress Note ---
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 sepsis, resolved MRI w CVA tolerates PEG feeds add hydralazine for BP SNF when bed available Subjective ROS Limited/Unobtainable: Yes Allergies: Coded Allergies: No Known Allergies (Unverified , 04/10/17) Objective Last 24 Hour Vital Signs Date Time Temp Pulse Resp B/P (MAP) Pulse Ox O2 Delivery O2 Flow Rate FiO2 04/22/17 09:00 77 139/73 04/22/17 08:38 97 Nasal Cannula 2.0 28 04/22/17 08:38 Nasal Cannula 2.0 28 04/22/17 08:35 164/94 04/22/17 08:33 85 164/94 04/22/17 08:00 97.3 85 18 164/94 98 Nasal Cannula 2.0 04/22/17 04:28 Nasal Cannula 2.0 04/22/17 04:04 97.9 83 20 154/83 99 04/22/17 02:17 Nasal Cannula 2.0 28 04/22/17 02:16 96 Nasal Cannula 2.0 28 04/22/17 00:26 97.9 80 20 145/70 98 04/22/17 00:00 Nasal Cannula 2.0 04/21/17 20:29 97.7 89 21 170/85 99 04/21/17 20:00 Nasal Cannula 2.0 04/21/17 18:35 87 132/84 04/21/17 16:00 97.7 87 20 132/84 99 Nasal Cannula 2.0 04/21/17 12:00 97.0 74 16 159/89 98 Nasal Cannula 2.0 Intake and Output 04/21/17 04/22/17 19:00 07:00 Intake Total 640 ml 960 ml Output Total 117 ml 225 ml Balance 523 ml 735 ml Free Water 100 ml 300 ml Tube Feeding 540 ml 660 ml Post Void Residual 117 ml 225 ml Bladder Scan Volume Amount 385ml 201-300 ml # Voids 4 Laboratory Tests 04/22/17 04:55: White Blood Count 5.5, Red Blood Count 4.14L, Hemoglobin 12.3L, Hematocrit 38.4L , Mean Corpuscular Volume 93, Mean Corpuscular Hemoglobin 29.7, Mean Corpuscular Hemoglobin Concent 32.0, Red Cell Distribution Width 15.6H, Platelet Count 309, Mean Platelet Volume 6.3L, Neutrophils (%) (Auto) 63.4, Lymphocytes (%) (Auto) 19.6L, Monocytes (%) (Auto) 12.4H, Eosinophils (%) (Auto ) 3.4H, Basophils (%) (Auto) 1.3, Sodium Level 145, Potassium Level 4.3, Chloride Level 108H, Carbon Dioxide Level 33H, Anion Gap 4L, Blood Urea Nitrogen 17, Creatinine 1.0, Estimat Glomerular Filtration Rate > 60, Glucose Level 114H, Calcium Level 8.2L Height (Feet): 6 Height (Inches): 1.00 Weight (Pounds): 146 General Appearance: no apparent distress Neck: supple Cardiovascular: normal rate Respiratory/Chest: rhonchi - bilaterally DOLORES GARCIA Apr 22, 2017 11:30
[2017-04-22] MEDS: LORazepam 1mg tab ORAL PRN ×2 (13:42→21:17)
[2017-04-22] MEDS: HydrALAZINE 25mg tab ORAL SCH ×2 (14:54→21:17)
[2017-04-22] MEDS: Albuterol ud Inhalation HHN SCH ×2 (15:00→19:50)
[2017-04-23] VITALS (7 sets, daily range): BP systolic 127–155; BP diastolic 71–94
[2017-04-23] MEDS: ZyPREXA Zydis 10mg tab ORAL SCH ×3 (05:02→20:14)
[2017-04-23] MEDS: Albuterol ud Inhalation HHN SCH ×4 (08:10→20:04)
[2017-04-23] MEDS: Aspirin Baby 81mg ORAL SCH (09:55)
[2017-04-23] MEDS: HydrALAZINE 25mg tab ORAL SCH ×2 (09:55→18:06)
[2017-04-23] MEDS: Losartan 50mg tab ORAL SCH (09:55)
--- NOTE | 2017-04-23 12:49 | General Progress Note ---
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 sepsis, resolved MRI w CVA OT/PT tolerates PEG feeds increase hydralazine for BP SNF when bed available Subjective ROS Limited/Unobtainable: Yes Allergies: Coded Allergies: No Known Allergies (Unverified , 04/10/17) Objective Last 24 Hour Vital Signs Date Time Temp Pulse Resp B/P (MAP) Pulse Ox O2 Delivery O2 Flow Rate FiO2 04/23/17 09:55 155/94 04/23/17 09:55 97 155/94 04/23/17 09:55 155/94 04/23/17 08:19 97 20 99 Nasal Cannula 2.0 28 04/23/17 08:11 99 Nasal Cannula 2.0 28 04/23/17 08:11 Nasal Cannula 2.0 28 04/23/17 08:10 98 20 99 Nasal Cannula 2.0 28 04/23/17 08:00 97.6 86 21 155/94 Nasal Cannula 2.0 04/23/17 04:00 97.5 79 20 127/84 100 04/23/17 00:00 Nasal Cannula 2.0 04/23/17 00:00 97.6 93 21 133/84 100 04/22/17 21:17 149/96 04/22/17 20:00 Nasal Cannula 2.0 04/22/17 20:00 85 20 98 Nasal Cannula 2.0 28 04/22/17 20:00 97.9 93 21 149/96 99 04/22/17 19:52 91 20 99 Nasal Cannula 2.0 28 04/22/17 19:51 99 Nasal Cannula 2.0 28 04/22/17 19:51 Nasal Cannula 2.0 28 04/22/17 17:18 93 137/75 04/22/17 16:00 97.7 89 21 137/75 100 Nasal Cannula 2.0 04/22/17 16:00 93 20 98 Nasal Cannula 2.0 28 04/22/17 15:50 88 20 94 Nasal Cannula 2.0 28 04/22/17 14:54 157/80 Intake and Output 04/22/17 04/23/17 19:00 07:00 Intake Total 60 ml 1020 ml Output Total 269 ml 117 ml Balance -209 ml 903 ml Free Water 300 ml Tube Feeding 60 ml 720 ml Post Void Residual 269 ml 117 ml Bladder Scan Volume Amount 151-200 ml 101-150 ml 76-100 ml # Voids 3 3 Height (Feet): 6 Height (Inches): 1.00 Weight (Pounds): 146 General Appearance: no apparent distress, confused, agitated Cardiovascular: normal rate Respiratory/Chest: lungs clear DOLORES GARCIA Apr 23, 2017 12:49
--- NOTE | 2017-04-23 14:57 | GI Progress Note ---
Assessment/Plan Problems: (1) G tube feedings ICD Codes: Z93.1 - Gastrostomy status SNOMED: 849085853, 756485272 (2) Altered mental status ICD Codes: R41.82 - Altered mental status, unspecified SNOMED: 704793547 (3) seizure disorder, exacerbation (4) Seizure ICD Codes: R56.9 - Unspecified convulsions SNOMED: 77823725 Status: unchanged Status Narrative Discussed with Dr. Gandara. Assessment/Plan s/p PEG placement GTF GT flush dc planning per primary team The patient was seen and examined at bedside and all new and available data was reviewed in the patients chart. I agree with the above findings, impression and plan. (Patient seen earlier today. Signature stamp does not reflect patient encounter time.). - Robert Gandara MD Subjective Subjective limited Objective Last 24 Hour Vital Signs Date Time Temp Pulse Resp B/P (MAP) Pulse Ox O2 Delivery O2 Flow Rate FiO2 04/23/17 09:55 155/94 04/23/17 09:55 97 155/94 04/23/17 09:55 155/94 04/23/17 08:19 97 20 99 Nasal Cannula 2.0 28 04/23/17 08:11 99 Nasal Cannula 2.0 28 04/23/17 08:11 Nasal Cannula 2.0 28 04/23/17 08:10 98 20 99 Nasal Cannula 2.0 28 04/23/17 08:00 97.6 86 21 155/94 Nasal Cannula 2.0 04/23/17 04:00 97.5 79 20 127/84 100 04/23/17 00:00 Nasal Cannula 2.0 04/23/17 00:00 97.6 93 21 133/84 100 04/22/17 21:17 149/96 04/22/17 20:00 Nasal Cannula 2.0 04/22/17 20:00 85 20 98 Nasal Cannula 2.0 28 04/22/17 20:00 97.9 93 21 149/96 99 04/22/17 19:52 91 20 99 Nasal Cannula 2.0 28 04/22/17 19:51 99 Nasal Cannula 2.0 28 04/22/17 19:51 Nasal Cannula 2.0 28 04/22/17 17:18 93 137/75 04/22/17 16:00 97.7 89 21 137/75 100 Nasal Cannula 2.0 04/22/17 16:00 93 20 98 Nasal Cannula 2.0 28 04/22/17 15:50 88 20 94 Nasal Cannula 2.0 28 Intake and Output 04/22/17 04/23/17 19:00 07:00 Intake Total 60 ml 1020 ml Output Total 269 ml 117 ml Balance -209 ml 903 ml Free Water 300 ml Tube Feeding 60 ml 720 ml Post Void Residual 269 ml 117 ml Bladder Scan Volume Amount 151-200 ml 101-150 ml 76-100 ml # Voids 3 3 Height (Feet): 6 Height (Inches): 1.00 Weight (Pounds): 146 General Appearance: no apparent distress, alert Cardiovascular: normal rate Respiratory/Chest: normal breath sounds, no respiratory distress Abdominal Exam: normal bowel sounds, non tender, soft, other Extremities: non-tender Imani Floyd N.P. Apr 23, 2017 14:57 ROBYN GANDARA Apr 30, 2017 12:20
[2017-04-23] MEDS: LORazepam 1mg tab ORAL PRN (20:14)
[2017-04-24] MEDS: HydrALAZINE 25mg tab ORAL SCH (03:11)
[2017-04-24 04:00] VITALS: BP 144/82
[2017-04-24] MEDS: LORazepam 1mg tab ORAL PRN ×2 (06:25→12:35)
[2017-04-24] MEDS: ZyPREXA Zydis 10mg tab ORAL SCH ×3 (06:25→21:01)
--- NOTE | 2017-04-24 06:28 | General Progress Note ---
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 sepsis, resolved MRI w CVA OT/PT tolerates PEG feeds adjust BP rx SNF when bed available Subjective ROS Limited/Unobtainable: Yes Allergies: Coded Allergies: No Known Allergies (Unverified , 04/10/17) Objective Last 24 Hour Vital Signs Date Time Temp Pulse Resp B/P (MAP) Pulse Ox O2 Delivery O2 Flow Rate FiO2 04/24/17 04:00 98.2 93 20 144/82 98 04/24/17 03:11 151/76 04/23/17 23:58 97.6 111 21 151/76 99 Nasal Cannula 04/23/17 20:15 89 20 100 Nasal Cannula 2.0 28 04/23/17 20:05 115 20 97 Nasal Cannula 2.0 28 04/23/17 20:04 Nasal Cannula 2.0 28 04/23/17 20:04 97 Nasal Cannula 2.0 28 04/23/17 20:00 99 Nasal Cannula 2.0 04/23/17 19:38 97.7 122 21 141/93 99 Nasal Cannula 04/23/17 18:06 155/82 04/23/17 18:06 102 155/82 04/23/17 16:00 97.7 87 21 133/71 99 Nasal Cannula 2.0 04/23/17 15:27 92 20 100 Nasal Cannula 2.0 28 04/23/17 15:20 95 20 97 Nasal Cannula 2.0 28 04/23/17 12:00 97.5 90 21 147/79 Nasal Cannula 2.0 04/23/17 09:55 155/94 04/23/17 09:55 97 155/94 04/23/17 09:55 155/94 04/23/17 08:19 97 20 99 Nasal Cannula 2.0 28 04/23/17 08:11 99 Nasal Cannula 2.0 28 04/23/17 08:11 Nasal Cannula 2.0 28 04/23/17 08:10 98 20 99 Nasal Cannula 2.0 28 04/23/17 08:00 97.6 86 21 155/94 Nasal Cannula 2.0 Intake and Output 04/23/17 04/24/17 19:00 07:00 Intake Total 840 ml 740 ml Output Total 511 ml 300 ml Balance 329 ml 440 ml Free Water 120 ml 200 ml Tube Feeding 720 ml 540 ml Post Void Residual 511 ml 300 ml Bladder Scan Volume Amount 201-300 ml 201-300 ml 201-300 ml # Voids 6 Laboratory Tests 04/24/17 05:00: White Blood Count [Pending], Red Blood Count [Pending], Hemoglobin [Pending], Hematocrit [Pending], Mean Corpuscular Volume [Pending], Mean Corpuscular Hemoglobin [Pending], Mean Corpuscular Hemoglobin Concent [Pending], Red Cell Distribution Width [Pending], Platelet Count [Pending], Mean Platelet Volume [ Pending], Neutrophils (%) (Auto) [Pending], Lymphocytes (%) (Auto) [Pending], Monocytes (%) (Auto) [Pending], Eosinophils (%) (Auto) [Pending], Basophils (%) (Auto) [Pending], Sodium Level [Pending], Potassium Level [Pending], Chloride Level [Pending], Carbon Dioxide Level [Pending], Blood Urea Nitrogen [Pending], Creatinine [Pending], Estimat Glomerular Filtration Rate [Pending], Glucose Level [Pending], Calcium Level [Pending] Height (Feet): 6 Height (Inches): 1.00 Weight (Pounds): 146 General Appearance: no apparent distress, confused, agitated Cardiovascular: normal rate Respiratory/Chest: lungs clear DOLORES GARCIA Apr 24, 2017 06:28
[2017-04-24 06:35] LABS: ANION GAP 6 mmol/L (5-15); BLOOD UREA NITROGEN 27 mg/dL (7-18); CALCIUM 8.1 MG/DL (8.5-10.1); CARBON DIOXIDE 31 MMOL/L (21-32); CHLORIDE 106 MMOL/L (98-107); CREATININE 1.2 MG/DL (0.55-1.30); POTASSIUM 4.5 MMOL/L (3.5-5.1); SODIUM 143 MMOL/L (136-145)
[2017-04-24 06:43] LABS: EOSINOPHILS % (AUTO) 1.4 % (0.0-3.0); HEMATOCRIT 39.6 % (42.0-52.0); HEMOGLOBIN 12.6 G/DL (14.2-18.0); LYMPHOCYTES % (AUTO) 10.5 % (20.0-45.0); MEAN CORPUSCULAR VOLUME 93 FL (80-99); MONOCYTES % (AUTO) 10.5 % (1.0-10.0); NEUTROPHILS % (AUTO) 76.6 % (45.0-75.0); PLATELET COUNT 347 K/UL (150-450); RED BLOOD COUNT 4.28 M/UL (4.70-6.10); RED CELL DISTRIBUTION WIDTH 15.5 % (11.6-14.8); WHITE BLOOD COUNT 9.8 K/UL (4.8-10.8)
[2017-04-24] MEDS: HydrALAZINE 50mg tab ORAL SCH ×3 (07:00→17:21)
[2017-04-24 08:00] VITALS: BP 114/52
[2017-04-24] MEDS: Albuterol ud Inhalation HHN SCH ×4 (08:03→20:17)
[2017-04-24] MEDS: Aspirin Baby 81mg ORAL SCH (08:06)
[2017-04-24] MEDS: Losartan 50mg tab ORAL SCH (09:00)
[2017-04-24 12:00] VITALS: BP 125/72
--- NOTE | 2017-04-24 13:12 | Infectious Diseases Prog Note ---
Assessment/Plan Assessment/Plan A; UTI with ESBL E. coli treated Acute lacunar CVA AMS Encephalopathy Seizure disorder HPN Gastrostomy status P; observe off antibiotic Waiting for bed in [facility] Frequent respiratory suctioning Subjective ROS Limited/Unobtainable: Yes Respiratory: Reports: productive cough, other - thick secretions Neurologic: Reports: confusion Allergies: Coded Allergies: No Known Allergies (Unverified , 04/10/17) Objective Vital Signs Last 24 Hour Vital Signs Date Time Temp Pulse Resp B/P (MAP) Pulse Ox O2 Delivery O2 Flow Rate FiO2 04/24/17 11:08 106 20 100 Nasal Cannula 2.0 28 04/24/17 11:05 101 20 97 Nasal Cannula 2.0 28 04/24/17 09:00 99 113/55 04/24/17 09:00 11355 04/24/17 08:00 97.9 99 21 114/52 99 Nasal Cannula 2.0 04/24/17 07:30 Nasal Cannula 2.0 28 04/24/17 07:30 100 20 100 Nasal Cannula 2.0 28 04/24/17 07:30 99 20 98 Nasal Cannula 2.0 28 04/24/17 07:30 98 Nasal Cannula 2.0 28 04/24/17 07:00 114/52 04/24/17 04:00 98.2 93 20 144/82 98 04/24/17 03:11 151/76 04/23/17 23:58 97.6 111 21 151/76 99 Nasal Cannula 04/23/17 20:15 89 20 100 Nasal Cannula 2.0 28 04/23/17 20:05 115 20 97 Nasal Cannula 2.0 28 04/23/17 20:04 Nasal Cannula 2.0 28 04/23/17 20:04 97 Nasal Cannula 2.0 28 04/23/17 20:00 99 Nasal Cannula 2.0 04/23/17 19:38 97.7 122 21 141/93 99 Nasal Cannula 04/23/17 18:06 155/82 04/23/17 18:06 102 155/82 04/23/17 16:00 97.7 87 21 133/71 99 Nasal Cannula 2.0 04/23/17 15:27 92 20 100 Nasal Cannula 2.0 28 04/23/17 15:20 95 20 97 Nasal Cannula 2.0 28 Height (Feet): 6 Height (Inches): 1.00 Weight (Pounds): 146 General Appearance: no acute distress HEENT: mucous membranes moist Respiratory/Chest: lungs clear Cardiovascular: tachycardia Abdomen: soft, non tender, other - GT feeding Neurologic/Psychiatric: disoriented Laboratory Tests Test 04/24/17 05:00 White Blood Count 9.8 K/UL (4.8-10.8) Red Blood Count 4.28 M/UL (4.70-6.10) L Hemoglobin 12.6 G/DL (14.2-18.0) L Hematocrit 39.6 % (42.0-52.0) L Mean Corpuscular Volume 93 FL (80-99) Mean Corpuscular Hemoglobin 29.4 PG (27.0-31.0) Mean Corpuscular Hemoglobin Concent 31.8 G/DL (32.0-36.0) L Red Cell Distribution Width 15.5 % (11.6-14.8) H Platelet Count 347 K/UL (150-450) Mean Platelet Volume 6.3 FL (6.5-10.1) L Neutrophils (%) (Auto) 76.6 % (45.0-75.0) H Lymphocytes (%) (Auto) 10.5 % (20.0-45.0) L Monocytes (%) (Auto) 10.5 % (1.0-10.0) H Eosinophils (%) (Auto) 1.4 % (0.0-3.0) Basophils (%) (Auto) 1.0 % (0.0-2.0) Sodium Level 143 MMOL/L (136-145) Potassium Level 4.5 MMOL/L (3.5-5.1) Chloride Level 106 MMOL/L (98-107) Carbon Dioxide Level 31 MMOL/L (21-32) Anion Gap 6 mmol/L (5-15) Blood Urea Nitrogen 27 mg/dL (7-18) H Creatinine 1.2 MG/DL (0.55-1.30) Estimat Glomerular Filtration Rate > 60 mL/min (>60) Glucose Level 127 MG/DL (74-106) H Calcium Level 8.1 MG/DL (8.5-10.1) L Current Medications Medications (Trade) Dose Ordered Sig/Miguel Angel Route PRN Reason Start Time Stop Time Status Last Admin Dose Admin Acetaminophen (Tylenol) 650 mg Q4H PRN ORAL Mild Pain/Temp > 100.5 04/15/17 17:45 05/10/17 13:44 Albuterol Sulfate (Proventil) 2.5 mg QID/D9DAICH HHN 04/22/17 15:00 04/27/17 14:59 04/24/17 11:06 Amlodipine Besylate (Norvasc) 5 mg BID ORAL 04/20/17 18:00 05/20/17 17:59 04/23/17 18:06 Aspirin (ASA) 81 mg DAILY ORAL 04/16/17 09:00 05/15/17 08:59 04/24/17 08:06 Hydralazine HCl (Apresoline) 75 mg Q6HR ORAL 04/24/17 07:00 05/24/17 06:59 Levetiracetam (Keppra) 1,500 mg Q12HR ORAL 04/20/17 21:00 05/20/17 20:59 04/24/17 08:06 Lorazepam (Ativan) 1 mg Q6H PRN ORAL For Anxiety 04/23/17 17:30 04/30/17 17:29 04/24/17 12:35 Losartan Potassium (Cozaar) 100 mg DAILY ORAL 04/19/17 09:30 05/19/17 09:29 04/23/17 09:55 Olanzapine (ZyPREXA Zydis) 10 mg Q8HR ORAL 04/15/17 22:00 05/15/17 12:59 04/24/17 06:25 Valproic Acid (Depakene) 500 mg TWICE A DAY ORAL 04/20/17 18:00 05/20/17 17:59 04/24/17 08:16 LUCRETIA MURPHY Apr 24, 2017 13:12
[2017-04-24 16:00] VITALS: BP 141/67
[2017-04-24 19:39] VITALS: BP 108/53
--- NOTE | 2017-04-24 19:42 | General Progress Note ---
Assessment/Plan Assessment/Plan Assessment - CVA - Encephalopathy - s/p PEG - mild anemia - mild abnormal AST - likely from CVA Plans - check Hep serologies --> negative - GT care - elevate HOB - continue ASA Subjective Allergies: Coded Allergies: No Known Allergies (Unverified , 04/10/17) Subjective above noted Tolerating TF non communicative Objective Last 24 Hour Vital Signs Date Time Temp Pulse Resp B/P (MAP) Pulse Ox O2 Delivery O2 Flow Rate FiO2 04/24/17 17:21 141/67 04/24/17 17:09 98 141/67 04/24/17 16:00 97.9 96 18 141/67 99 Nasal Cannula 2.0 04/24/17 15:44 104 20 100 Nasal Cannula 2.0 04/24/17 15:44 99 20 97 Nasal Cannula 2.0 28 04/24/17 13:49 125/72 04/24/17 12:00 97.6 80 20 125/72 99 Nasal Cannula 2.0 04/24/17 11:08 106 20 100 Nasal Cannula 2.0 04/24/17 11:05 101 20 97 Nasal Cannula 2.0 04/24/17 09:00 99 113/55 04/24/17 09:00 113/55 04/24/17 08:00 97.9 99 21 114/52 99 Nasal Cannula 2.0 04/24/17 07:30 Nasal Cannula 2.0 04/24/17 07:30 100 20 100 Nasal Cannula 2.0 28 04/24/17 07:30 99 20 98 Nasal Cannula 2.0 04/24/17 07:30 98 Nasal Cannula 2.0 04/24/17 07:00 114/52 04/24/17 04:00 98.2 93 20 144/82 98 04/24/17 03:11 151/76 04/23/17 23:58 97.6 111 21 151/76 99 Nasal Cannula 04/23/17 20:15 89 20 100 Nasal Cannula 2.0 04/23/17 20:05 115 20 97 Nasal Cannula 2.0 04/23/17 20:04 Nasal Cannula 2.0 28 04/23/17 20:04 97 Nasal Cannula 2.0 04/23/17 20:00 99 Nasal Cannula 2.0 Intake and Output 04/23/17 04/24/17 19:00 07:00 Intake Total 840 ml 1020 ml Output Total 511 ml 300 ml Balance 329 ml 720 ml Free Water 120 ml 300 ml Tube Feeding 720 ml 720 ml Post Void Residual 511 ml 300 ml Bladder Scan Volume Amount 201-300 ml 201-300 ml 201-300 ml # Voids 6 Laboratory Tests 04/24/17 05:00: White Blood Count 9.8, Red Blood Count 4.28L, Hemoglobin 12.6L, Hematocrit 39.6L , Mean Corpuscular Volume 93, Mean Corpuscular Hemoglobin 29.4, Mean Corpuscular Hemoglobin Concent 31.8L, Red Cell Distribution Width 15.5H, Platelet Count 347, Mean Platelet Volume 6.3L, Neutrophils (%) (Auto) 76.6H, Lymphocytes (%) (Auto) 10.5L, Monocytes (%) (Auto) 10.5H, Eosinophils (%) (Auto ) 1.4, Basophils (%) (Auto) 1.0, Sodium Level 143, Potassium Level 4.5, Chloride Level 106, Carbon Dioxide Level 31, Anion Gap 6, Blood Urea Nitrogen 27H, Creatinine 1.2, Estimat Glomerular Filtration Rate > 60, Glucose Level 127H , Calcium Level 8.1L Height (Feet): 6 Height (Inches): 1.00 Weight (Pounds): 146 Objective Thin WM NCAT Supple CTA RR Soft ND NT, (+) GT no edema confused, restless, moves all four SAMMI CRUM Apr 24, 2017 19:42
[2017-04-25 00:06] VITALS: BP 135/94
[2017-04-25] MEDS: HydrALAZINE 50mg tab ORAL SCH ×4 (01:09→17:30)
[2017-04-25] MEDS: LORazepam 1mg tab ORAL PRN (02:52)
[2017-04-25 04:00] VITALS: BP 130/76
[2017-04-25] MEDS: ZyPREXA Zydis 10mg tab ORAL SCH ×3 (05:38→20:03)
[2017-04-25] MEDS: Albuterol ud Inhalation HHN SCH ×4 (07:44→20:03)
[2017-04-25 08:00] VITALS: BP 141/74
[2017-04-25] MEDS: Aspirin Baby 81mg ORAL SCH (08:47)
[2017-04-25] MEDS: Losartan 50mg tab ORAL SCH (08:48)
[2017-04-25 08:50] LABS: ALANINE AMINOTRANSFERASE 13 U/L (12-78); ALBUMIN 2.7 G/DL (3.4-5.0); ALBUMIN/GLOBULIN RATIO 0.8 (1.0-2.7); ALKALINE PHOSPHATASE 69 U/L (46-116); ANION GAP 7 mmol/L (5-15); ASPARTATE AMINO TRANSFERASE 16 U/L (15-37); BILIRUBIN,TOTAL 0.4 MG/DL (0.2-1.0); BLOOD UREA NITROGEN 33 mg/dL (7-18); CALCIUM 7.8 MG/DL (8.5-10.1); CARBON DIOXIDE 31 MMOL/L (21-32); CHLORIDE 106 MMOL/L (98-107); CREATININE 1.2 MG/DL (0.55-1.30); POTASSIUM 4.6 MMOL/L (3.5-5.1); SODIUM 144 MMOL/L (136-145)
--- NOTE | 2017-04-25 10:26 | General Progress Note ---
Assessment/Plan Status: stable, progressing Assessment/Plan encephalopathy agitation dc thorazine zyprexa Subjective Date patient seen: Apr 23, 2017 Allergies: Coded Allergies: No Known Allergies (Unverified , 04/10/17) Subjective calm during my eval. became agitated during the evening. Objective Last 24 Hour Vital Signs Date Time Temp Pulse Resp B/P (MAP) Pulse Ox O2 Delivery O2 Flow Rate FiO2 04/25/17 08:48 141/74 04/25/17 08:46 103 141/74 04/25/17 08:07 103 22 100 Nasal Cannula 2.0 04/25/17 08:00 97.6 97 141/74 99 Nasal Cannula 2.0 04/25/17 07:46 Nasal Cannula 2.0 04/25/17 07:46 99 Nasal Cannula 2.0 04/25/17 07:44 95 22 99 Nasal Cannula 2.0 04/25/17 05:38 130/76 04/25/17 04:00 95 Nasal Cannula 2.0 04/25/17 04:00 97.9 82 20 130/76 95 04/25/17 01:09 135/94 04/25/17 00:06 97.3 97 20 135/94 98 Nasal Cannula 2.0 04/24/17 20:35 99 22 100 Nasal Cannula 2.0 04/24/17 20:18 Nasal Cannula 2.0 04/24/17 20:18 98 Nasal Cannula 2.0 04/24/17 20:17 97 21 97 Nasal Cannula 2.0 04/24/17 20:00 99 Nasal Cannula 2.0 04/24/17 19:39 98.1 92 20 108/53 99 Nasal Cannula 2.0 04/24/17 17:21 141/67 04/24/17 17:09 98 141/67 04/24/17 16:00 97.9 96 18 141/67 99 Nasal Cannula 2.0 04/24/17 15:44 104 20 100 Nasal Cannula 2.0 04/24/17 15:44 99 20 97 Nasal Cannula 2.0 04/24/17 13:49 125/72 04/24/17 12:00 97.6 80 20 125/72 99 Nasal Cannula 2.0 04/24/17 11:08 106 20 100 Nasal Cannula 2.0 04/24/17 11:05 101 20 97 Nasal Cannula 2.0 28 Intake and Output 04/24/17 04/25/17 19:00 07:00 Intake Total 970 ml 1120 ml Output Total 170 ml 152 ml Balance 800 ml 968 ml Free Water 250 ml 400 ml Tube Feeding 720 ml 720 ml Post Void Residual 170 ml 152 ml Bladder Scan Volume Amount 51-75 ml 151-200 ml 101-150 ml # Voids 8 Laboratory Tests 04/25/17 07:10: Sodium Level 144, Potassium Level 4.6, Chloride Level 106, Carbon Dioxide Level 31, Anion Gap 7, Blood Urea Nitrogen 33H, Creatinine 1.2, Estimat Glomerular Filtration Rate > 60, Glucose Level 121H, Calcium Level 7.8L, Total Bilirubin 0.4, Aspartate Amino Transf (AST/SGOT) 16, Alanine Aminotransferase (ALT/SGPT) 13, Alkaline Phosphatase 69, Total Protein 6.0L, Albumin 2.7L, Globulin 3.3, Albumin/Globulin Ratio 0.8L Height (Feet): 6 Height (Inches): 1.00 Weight (Pounds): 146 Fiordaliza Koehler M.D. Apr 25, 2017 10:26
[2017-04-25 12:00] VITALS: BP 143/62
--- NOTE | 2017-04-25 15:25 | General Progress Note ---
Assessment/Plan Status: not improved, unchanged Assessment/Plan encephalopathy agitation d/w brother paulette Subjective Date patient seen: Apr 25, 2017 Neurologic/Psychiatric: Reports: anxiety, emotional problems Allergies: Coded Allergies: No Known Allergies (Unverified , 04/10/17) Subjective the pt cont to be agitated however he is manageable 1:1 sitter Objective Last 24 Hour Vital Signs Date Time Temp Pulse Resp B/P (MAP) Pulse Ox O2 Delivery O2 Flow Rate FiO2 04/25/17 12:55 143/62 04/25/17 12:00 97.8 104 143/62 98 Nasal Cannula 2.0 04/25/17 11:28 99 20 100 Nasal Cannula 2.0 04/25/17 11:23 96 18 98 Nasal Cannula 2.0 04/25/17 08:48 141/74 04/25/17 08:46 103 141/74 04/25/17 08:07 103 22 100 Nasal Cannula 2.0 04/25/17 08:00 97.6 97 141/74 99 Nasal Cannula 2.0 04/25/17 07:46 Nasal Cannula 2.0 04/25/17 07:46 99 Nasal Cannula 2.0 04/25/17 07:44 95 22 99 Nasal Cannula 2.0 04/25/17 05:38 130/76 04/25/17 04:00 95 Nasal Cannula 2.0 04/25/17 04:00 97.9 82 20 130/76 95 04/25/17 01:09 135/94 04/25/17 00:06 97.3 97 20 135/94 98 Nasal Cannula 2.0 04/24/17 20:35 99 22 100 Nasal Cannula 2.0 04/24/17 20:18 Nasal Cannula 2.0 04/24/17 20:18 98 Nasal Cannula 2.0 04/24/17 20:17 97 21 97 Nasal Cannula 2.0 04/24/17 20:00 99 Nasal Cannula 2.0 04/24/17 19:39 98.1 92 20 108/53 99 Nasal Cannula 2.0 04/24/17 17:21 141/67 04/24/17 17:09 98 141/67 04/24/17 16:00 97.9 96 18 141/67 99 Nasal Cannula 2.0 04/24/17 15:44 104 20 100 Nasal Cannula 2.0 28 04/24/17 15:44 99 20 97 Nasal Cannula 2.0 28 Intake and Output 04/24/17 04/25/17 19:00 07:00 Intake Total 970 ml 1120 ml Output Total 170 ml 152 ml Balance 800 ml 968 ml Free Water 250 ml 400 ml Tube Feeding 720 ml 720 ml Post Void Residual 170 ml 152 ml Bladder Scan Volume Amount 51-75 ml 151-200 ml 101-150 ml # Voids 8 Laboratory Tests 04/25/17 07:10: Sodium Level 144, Potassium Level 4.6, Chloride Level 106, Carbon Dioxide Level 31, Anion Gap 7, Blood Urea Nitrogen 33H, Creatinine 1.2, Estimat Glomerular Filtration Rate > 60, Glucose Level 121H, Calcium Level 7.8L, Total Bilirubin 0.4, Aspartate Amino Transf (AST/SGOT) 16, Alanine Aminotransferase (ALT/SGPT) 13, Alkaline Phosphatase 69, Total Protein 6.0L, Albumin 2.7L, Globulin 3.3, Albumin/Globulin Ratio 0.8L Height (Feet): 6 Height (Inches): 1.00 Weight (Pounds): 146 General Appearance: lethargic, confused, agitated Neurologic: disoriented, unresponsive Fiordaliza Koehler M.D. Apr 25, 2017 15:25
--- NOTE | 2017-04-25 15:52 | General Progress Note ---
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 sepsis, resolved MRI w CVA OT/PT tolerates PEG feeds adjust BP rx SNF when bed available DNR per discussion w brother hospice consult Subjective ROS Limited/Unobtainable: Yes Allergies: Coded Allergies: No Known Allergies (Unverified , 04/10/17) Objective Last 24 Hour Vital Signs Date Time Temp Pulse Resp B/P (MAP) Pulse Ox O2 Delivery O2 Flow Rate FiO2 04/25/17 15:45 95 18 98 Nasal Cannula 2.0 28 04/25/17 12:55 143/62 04/25/17 12:00 97.8 104 143/62 98 Nasal Cannula 2.0 04/25/17 11:28 99 20 100 Nasal Cannula 2.0 04/25/17 11:23 96 18 98 Nasal Cannula 2.0 04/25/17 08:48 141/74 04/25/17 08:46 103 141/74 04/25/17 08:07 103 22 100 Nasal Cannula 2.0 04/25/17 08:00 97.6 97 141/74 99 Nasal Cannula 2.0 04/25/17 07:46 Nasal Cannula 2.0 28 04/25/17 07:46 99 Nasal Cannula 2.0 28 04/25/17 07:44 95 22 99 Nasal Cannula 2.0 04/25/17 05:38 130/76 04/25/17 04:00 95 Nasal Cannula 2.0 04/25/17 04:00 97.9 82 20 130/76 95 04/25/17 01:09 135/94 04/25/17 00:06 97.3 97 20 135/94 98 Nasal Cannula 2.0 04/24/17 20:35 99 22 100 Nasal Cannula 2.0 04/24/17 20:18 Nasal Cannula 2.0 28 04/24/17 20:18 98 Nasal Cannula 2.0 04/24/17 20:17 97 21 97 Nasal Cannula 2.0 04/24/17 20:00 99 Nasal Cannula 2.0 04/24/17 19:39 98.1 92 20 108/53 99 Nasal Cannula 2.0 04/24/17 17:21 141/67 04/24/17 17:09 98 141/67 04/24/17 16:00 97.9 96 18 141/67 99 Nasal Cannula 2.0 Intake and Output 04/24/17 04/25/17 19:00 07:00 Intake Total 970 ml 1120 ml Output Total 170 ml 152 ml Balance 800 ml 968 ml Free Water 250 ml 400 ml Tube Feeding 720 ml 720 ml Post Void Residual 170 ml 152 ml Bladder Scan Volume Amount 51-75 ml 151-200 ml 101-150 ml # Voids 8 Laboratory Tests 04/25/17 07:10: Sodium Level 144, Potassium Level 4.6, Chloride Level 106, Carbon Dioxide Level 31, Anion Gap 7, Blood Urea Nitrogen 33H, Creatinine 1.2, Estimat Glomerular Filtration Rate > 60, Glucose Level 121H, Calcium Level 7.8L, Total Bilirubin 0.4, Aspartate Amino Transf (AST/SGOT) 16, Alanine Aminotransferase (ALT/SGPT) 13, Alkaline Phosphatase 69, Total Protein 6.0L, Albumin 2.7L, Globulin 3.3, Albumin/Globulin Ratio 0.8L Height (Feet): 6 Height (Inches): 1.00 Weight (Pounds): 146 General Appearance: no apparent distress Neck: supple Cardiovascular: normal rate Respiratory/Chest: lungs clear DOLORES GARCIA Apr 25, 2017 15:52
[2017-04-25 16:00] VITALS: BP 142/42
[2017-04-25 20:00] VITALS: BP 141/71
--- NOTE | 2017-04-25 22:45 | General Progress Note ---
Assessment/Plan Assessment/Plan Assessment - CVA - Encephalopathy - s/p PEG - mild anemia - mild abnormal AST - likely from CVA Plans - check Hep serologies --> negative - GT care - elevate HOB - continue ASA Subjective Allergies: Coded Allergies: No Known Allergies (Unverified , 04/10/17) Subjective above noted Tolerating TF non communicative Objective Last 24 Hour Vital Signs Date Time Temp Pulse Resp B/P (MAP) Pulse Ox O2 Delivery O2 Flow Rate FiO2 04/25/17 20:00 98.2 107 20 141/71 99 04/25/17 19:45 99 Nasal Cannula 2.0 04/25/17 19:45 Nasal Cannula 2.0 04/25/17 19:45 106 20 100 Nasal Cannula 2.0 04/25/17 19:40 107 20 97 Nasal Cannula 2.0 04/25/17 17:30 142/42 04/25/17 17:29 103 142/42 04/25/17 16:00 98.0 103 142/42 97 Nasal Cannula 2.0 04/25/17 15:51 105 20 100 Nasal Cannula 2.0 04/25/17 15:45 95 18 98 Nasal Cannula 2.0 04/25/17 12:55 143/62 04/25/17 12:00 97.8 104 143/62 98 Nasal Cannula 2.0 04/25/17 11:28 99 20 100 Nasal Cannula 2.0 04/25/17 11:23 96 18 98 Nasal Cannula 2.0 04/25/17 08:48 141/74 04/25/17 08:46 103 141/74 04/25/17 08:07 103 22 100 Nasal Cannula 2.0 04/25/17 08:00 97.6 97 141/74 99 Nasal Cannula 2.0 04/25/17 07:46 Nasal Cannula 2.0 04/25/17 07:46 99 Nasal Cannula 2.0 04/25/17 07:44 95 22 99 Nasal Cannula 2.0 04/25/17 05:38 130/76 04/25/17 04:00 95 Nasal Cannula 2.0 04/25/17 04:00 97.9 82 20 130/76 95 04/25/17 01:09 135/94 04/25/17 00:06 97.3 97 20 135/94 98 Nasal Cannula 2.0 Intake and Output 04/24/17 04/25/17 19:00 07:00 Intake Total 970 ml 1120 ml Output Total 170 ml 152 ml Balance 800 ml 968 ml Free Water 250 ml 400 ml Tube Feeding 720 ml 720 ml Post Void Residual 170 ml 152 ml Bladder Scan Volume Amount 51-75 ml 151-200 ml 101-150 ml # Voids 8 Laboratory Tests 04/25/17 07:10: Sodium Level 144, Potassium Level 4.6, Chloride Level 106, Carbon Dioxide Level 31, Anion Gap 7, Blood Urea Nitrogen 33H, Creatinine 1.2, Estimat Glomerular Filtration Rate > 60, Glucose Level 121H, Calcium Level 7.8L, Total Bilirubin 0.4, Aspartate Amino Transf (AST/SGOT) 16, Alanine Aminotransferase (ALT/SGPT) 13, Alkaline Phosphatase 69, Total Protein 6.0L, Albumin 2.7L, Globulin 3.3, Albumin/Globulin Ratio 0.8L Height (Feet): 6 Height (Inches): 1.00 Weight (Pounds): 146 Objective Thin WM NCAT Supple CTA RR Soft ND NT, (+) GT no edema confused, restless, moves all four SAMMI CRUM Apr 25, 2017 22:45
[2017-04-25] MEDS ORDERED: Sterile Water Irrig 1000ml IRRIG ONE (22:56)
[2017-04-26] VITALS: BP 127/74
[2017-04-26] MEDS: HydrALAZINE 50mg tab ORAL SCH ×4 (00:37→17:39)
[2017-04-26 04:00] VITALS: BP 126/62
[2017-04-26] MEDS: ZyPREXA Zydis 10mg tab ORAL SCH ×3 (05:25→21:53)
[2017-04-26] MEDS: Albuterol ud Inhalation HHN SCH ×4 (07:07→21:21)
[2017-04-26 08:10] VITALS: BP 130/70
[2017-04-26] MEDS: Losartan 50mg tab ORAL SCH (08:56)
[2017-04-26] MEDS: Aspirin Baby 81mg ORAL SCH (08:57)
[2017-04-26 11:37] VITALS: BP 134/75
--- NOTE | 2017-04-26 13:06 | Infectious Diseases Prog Note ---
Assessment/Plan Assessment/Plan A; UTI with ESBL E. coli treated Acute lacunar CVA AMS Encephalopathy Seizure disorder HPN Gastrostomy status P; observe off antibiotic Waiting for placement Frequent respiratory suctioning Subjective ROS Limited/Unobtainable: Yes Respiratory: Reports: productive cough Neurologic: Reports: confusion Allergies: Coded Allergies: No Known Allergies (Unverified , 04/10/17) Objective Vital Signs Last 24 Hour Vital Signs Date Time Temp Pulse Resp B/P (MAP) Pulse Ox O2 Delivery O2 Flow Rate FiO2 04/26/17 11:37 98.1 84 20 134/75 95 04/26/17 11:27 95 20 98 Nasal Cannula 2.0 04/26/17 11:19 95 20 96 Nasal Cannula 2.0 04/26/17 08:57 98 130/70 04/26/17 08:56 130/70 04/26/17 08:10 98.8 98 20 130/70 98 Nasal Cannula 04/26/17 07:16 96 20 98 Nasal Cannula 2.0 04/26/17 07:08 96 20 98 Nasal Cannula 2.0 04/26/17 07:08 Nasal Cannula 2.0 04/26/17 07:08 98 Nasal Cannula 2.0 04/26/17 05:36 122/72 04/26/17 04:00 98 Nasal Cannula 2.0 04/26/17 04:00 98.2 98 19 126/62 97 04/26/17 00:37 127/74 04/26/17 00:00 99.0 114 20 127/74 96 04/25/17 20:00 98.2 107 20 141/71 99 04/25/17 19:45 99 Nasal Cannula 2.0 04/25/17 19:45 Nasal Cannula 2.0 04/25/17 19:45 106 20 100 Nasal Cannula 2.0 04/25/17 19:40 107 20 97 Nasal Cannula 2.0 04/25/17 17:30 142/42 04/25/17 17:29 103 142/42 04/25/17 16:00 98.0 103 142/42 97 Nasal Cannula 2.0 04/25/17 15:51 105 20 100 Nasal Cannula 2.0 04/25/17 15:45 95 18 98 Nasal Cannula 2.0 Height (Feet): 6 Height (Inches): 1.00 Weight (Pounds): 146 General Appearance: no acute distress HEENT: mucous membranes moist Respiratory/Chest: lungs clear Cardiovascular: normal rate Abdomen: soft, non tender, other - GT feeding Neurologic/Psychiatric: disoriented Current Medications Medications (Trade) Dose Ordered Sig/Miguel Angel Route PRN Reason Start Time Stop Time Status Last Admin Dose Admin Acetaminophen (Tylenol) 650 mg Q4H PRN ORAL Mild Pain/Temp > 100.5 04/15/17 17:45 05/10/17 13:44 Albuterol Sulfate (Proventil) 2.5 mg QID/[id number] HHN 04/22/17 15:00 04/27/17 14:59 04/26/17 11:18 Amlodipine Besylate (Norvasc) 5 mg BID ORAL 04/20/17 18:00 05/20/17 17:59 04/26/17 08:57 Aspirin (ASA) 81 mg DAILY ORAL 04/16/17 09:00 05/15/17 08:59 04/26/17 08:57 Hydralazine HCl (Apresoline) 75 mg Q6HR ORAL 04/24/17 07:00 05/24/17 06:59 04/26/17 05:36 Levetiracetam (Keppra) 1,500 mg Q12HR ORAL 04/20/17 21:00 05/20/17 20:59 04/26/17 08:57 Lorazepam (Ativan) 1 mg Q6H PRN ORAL For Anxiety 04/23/17 17:30 04/30/17 17:29 04/25/17 02:52 Losartan Potassium (Cozaar) 100 mg DAILY ORAL 04/19/17 09:30 05/19/17 09:29 04/26/17 08:56 Olanzapine (ZyPREXA Zydis) 10 mg Q8HR ORAL 04/15/17 22:00 05/15/17 12:59 04/26/17 05:25 Valproic Acid (Depakene) 500 mg TWICE A DAY ORAL 04/20/17 18:00 05/20/17 17:59 04/26/17 08:56 LUCRETIA MURPHY Apr 26, 2017 13:06
[2017-04-26] MEDS ORDERED: ATIVAN1 MG ORAL (14:09)
[2017-04-26] MEDS ORDERED: ASPIRIN81 MG ORAL (14:09)
[2017-04-26] MEDS ORDERED: DEPAKENE250 MG ORAL (14:09)
[2017-04-26] MEDS ORDERED: KEPPRA500 M3 ORAL (14:09)
[2017-04-26] MEDS ORDERED: APRESOLINE50 MG ORAL (14:09)
[2017-04-26] MEDS ORDERED: ZYPREXA ZYDIS10 MG ORAL (14:09)
[2017-04-26] MEDS ORDERED: ASPIR 8181 MG ORAL (14:55)
[2017-04-26] MEDS ORDERED: HYDRALAZINE HCL50 MG ORAL (14:57)
[2017-04-26] MEDS ORDERED: LEVETIRACETAM500 MG ORAL (15:00)
[2017-04-26] MEDS ORDERED: LORAZEPAM1 MG ORAL (15:04)
[2017-04-26] MEDS ORDERED: ZYPREXA10 MG ORAL (15:07)
[2017-04-26] MEDS ORDERED: VALPROIC ACID250 MG PO (15:08)
[2017-04-26 16:00] VITALS: BP 132/76
--- NOTE | 2017-04-26 19:20 | General Progress Note ---
Assessment/Plan Assessment/Plan Assessment - CVA - Encephalopathy - s/p PEG - mild anemia - mild abnormal AST - likely from CVA Plans - check Hep serologies --> negative - GT care - elevate HOB - continue ASA Subjective Allergies: Coded Allergies: No Known Allergies (Unverified , 04/10/17) Subjective above noted Tolerating TF non communicative Objective Last 24 Hour Vital Signs Date Time Temp Pulse Resp B/P (MAP) Pulse Ox O2 Delivery O2 Flow Rate FiO2 04/26/17 17:39 132/76 04/26/17 17:36 109 132/76 04/26/17 16:00 98.2 109 20 132/76 96 04/26/17 15:37 100 20 94 04/26/17 15:30 100 20 94 Room Air 04/26/17 13:09 134/75 04/26/17 11:37 98.1 84 20 134/75 95 04/26/17 11:27 95 20 98 Nasal Cannula 2.0 04/26/17 11:19 95 20 96 Nasal Cannula 2.0 04/26/17 08:57 98 130/70 04/26/17 08:56 130/70 04/26/17 08:10 98.8 98 20 130/70 98 Nasal Cannula 04/26/17 07:16 96 20 98 Nasal Cannula 2.0 04/26/17 07:08 96 20 98 Nasal Cannula 2.0 04/26/17 07:08 Nasal Cannula 2.0 04/26/17 07:08 98 Nasal Cannula 2.0 04/26/17 05:36 122/72 04/26/17 04:00 98 Nasal Cannula 2.0 04/26/17 04:00 98.2 98 19 126/62 97 04/26/17 00:37 127/74 04/26/17 00:00 99.0 114 20 127/74 96 04/25/17 20:00 98.2 107 20 141/71 99 04/25/17 19:45 99 Nasal Cannula 2.0 04/25/17 19:45 Nasal Cannula 2.0 04/25/17 19:45 106 20 100 Nasal Cannula 2.0 04/25/17 19:40 107 20 97 Nasal Cannula 2.0 28 Intake and Output 04/25/17 04/26/17 19:00 07:00 Intake Total 60 ml 960 ml Output Total 292 ml 166 ml Balance -232 ml 794 ml Free Water 300 ml Tube Feeding 60 ml 660 ml Post Void Residual 292 ml 166 ml Bladder Scan Volume Amount 151-200 ml 151-200 ml 76-100 ml # Voids 4 Height (Feet): 6 Height (Inches): 1.00 Weight (Pounds): 146 Objective Thin WM NCAT Supple CTA RR Soft ND NT, (+) GT no edema confused, restless, moves all four SAMMI CRUM Apr 26, 2017 19:20
[2017-04-26 20:00] VITALS: BP 116/60
--- NOTE | 2017-04-26 23:04 | General Progress Note ---
Assessment/Plan Assessment/Plan encephalopathy agitation d/w brother zypcelia Subjective Date patient seen: Apr 26, 2017 Allergies: Coded Allergies: No Known Allergies (Unverified , 04/10/17) Subjective the pt cont to be agitated however he is manageable 1:1 sitter Objective Last 24 Hour Vital Signs Date Time Temp Pulse Resp B/P (MAP) Pulse Ox O2 Delivery O2 Flow Rate FiO2 04/26/17 21:33 98 20 96 Nasal Cannula 2.0 04/26/17 21:25 Nasal Cannula 2.0 04/26/17 21:21 Nasal Cannula 2.0 04/26/17 21:21 98 Nasal Cannula 2.0 04/26/17 21:21 92 20 94 Room Air 2.0 04/26/17 20:00 99.3 93 20 116/60 95 04/26/17 17:39 132/76 04/26/17 17:36 109 132/76 04/26/17 16:00 98.2 109 20 132/76 96 04/26/17 15:37 100 20 94 04/26/17 15:30 100 20 94 Room Air 04/26/17 13:09 134/75 04/26/17 11:37 98.1 84 20 134/75 95 04/26/17 11:27 95 20 98 Nasal Cannula 2.0 04/26/17 11:19 95 20 96 Nasal Cannula 2.0 04/26/17 08:57 98 130/70 04/26/17 08:56 130/70 04/26/17 08:10 98.8 98 20 130/70 98 Nasal Cannula 04/26/17 07:16 96 20 98 Nasal Cannula 2.0 04/26/17 07:08 96 20 98 Nasal Cannula 2.0 04/26/17 07:08 Nasal Cannula 2.0 04/26/17 07:08 98 Nasal Cannula 2.0 04/26/17 05:36 122/72 04/26/17 04:00 98 Nasal Cannula 2.0 04/26/17 04:00 98.2 98 19 126/62 97 04/26/17 00:37 127/74 04/26/17 00:00 99.0 114 20 127/74 96 Intake and Output 04/25/17 04/26/17 19:00 07:00 Intake Total 870 ml 1020 ml Output Total 292 ml 166 ml Balance 578 ml 854 ml Free Water 150 ml 300 ml Tube Feeding 720 ml 720 ml Post Void Residual 292 ml 166 ml Bladder Scan Volume Amount 151-200 ml 151-200 ml 76-100 ml # Voids 4 Height (Feet): 6 Height (Inches): 1.00 Weight (Pounds): 146 Fiordaliza Koehler M.D. Apr 26, 2017 23:04
[2017-04-27] VITALS: BP 126/61
[2017-04-27] MEDS: HydrALAZINE 50mg tab ORAL SCH ×2 (01:08→06:10)
[2017-04-27 04:15] VITALS: BP 114/61
[2017-04-27 06:02] VITALS: BP 137/64
[2017-04-27] MEDS: ZyPREXA Zydis 10mg tab ORAL SCH (06:10)
[2017-04-27] MEDS: Albuterol ud Inhalation HHN SCH (07:39)
[2017-04-27 07:44] VITALS: BP 127/65
[2017-04-27] MEDS: Aspirin Baby 81mg ORAL SCH (09:26)
[2017-04-27 09:27] VITALS: BP 127/65
[2017-04-27] MEDS: Losartan 50mg tab ORAL SCH (09:27)
[2017-04-27] MEDS ORDERED: Sterile Water Irrig 1000ml IRRIG ONE (10:43)
--- NOTE | 2017-04-27 21:14 | General Progress Note ---
Assessment/Plan Assessment/Plan Assessment - CVA - Encephalopathy - s/p PEG - mild anemia - mild abnormal AST - likely from CVA Plans - check Hep serologies --> negative - GT care - elevate HOB - continue ASA - d/c planning Subjective Allergies: Coded Allergies: No Known Allergies (Unverified , 04/10/17) Subjective above noted seen this am prior to d/c Tolerating TF non communicative Objective Last 24 Hour Vital Signs Date Time Temp Pulse Resp B/P (MAP) Pulse Ox O2 Delivery O2 Flow Rate FiO2 04/27/17 09:27 127/65 04/27/17 09:26 92 127/65 04/27/17 07:44 98.0 92 21 127/65 99 04/27/17 07:28 97 20 98 Nasal Cannula 2.0 28 04/27/17 07:28 Nasal Cannula 2.0 28 04/27/17 07:20 93 20 94 Room Air 2.0 28 04/27/17 07:15 94 Nasal Cannula 2.0 28 04/27/17 06:10 137/64 04/27/17 06:02 96 137/64 04/27/17 04:19 Nasal Cannula 2.0 04/27/17 04:15 97.9 94 20 114/61 96 04/27/17 01:08 126/61 04/27/17 00:39 Nasal Cannula 2.0 04/27/17 00:00 98.2 96 20 126/61 98 04/26/17 21:33 98 20 96 Nasal Cannula 2.0 28 04/26/17 21:25 Nasal Cannula 2.0 04/26/17 21:21 Nasal Cannula 2.0 04/26/17 21:21 98 Nasal Cannula 2.0 04/26/17 21:21 92 20 94 Room Air 2.0 28 Intake and Output 04/26/17 04/27/17 19:00 07:00 Intake Total 810 ml 870 ml Balance 810 ml 870 ml Free Water 150 ml 150 ml Tube Feeding 660 ml 720 ml # Voids 3 2 Height (Feet): 6 Height (Inches): 1.00 Weight (Pounds): 146 Objective Thin WM NCAT Supple CTA RR Soft ND NT, (+) GT no edema confused, restless, moves all four SAMMI CRUM Apr 27, 2017 21:14
--- NOTE | 2017-04-29 22:15 | General Progress Note ---
Assessment/Plan Assessment/Plan encephalopathy agitation d/w brother zypcelia Subjective Date patient seen: Apr 27, 2017 Neurologic/Psychiatric: Reports: anxiety, depressed, emotional problems Allergies: Coded Allergies: No Known Allergies (Unverified , 04/10/17) Subjective the pt cont to be agitated however he is manageable 1:1 sitter Objective Height (Feet): 6 Height (Inches): 1.00 Weight (Pounds): 146 Fiordaliza Koehler M.D. Apr 29, 2017 22:15
--- NOTE | 2017-05-01 14:18 | Discharge Summary ---
Discharge Summary Hospital Course Date of Admission Apr 10, 2017 at 01:55 Date of Discharge Apr 27, 2017 at 10:44 Admitting Diagnosis Altered mental status HPI Epifanio Maravilla is a 66 year old male who was admitted on Apr 10, 2017 at 01:55 for Altered Mental Status Hospital Course dc summary #[id number] Discharge Medications New Medications: Atorvastatin Calcium* (Lipitor*) 10 Mg Tablet 10 MG ORAL BEDTIME, #30 TAB Aspirin* (Aspirin*) 81 Mg Tab.chew 81 MG ORAL DAILY, #30 TAB Hydralazine HCl (Hydralazine HCl) 50 Mg Tablet 75 MG ORAL Q6HR, #60 TAB Levetiracetam (Levetiracetam) 500 Mg Tablet 1500 MG ORAL Q12HR, #60 TAB Lorazepam* (Ativan*) 1 Mg Tablet 1 MG ORAL Q6H PRN, #60 TAB Olanzapine (Zyprexa Zydis) 10 Mg Tab.rapdis 10 MG ORAL Q8HR, #30 TAB Valproic Acid (Depakene) 250 Mg Capsule 500 MG ORAL TWICE A DAY, #60 CAP Continued Medications: Amlodipine Besylate (Norvasc) 10 Mg Tablet 10 MG ORAL DAILY, TAB Aspirin* (Aspir 81*) 81 Mg Tablet.dr 81 MG ORAL DAILY, TAB Donepezil Hcl* (Donepezil Hcl*) 5 Mg Tab.rapdis 5 MG ORAL BEDTIME, TAB Escitalopram Oxalate* (Lexapro*) 10 Mg Tablet 5 MG ORAL DAILY, TAB Finasteride* (Proscar*) 5 Mg Tablet 1 MG ORAL DAILY, #30 TAB 0 Refills Hydralazine Hcl* (Hydralazine Hcl*) 50 Mg Tablet 75 MG ORAL EVERY 6 HOURS, TAB Levetiracetam* (Levetiracetam*) 500 Mg Tablet 500 MG ORAL TWICE A DAY, #60 TAB 0 Refills Levetiracetam* (Levetiracetam*) 500 Mg Tablet 1500 MG ORAL EVERY 12 HOURS, #60 TAB 0 Refills Lorazepam* (Lorazepam*) 1 Mg Tablet 1 MG ORAL EVERY 6 HOURS PRN for Agitation, TAB Olanzapine* (Zyprexa*) 10 Mg Tablet 10 MG ORAL EVERY 8 HOURS, #30 TAB 0 Refills Rosuvastatin Calcium* (Crestor*) 10 Mg Tablet 10 MG ORAL DAILY, TAB Tamsulosin Hcl (Tamsulosin Hcl*) 0.4 Mg Cap.er.24h 0.4 MG ORAL BEDTIME, CAP Valproic Acid (Valproic Acid) 250 Mg Capsule 500 MG PO EVERY 12 HOURS, CAP Discharge Discharge Disposition Patient was discharged to SNF/Subacute Facility(03) Discharge Diagnoses: Discharge Instructions Discharge Instructions Special Instructions I have been assigned to complete a D/C Summary on this account. I was not involved in the patient management Mayra Burnett NP (Vanchtein) May 01, 2017 14:18
--- NOTE | 2017-05-02 06:00 | Discharge Summary 2 SIG ---
DATE OF ADMISSION: 04/10/2017 DATE OF DISCHARGE: 04/27/2017 REASON FOR ADMISSION: 66-year-old male with history of hypertension, hyperlipidemia, seizure disorder, CVA, presented with altered mental status. The patient was only oriented to person and history was obtained from his sister, who was at the bedside. At the baseline, the patient awake, alert, and oriented x4, ambulatory, performed activities of daily living on his own. The patient's sister stated that she witnessed the patient sliding down while having upper extremity shaking, possibly seizure-like activity, which lasted 3 to 4 minutes. Afterwards the patient was altered and continued to be altered at the time of presentation to the ED. No head trauma. No tongue biting or urinary of fecal incontinence. The patient had a history of seizure activity about 6 years ago. The patient was taking Keppra. Upon evaluation in the emergency department, CT of the head revealed chronic age-related changes. Right occipital encephalomalacia consistent with old infarct. 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 Chest x-ray revealed no acute cardiopulmonary pathology. Pulse oximetry was 98% on room air. The patient had episode of bradycardia x2 , with heart rate between 30 and 40, blood pressure was stable. During that time, the patient was sleeping. However when he woke up, heart rate went back to 60 to 70. Urinalysis revealed evidence of UTI. The patient was started on empiric antibiotics. Keppra was given. EKG revealed normal sinus rhythm with right bundle-branch block and T-wave inversion in lead 3. Electrolytes were stable. Creatinine -1.5. Troponin negative. Pro BNP- 408. No leukocytosis. Mild anemia with hemoglobin -11.5 and hematocrit -35.4. The patient was admitted with altered mental status, seizures, bradycardia, and urinary tract infection. HOSPITAL COURSE: The patient was admitted. Infectious Disease , Neurology and Gastrointestinal consults were requested along with psychiatric consult. MRI of the brain revealed small focus of restricted diffusion in the left parietal deep white matter consistent with small deep white matter lacunar infarct. Neurologist diagnosed the patient with acute ischemic lacunar stroke in the left MCA. The patient was started on aspirin. The patient subsequently undergone EEG. Seizure precautions were maintained. The patient was started on Depakote and Keppra was continued. EEG revealed abnormal mild diffuse slowing and evidence of epileptiform activity, emitting from the right temporal parietal area. Lipid panel revealed elevated cholesterol, elevated LDL of 161, and the patient was placed on statin. TSH was within normal limits. Infectious Disease doctor followed the patient for urinary tract infection. Urine culture revealed E. coli ESBL. The patient status post treatment for urinary tract infection. Infectious Disease specialist recommended to observe the patient off antibiotics. No leukocytosis. No fever. Gastrointestinal specialist closely followed the patient. The patient with evidence of dysphagia. Bedside swallow evaluation was done. The patient had a poor oral intake due to the altered mental status and persistent unresponsiveness. poor oral intake. Due dysphagia along with mild anemia, the patient subsequently undergone EGD with G-tube placement on 04/19/2017. EGD revealed diminutive gastric polyps, status post biopsy. Biopsy results still pending. Tube feeding started. Strict aspiration and reflux precautions were maintained. Head of bed was elevated at all times. G-tube site care provided. The patient was able to tolerate tube feeding. Noted mild abnormal AST, likely secondary to CVA as per GI specialist , which actually resolved prior to discharge. Hepatitis panel was negative. Hemoglobin and hematocrit were closely monitored, remained on the baseline. Goal to keep hemoglobin above 8.The patient worked with physical and occupational therapists. Respiratory status was closely monitored. Supplemental oxygen titrated to keep saturation above 92%. Pulmonary toilet was on the standby as needed. Blood pressure was managed with hydralazine, calcium channel jennifer and Cozaar, and remained stable. Bowel regimen instituted. Pain management provided as needed. Psychiatrist seen and evaluated the patient, diagnosed the patient with encephalopathy and agitation. Patient was started on Zyprexa. The patient required a one-to- one sitter while in the hospital for safety. After discussion with brother, the patient's status changed to DNR status. Placement was found at the [facility] facility. Family is considering hospice care. FINAL DIAGNOSES: 1. Sepsis / systemic inflammatory response syndrome. 2. Acute ischemic lacunar stroke in the left middle cerebral artery. 3. Encephalopathy, likely secondary to acute stroke. 4. Seizure disorder exacerbation. 5. Persistent unresponsiveness. 6. Urinary tract infection with the Escherichia coli extended spectrum beta-lactamases, status post treatment. 7. Mild anemia. 8. Dysphagia. 9. Status post esophagogastroduodenoscopy with gastrostomy tube placement. 10. Hypertension. DISCHARGE MEDICATIONS: See medication reconciliation list. DISCHARGE INSTRUCTIONS: The patient was discharged to [facility] facility. Follow up with medical doctor at the facility. Javier Barreto M.D. I have been assigned to dictate discharge summary on this account and I was not involved in the patient's management. Mayra RedmondL[facility] Hospitalria N.PJulian DR: Flavio JOB#: [id number] CC: ROSA MARIA
== END 2017-04-27 10:44 | DRG 871 ==
LOC: EDBD 00:20 → EMR 00:33 → 2W 01:55 → EDBEDREQ 02:45 → 2W 04:01 → 2E 23:35 → 4E 04-15 16:10
PROC: 0DB68ZX Excision of Stomach, Via Natural or Artificial Opening Endoscopic, Diagnostic (ICD-10-PCS; principal; 2017-04-19 07:21)
PROC: 0DH63UZ Insertion of Feeding Device into Stomach, Percutaneous Approach (ICD-10-PCS; principal; 2017-04-19 07:21)
DX: A41.9 Sepsis, unspecified organism (principal); I63.9 Cerebral infarction, unspecified; G93.40 Encephalopathy, unspecified; R13.10 Dysphagia, unspecified; N39.0 Urinary tract infection, site not specified; I10 Essential (primary) hypertension; B96.20 Unspecified Escherichia coli [E. coli] as the cause of diseases classified elsewhere; Z16.12 Extended spectrum beta lactamase (ESBL) resistance; G40.909 Epilepsy, unspecified, not intractable, without status epilepticus; N19 Unspecified kidney failure; F03.90 Unspecified dementia, unspecified severity, without behavioral disturbance, psychotic disturbance, mood disturbance, and anxiety; E78.5 Hyperlipidemia, unspecified; F32.9 Major depressive disorder, single episode, unspecified; N40.0 Benign prostatic hyperplasia without lower urinary tract symptoms; E86.0 Dehydration; R00.1 Bradycardia, unspecified; D64.9 Anemia, unspecified; K31.7 Polyp of stomach and duodenum; I69.398 Other sequelae of cerebral infarction; G93.89 Other specified disorders of brain
CPT/HCPCS: 36415; 70450; 70551; 71010; 80048; 80053; 80061; 80299; 81003; 82550; 82607; 83880; 84443; 84484; 85007; 85025; 85610; 85730; 86705; 86709; 86803; 87086; 87181; 87340; 93005; 94003; 94150; 94640; 94760; 95819; 99285; J8499